=== PATIENT | male | born 1965 | race African-American/Black ===

== ENCOUNTER 2018-10-11 07:45 | Inpatient (IN) ==
--- NOTE | 2018-10-10 23:26 | History & Physical Report ---
Date of Service October 10, 2018 Assessment & Plan (1) PAD (peripheral artery disease): 2. Nonhealing left lower extremity ulceration/gangrene 3. HIV/question HCV 4. Hypertension 5. Dyslipidemia 6. Neuropathy Patient with left lower extremity gangrene involving first second and third digits and extending into the forefoot. Patient previously seen by orthopedics and digit amputation versus TMA versus BKA being discussed. Review of prior vascular imaging suggest multilevel complex peripheral arterial disease. Left ANGÉLICA consistent with severe ischemia inadequate for wound healing. Plan to proceed with bilateral lower extremity angiogram and potential endovascular intervention to left lower extremity PAD. History of Present Illness Primary Care Provider: [facility] Jn Mr. Iqbal is a 53-year-old prisoner at [facility] with a history of HIV, ?HCV, hypertension, dyslipidemia, reported schizoaffective disorder, neuropathy seen initially in the setting of peripheral arterial disease and extensive left lower extremity ulceration/gangrene. Patient is a difficult historian but reports ulceration involving his distal lower extremity for at least the last 2 months. Despite treatment at the present wound he will continue to progress and was seen by the wound care center initially on 09/17/2018. Prior to recent wounds patient states was active, exercising without claudication. Denies any history of prior vascular intervention. No history of diabetes. Prior vascular testing: CTA 07/2018 extensive atherosclerotic plaque without aneurysm or significant stenosis. Left distal common iliac stenosis with greater than 50% stenosis, significant stenosis of proximal left external iliac (max diameter 6 mm, min 4 mm external iliac). Short occlusion of left SFA with reconstitution in the proximal segment and severe diffuse disease involving remainder of SFA. Popliteal irregularities. Bilateral three-vessel runoff. Arterial duplex 09/2018: Right ANGÉLICA/TBI 1.0/0.73, left ANGÉLICA/TBI 0.31/unobtainable Right 50 to 74% stenosis in right common iliac/proximal external iliac. Mid SFA 50 to 74% stenosis. 75 to 99% mid ELPIDIO Left proximal external iliac 75 to 99% stenosis (PSV 508), 75 to 99% proximal left PFA (PSV 738), 75 to 99% proximal to mid SFA (PSV 252), 75 to 99% left mid ELPIDIO Allergies Allergy/AdvReac Type Severity Reaction Status Date / Time ibuprofen [From Motrin] AdvReac Unknown Verified 09/17/18 14:24 Home Medications Home Medications Medication Instructions Recorded Confirmed Type abacavir 600 mg-dolutegravir 50 1 tab PO DAILY 09/17/18 09/17/18 History mg-lamivudine 300 mg tablet amoxicillin 875 mg-potassium 1 tab PO BID 09/17/18 09/17/18 History clavulanate 125 mg tablet aspirin 81 mg tablet,delayed 81 mg PO DAILY 09/17/18 09/17/18 History release atorvastatin 10 mg tablet 10 mg PO DAILY 09/17/18 09/17/18 History celecoxib 100 mg capsule 100 mg PO HS cap 09/17/18 09/17/18 History cholecalciferol (vitamin D3) 5,000 5,000 units PO DAILY 09/17/18 09/17/18 History unit capsule diphenhydramine 25 mg capsule 50 mg PO HS cap 09/17/18 09/17/18 History emollient combination no.92 ea TOP ml 09/17/18 09/17/18 History topical lotion gabapentin 400 mg capsule 400 mg PO BID 09/17/18 09/17/18 History lisinopril 10 mg tablet 10 mg PO DAILY 09/17/18 09/17/18 History Past Med/Surg History Medical History HIV (human immunodeficiency virus infection) (Chronic) HTN (hypertension) (Chronic) Hyperlipidemia (Chronic) PVD (peripheral vascular disease) (Chronic) Schizo-affective schizophrenia, chronic condition (Chronic) Social History Preferred Language: Peruvian Communication Ability: Effective Hearing Ability: Normal Beliefs That Will Affect Care: None Review of Systems All systems reviewed & are unremarkable except as noted in HPI & below Physical Exam Constitutional: WD/WN, vitals as above no acute distress Eyes: + anicteric sclerae Respiratory: normal respiratory effort, lungs clear to auscultation Cardiovascular: Rate/Rhythm: regular rate Nonpalpable DP/PT pulses on the left. Toes dressed. Wound clinic images reviewed. Small superficial ulceration involving left medial leg, large superficial ulceration with gangrene involving left medial foot and gangrene involving first second and third toes Gastrointestinal (Abdomen): Inspection/Auscultation: normal bowel sounds Percussion/Palpation: abdomen soft; abdomen nontender Skin: + lesion, + ulcer and + wound Neurologic: moves all extremities Psychiatric: Orientation: alert and oriented x 3 ASA Classification ASA ASA3
[~2018-10-11 07:45] MED LIST: SODIUM CHLORIDE 0.9% 1000ML 1,000 ML IV SCH
[2018-10-11] MEDS ORDERED: NITROGLYCERIN/D5W 100MCG/ML 20ML SYR ONE (09:39)
--- NOTE | 2018-10-11 10:04 | History & Physical Bridge Note ---
Date of Service October 11, 2018 History & Physical Bridge Note I have examined the patient, reviewed the History & Physical and in the interval since the performance of the History & Physical I have noted the following changes of clinical significance: no changes noted
--- NOTE | 2018-10-11 10:05 | Pre Anesthesia Assessment ---
Date of Service October 11, 2018 Pre Sedation Assessment Vital Signs Temp Pulse Resp BP Pulse Ox 10/11/18 08:13 36.7 C 85 18 151/89 H 100 Cardiovascular RRR, no murmur, no edema Respiratory normal respiratory effort, lungs clear to auscultation Pre-Sedation Airway Assessment Smoking Status: Current some day smoker Hx Sleep Apnea: No Hx Difficult Intubation: No Short, Thick Neck: No Thyromental Distance: > or= 3.5 Finger Breadths Oral Cavity: + WNL Mallampati Class: I ASA: ASA3 NPO Status Date of Last Intake of Fluids: 10/10/18 Time of Last Intake of Fluids: 23:00 Date of Last Intake of Solid Food: 10/10/18 Time of Last Intake of Solid Foods: 23:00 Procedure Planning Contraindications for Sedation: none Current Medications Reviewed: Yes Notes The planned sedation has been discussed with the patient. Informed Consent was obtained. I have identified the patient, determined the appropriateness of sedation and have assessed the patient immediately prior to the procedure. All medicine(s) and interventions are by my order.
[2018-10-11] MEDS ORDERED: HEPARIN SOD (PORCINE) 1000 UNIT/ML 10 ML VIAL ONE (11:18)
[2018-10-11] MEDS ORDERED: fentaNYL citrate 100 MCG/2 ML VIAL ONE ×3 (11:18→12:37)
[2018-10-11] MEDS ORDERED: MIDAZOLAM HCL 1 MG/ML 2ML VIAL ONE ×2 (11:18→12:05)
[2018-10-11] MEDS ORDERED: LIDOCAINE HCL 1% 20 ML VIAL INJ ONE (11:43)
[2018-10-11] MEDS ORDERED: NiCARDipine HCL INJ 2.5 MG/ML 10 ML AMP ONE (11:54)
[2018-10-11] MEDS ORDERED: NITROGLYCERIN 5 MG/ML 10 ML VIAL ONE (11:54)
[2018-10-11] MEDS ORDERED: MIX: VIPERSLIDE 20ML + NITRO 5MG + NSS 1000ML IART ONE (14:56)
--- NOTE | 2018-10-11 14:58 | Post Anesthesia Assessment ---
Date of Service October 11, 2018 Post Sedation Assessment Vital Signs Temp Pulse Pulse Resp BP BP Pulse Ox 10/11/18 14:50 93 H 15 145/90 H 99 10/11/18 14:45 92 H 15 122/86 100 10/11/18 14:40 91 H 15 154/88 H 100 10/11/18 14:35 92 H 15 131/92 100 10/11/18 14:30 99 H 15 137/85 100 10/11/18 14:25 90 17 137/90 100 10/11/18 14:20 87 17 151/89 H 100 10/11/18 14:15 89 15 151/89 H 100 10/11/18 14:10 100 H 13 155/85 H 100 10/11/18 14:05 91 H 13 160/94 H 100 10/11/18 14:00 87 15 154/86 H 100 10/11/18 13:55 86 15 148/86 H 100 10/11/18 13:50 97 H 15 165/89 H 100 10/11/18 13:45 94 H 15 164/87 H 100 10/11/18 13:40 88 15 143/93 H 100 10/11/18 13:35 98 H 15 145/99 H 100 10/11/18 13:30 97 H 15 161/92 H 100 10/11/18 13:25 95 H 15 170/94 H 100 10/11/18 13:20 99 H 15 146/90 H 100 10/11/18 13:15 96 H 14 158/92 H 100 10/11/18 13:10 102 H 15 170/97 H 100 10/11/18 13:05 101 H 14 173/100 H 100 10/11/18 13:00 105 H 16 175/99 H 100 10/11/18 12:55 109 H 15 176/107 H 100 10/11/18 12:50 107 H 14 179/99 H 100 10/11/18 12:45 107 H 17 182/117 H 100 10/11/18 12:40 110 H 17 170/104 H 100 10/11/18 12:35 111 H 14 190/110 H 100 10/11/18 12:30 114 H 16 164/113 H 100 10/11/18 12:25 114 H 16 164/113 H 100 10/11/18 12:20 105 H 21 195/111 H 100 10/11/19 12:16 109 H 22 167/94 H 10/11/18 12:11 97 H 20 188/101 H 10/11/18 12:06 95 H 14 166/90 H 10/11/18 12:01 87 16 180/94 H 10/11/18 11:56 89 13 155/90 H 10/11/18 11:51 93 H 14 155/95 H 10/11/18 11:46 98 H 14 169/105 H 10/11/18 11:41 85 20 154/81 H 10/11/18 11:36 82 20 159/91 H 10/11/18 11:22 87 20 169/88 H 10/11/18 08:13 36.7 C 85 18 151/89 H 100 Recovery Score Activity: Moves 4 extremities Respiration: Deep Breath/Cough Circulation: +/-20% PreAnes Value Consciousness: Fully Awake Oxygen Saturation: O2 needed for >90% Discharge Sedation Level of Care: Fast Track Phase II Post Sedation Plan On clinical assessment, the patient appears to have tolerated the sedation without complications. Patient is recovering as anticipated. Patient will continue to be monitored by nursing and may be discharged when sedation discharge criteria are met per below protocol. Upon Completions of procedure and additional 15 minutes continue every 5 minute vital signs and the P.A.R. score; then discharge to a Phase I or Fast Track to Phase II per the following guidelines: * Discharge Patient to appropriate Phase II area if PAR is 8 or greater or return to pre- procedure baseline. The post - procedure orders will be as directed. * If PAR score is less than 8 or not return to pre-procedure baseline then patient will follow Phase I monitoring till PAR is reached for Phase II. The Phase I may be done in procedure room or may call to secure a Phase I area. * If naloxone or flumazenil are used for reversal, hold in Phase I for continued monitoring from when last reversal dose was given for a minimum of 60 minutes or longer pending the nurse and/or physician discretion of patient condition before discharge to Phase II. Please call the Sedation Physician to re-evaluate and complete post-note for discharge to Phase II area. Do NOT discharge from procedure sedation or Phase 1 until post- sedation evaluation note is complete by procedure /sedation MD Sedation Discharge Instructions to be given to the patient at discharge to home.
[2018-10-11] MEDS ORDERED: ACETAMINOPHEN 325 MG TAB PO PRN (15:05)
[2018-10-11] MEDS ORDERED: ONDANSETRON INJ 2 MG/ML 2 ML VIAL IV PRN (15:05)
[2018-10-11] MEDS ORDERED: CLOPIDOGREL BISULFATE 300 MG TAB PO STA (15:05)
--- NOTE | 2018-10-11 15:05 | Post Operative Brief Note ---
Immediate Post Op Note v1 Date of Surgery October 11, 2018 Pre & Post Diagnosis Operation Date: 10/11/18 08:00 <No data on this case meets the specified criteria> Operation Date: 10/11/18 10:00 Pre-Op Diagnosis: Peripheral Arterial Disease Post-Op Diagnosis: Peripheral Arterial Disease Procedure Operation Date: 10/11/18 08:00 <No data on this case meets the specified criteria> Operation Date: 10/11/18 10:00 Actual Procedures p Bilateral Lower Extremitiy Angiogram, Percutaneous Transluminal Angioplasty and Stenting of Left Superficial Femoral Artery, Moderate Sedation from 1136 - (Bilateral) - Thomas Vázquez MD Surgeon Fortino Vázquez MD Wireless Manager Nisha Estimated Blood Loss 50 Findings Consistent with Post-Op Diagnosis Left lower extremity: Severe distal LAURY/prox external iliac stenosis. Occluded ostial SFA Severe ostial profunda 3 vessel runoff to foot Successful stenting of LAURY/external iliac with single self-expanding stent (7.0 x 60mm) Successful SEROLOGY TECHNICIAN and stenting of proximal to distal SFA (5.0 x 100 protege SES, 5.0 x 80 Tigris). SEROLOGY TECHNICIAN of SFA complicated by compromised flow in profunda -- treated with prolonged balloon dilation of ostium Concern for PROGRAMMING DEVELOPMENT PROJECT MANAGER perforation -- treated with prolonged balloon inflation. Post inflation no significant extravasation and no hematoma visible on ultrasound.
--- NOTE | 2018-10-11 15:31 | Consultation ---
Date of Consultation October 11, 2018 Assessment & Plan (1) PAD (peripheral artery disease): s/p angio and stenting with Dr. Vázquez on 10/11 Question of MINING AND QUARRYING MACHINERY REPAIRER perf, s/p balloon inflation on 10/11 Overnight monitoring Planning for duplex in AM and if WNL, possible d/c Anticoagulation, diet as per Dr. Vázquez (2) Schizo affective schizophrenia: Pt states he is on no psych medications Paperwork with him in room supports this (3) HTN (hypertension): continue home meds (4) Peripheral neuropathy: continue home meds (5) HIV (human immunodeficiency virus infection): continue home meds (6) DVT prophylaxis: As per Dr. Vázquez History of Present Illness Attending Physician: Fortino Vázquez MD History of Present Illness 53 y/o M who was admitted on 10/11 s/p L arterial angio and stenting with Dr. Vázquez. Dr. Vázquez reports that during the procedure there was some concern for possible perfed MINING AND QUARRYING MACHINERY REPAIRER. Balloon inflation was done and per his report, pt is stable now. He does need admitted for overnight monitoring. Dr. Vázquez plans for f/u duplex US in AM. Briefly, pt had a hx of a nonhealing L foot ulcer that became gangrenous. He was seen by both ortho and [facility] and ultimately sent to Dr. Vázquez for angio and stenting. Pt denies fever, SOB, chest pain, abd pain, n/v/c/d, LE swelling. He states he does have pain and itching to the L LE. He notes that he is very hungry. Tolerating water currently. Allergies Allergy/AdvReac Type Severity Reaction Status Date / Time ibuprofen [From Motrin] AdvReac Unknown Verified 10/11/18 08:07 Home Medications Home Medications Medication Instructions Recorded Confirmed Type abacavir 600 mg-dolutegravir 50 1 tab PO DAILY 09/17/18 10/11/18 History mg-lamivudine 300 mg tablet amoxicillin 875 mg-potassium 1 tab PO BID 09/17/18 10/11/18 History clavulanate 125 mg tablet aspirin 81 mg tablet,delayed 81 mg PO DAILY 09/17/18 10/11/18 History release atorvastatin 10 mg tablet 10 mg PO DAILY 09/17/18 10/11/18 History celecoxib 100 mg capsule 100 mg PO HS cap 09/17/18 10/11/18 History cholecalciferol (vitamin D3) 5,000 5,000 units PO DAILY 09/17/18 10/11/18 History unit capsule diphenhydramine 25 mg capsule 50 mg PO HS cap 09/17/18 10/11/18 History emollient combination no.92 ea TOP ml 09/17/18 09/17/18 History topical lotion gabapentin 400 mg capsule 800 mg PO BID 09/17/18 10/11/18 History lisinopril 10 mg tablet 10 mg PO DAILY 09/17/18 10/11/18 History Patient History Medical History HIV (human immunodeficiency virus infection) (Chronic) HTN (hypertension) (Chronic) Hyperlipidemia (Chronic) PVD (peripheral vascular disease) (Chronic) Schizo-affective schizophrenia, chronic condition (Chronic) Social History Preferred Language: Croatian Communication Ability: Effective Hearing Ability: Normal Overhead Cleaner Maintainer Required: No Beliefs That Will Affect Care: None Current Living Situation: Other Current Living Situation Comment: correctional facility Other Information That Helps Us Care for You: No Feels Safe at Home: Yes Safety Concerns: Feels Safe At This Time Smoking Status: Current some day smoker Hx Alcohol Use: No Hx Substance Use: No Review of Systems Review of Systems: Pertinent positives and negatives reviewed in HPI--all others negative Physical Exam Constitutional: WD/WN, vitals as above Eyes: normal visual syed by confrontation and + anicteric sclerae Neck: normal visual inspection and trachea midline Respiratory: normal respiratory effort, lungs clear to auscultation Cardiovascular: Rate/Rhythm: regular rate and regular rhythm Gastrointestinal (Abdomen): Inspection/Auscultation: abdomen not distended Percussion/Palpation: abdomen soft; abdomen nontender Musculoskeletal: Head/Neck/Chest: normocephalic and head atraumatic negative for edema, peripheral pulses intact Skin: L LE with wrapping, clean and dry Neurologic: awake; not confused Speech / Cognition: normal speech Psychiatric: A+Ox3, euthymic affect Results & Data Vital Signs (Past 12 Hours) Vital Signs Temp Pulse Pulse Resp BP BP Pulse Ox 10/11/18 15:05 94 H 15 135/91 98 10/11/18 15:00 92 H 15 147/78 H 98 10/11/18 14:55 103 H 15 159/86 H 99 10/11/18 14:50 93 H 15 145/90 H 99 10/11/18 14:45 92 H 15 122/86 100 10/11/18 14:40 91 H 15 154/88 H 100 10/11/18 14:35 92 H 15 131/92 100 10/11/18 14:30 99 H 15 137/85 100 10/11/18 14:25 90 17 137/90 100 10/11/18 14:20 87 17 151/89 H 100 10/11/18 14:15 89 15 151/89 H 100 10/11/18 14:10 100 H 13 155/85 H 100 10/11/18 14:05 91 H 13 160/94 H 100 10/11/18 14:00 87 15 154/86 H 100 10/11/18 13:55 86 15 148/86 H 100 10/11/18 13:50 97 H 15 165/89 H 100 10/11/18 13:45 94 H 15 164/87 H 100 10/11/18 13:40 88 15 143/93 H 100 10/11/18 13:35 98 H 15 145/99 H 100 10/11/18 13:30 97 H 15 161/92 H 100 10/11/18 13:25 95 H 15 170/94 H 100 10/11/18 13:20 99 H 15 146/90 H 100 10/11/18 13:15 96 H 14 158/92 H 100 10/11/18 13:10 102 H 15 170/97 H 100 10/11/18 13:05 101 H 14 173/100 H 100 10/11/18 13:00 105 H 16 175/99 H 100 10/11/18 12:55 109 H 15 176/107 H 100 10/11/18 12:50 107 H 14 179/99 H 100 10/11/18 12:45 107 H 17 182/117 H 100 10/11/18 12:40 110 H 17 170/104 H 100 10/11/18 12:35 111 H 14 190/110 H 100 10/11/18 12:30 114 H 16 164/113 H 100 10/11/18 12:25 114 H 16 164/113 H 100 10/11/18 12:20 105 H 21 195/111 H 100 10/11/18 12:16 109 H 22 167/94 H 10/11/18 12:11 97 H 20 188/101 H 10/11/18 12:06 95 H 14 166/90 H 10/11/18 12:01 87 16 180/94 H 10/11/18 11:56 89 13 155/90 H 10/11/18 11:51 93 H 14 155/95 H 10/11/18 11:46 98 H 14 169/105 H 10/11/18 11:41 85 20 154/81 H 10/11/18 11:36 82 20 159/91 H 10/11/18 11:22 87 20 169/88 H 10/11/18 08:13 36.7 C 85 18 151/89 H 100
[2018-10-11] MEDS: SODIUM CHLORIDE 0.9% 1000ML 1,000 ML IV SCH (15:33)
--- NOTE | 2018-10-11 16:30 | Operative Report ---
Post Operative Report Pre & Post Diagnosis Operation Date: 10/11/18 08:00 <No data on this case meets the specified criteria> Operation Date: 10/11/18 10:00 Pre-Op Diagnosis: Peripheral Arterial Disease Post-Op Diagnosis: Peripheral Arterial Disease Procedure Operation Date: 10/11/18 08:00 <No data on this case meets the specified criteria> Operation Date: 10/11/18 10:00 Actual Procedures p Bilateral Lower Extremitiy Angiogram, Percutaneous Transluminal Angioplasty and Stenting of Left Superficial Femoral Artery, Moderate Sedation from 1136 - (Bilateral) - Thomas Vázquez MD Surgeon Fortino Vázquez MD Senior Reliability Engineer Nisha Estimated Blood Loss 50 Findings Consistent with Post-Op Diagnosis Left lower extremity findings: 70% distal LAURY/proximal external iliac with more than 30 mmHg pressure gradient Calcified BREAST BUFFER with moderate stenosis Severe ostial profunda stenosis Occluded SFA at ostium. Reconstitutes in mid segment via collaterals from profunda. 40-50% distal SFA/profunda disease. Patent three-vessel runoff to the foot Right lower extremity findings: Mild to moderate external iliac stenosis BREAST BUFFER with minimal disease and suitable for device closure Specimens none Drains none Complications none Disposition Disposition: PCU Description of Procedure Right common femoral access obtained via under ultrasound guidance, short 5Fr sheath place LLE angiogram performed with RIM catheter Up an over with RIM catheter and glide advantage wire 7 Fr 45 cm destination sheath placed to BREAST BUFFER 0.18V 18 wire placed into profunda With aid of a quick cross catheter and glide advantage wire able to cross ostial SFA occlusion. Intraluminal position confirmed with injection through a cross catheter SFA dilated with 4.0 and 5.0 balloons SFA proximal to distal vessel stented with 2 stents (proximal 5.0 x 100 protege self-expanding, mid 5.0 x 80 Tigris) With ballooning of ostial SFA flow compromise in profunda Ostium of profunda dilated with 3.0 balloon After dilation concern for possible BREAST BUFFER perforation treated with multiple prolonged balloon inflations to BREAST BUFFER Ultrasound obtained in OR showed no hematoma and intact flow in BREAST BUFFER, SFA/profunda Destination sheath pullback across external iliac stenosis with more than 30 mmHg gradient 7 x 60 mm self-expanding stent placed from common iliac to external iliac Post procedure good angiographic result, no evidence of residual dissection/perforation and with well-expanded stents and three-vessel distal runoff. Contrast used: 300 Access closure: Starclose Summary: 1. Left lower extremitysevere iliac stenosis, severe ostial profunda disease, occluded ostial to mid SFA. Three-vessel distal runoff 2. Right lower extremitymild to moderate external iliac disease 3. Successful stenting of common iliac/proximal external iliac artery with single self-expanding stent (7.0 x 60 mm). 4. Successful angioplasty, stenting of proximal to distal SFA with 2 overlapping stents (5.0 x 100 protoge stent, 5.0 Tigris). 5. MAILING MACHINE OPERATOR of ostial profunda/BREAST BUFFER in setting of questionable perforation. No extravasation on final images and no hematoma on ultrasound. Recommendations: Continue DAPT with ASA/Clopidogrel for 1 month Repeat arterial duplex tomorrow. Orthopedics consult to further discuss left lower extremity amputation options. Follow-up non-invasive testing in 1 moth. I attest to the content of the Intraoperative Record and any orders documented therein. Any exceptions are noted below.
[2018-10-11] MEDS: CLOPIDOGREL BISULFATE 75 MG TAB PO SCH (16:38)
[2018-10-11] MEDS ORDERED: PNEUMOCOCCAL POLYSACCHARIDES 25 MCG/0.5 ML VIAL/SYR IM ONE (17:00)
[2018-10-11] MEDS ORDERED: PNEUMOCOCCAL ADMINISTRATION CHARGE ONE (17:00)
[2018-10-11] MEDS: AMOXICILLIN/CLAVULANATE 875 MG TAB PO SCH (20:25)
[2018-10-11] MEDS: GABAPENTIN 400 MG CAP PO SCH (20:25)
[2018-10-12] MEDS: SODIUM CHLORIDE 0.9% 1000ML 1,000 ML IV SCH ×2 (00:50→10:38)
[2018-10-12 06:08] LABS: Basophils # (auto) 0.01 K/uL (0-0.2); Basophils % (auto) 0.1 %; Eosinophils # (auto) 0.03 K/uL (0-0.5); Eosinophils % (auto) 0.3 %; Hematocrit (blood only) 32.4 % (42-52); Hemoglobin 10.7 g/dL (14.0-18.0); Immature Granulocytes # (auto) 0.03 K/uL (0.00-0.02); Immature Granulocytes % (auto) 0.3 %; Lymphocytes # (auto) 1.79 K/uL (1.2-3.4); Lymphocytes % (auto) 15.8 %; Mean Corpuscular Volume 84.6 fL (80-100); Mean Platelet Volume 9.1 fL (7.4-10.4); Monocytes # (auto) 1.51 K/uL (0.11-0.59); Monocytes % (auto) 13.3 %; Neutrophils # (auto) 7.97 K/uL (1.4-6.5); Neutrophils % (auto) 70.2 %; Platelet Count 240 K/uL (130-400); RDW Coefficient of Variation 13.9 % (11.5-14.5); RDW Standard Deviation 42.4 fL (36.4-46.3); Red Blood Count 3.83 M/uL (4.7-6.1); White Blood Count 11.34 K/uL (4.8-10.8)
[2018-10-12 06:35] LABS: Creatinine Clr Calc Pharmacy 72.6 ml/min; Est GFR (African American) 93.2; Est GFR (Non-African American) 80.5
[2018-10-12] MEDS: AMOXICILLIN/CLAVULANATE 875 MG TAB PO SCH (08:23)
[2018-10-12] MEDS: GABAPENTIN 400 MG CAP PO SCH ×2 (08:23→20:45)
[2018-10-12] MEDS: LISINOPRIL 10 MG TAB PO SCH (08:23)
[2018-10-12] MEDS: ATORVASTATIN 40 MG TAB PO SCH (08:24)
[2018-10-12] MEDS: CHOLECALCIFEROL 1,000 UNITS TAB PO SCH (08:24)
[2018-10-12] MEDS: ASPIRIN 81 MG ECTAB PO SCH (08:25)
[2018-10-12] MEDS: HYDROCODONE/ACETAMOPHEN 5/325MG TAB PO PRN ×2 (09:05→16:34)
--- NOTE | 2018-10-12 12:35 | Ultrasound Report ---
Study: Arterial Doppler left leg. history: Postoperative claudication FINDINGS: Critical stenosis with velocities exceeding 600 cm/s mid common femoral head the stent is p atent. There also considerable velocity increase is immediately distal to the stent. Posterior tibial ankle brachial index on the left is 0.28. Dorsalis pedis is 0.26. IMPRESSION: 1. Findings consistent with a critical stenosis immediately proximal to the left femoral arterial nitin nt. 2. Moderate stenosis immediately distal to the stent. 3. Stent itself is patent. Electronically signed by: Terry Juan M.D. 10/12/2018 12:34 PM
--- NOTE | 2018-10-12 17:11 | Cardiology Progress Note ---
Date of Service October 12, 2018 Assessment & Plan (1) PAD (peripheral artery disease): 2. Nonhealing left lower extremity ulceration/gangrene 3. HIV/question HCV 4. Hypertension 5. Dyslipidemia 6. Neuropathy Post Iliac and SFA stenting yesterday. Reviewed repeat arterial duplex today -- has residual ostial SFA disease and compromised flow in profunda. ANGÉLICA <0.30. Discussed options with [facility] and [facility] vascular surgery. in the setting of extensive gangrene/?likely need for BKA, utility of open revascularization felt to be limited. Feel reasonable to try and optimize flow with repeat angioplasty to SFA/profunda on Sunday. Ortho consulted. Continue ASA/plavix. Subjective Patient feeling well today. No pain at right WELDER METAL FAB access. No pain in left lower extremity. Review of Systems Review of Systems: All systems reviewed & are unremarkable except as noted in HPI & below Physical Exam Constitutional: WD/WN, vitals as above no acute distress Eyes: + anicteric sclerae ENMT: Mallampati Class: I Respiratory: normal respiratory effort, lungs clear to auscultation Cardiovascular: RRR, no murmur, no edema Rate/Rhythm: regular rate Vessels: no JVD RT WELDER METAL FAB access small residual hematoma. Pulse intact LT WELDER METAL FAB pulse patent, diminished popliteal. faint DP pulses. Extensive, foul smelling LLE gangrene. Lymphadenopathy Gastrointestinal (Abdomen): Inspection/Auscultation: normal bowel sounds Percussion/Palpation: abdomen soft; abdomen nontender Skin: + lesion, + ulcer and + wound Neurologic: moves all extremities Psychiatric: Orientation: alert and oriented x 3 Results & Data Vital Signs (Past 12 Hours) Vital Signs Temp Pulse Pulse Resp BP BP Pulse Ox 10/12/18 15:37 37 C 88 20 126/58 L 100 10/12/18 15:18 88 10/12/18 11:13 36.8 C 83 18 132/72 100 10/12/18 08:00 86 10/12/18 07:04 36.9 C 86 18 156/76 H 92
[2018-10-12] MEDS ORDERED: VANCOMYCIN CONSULT ACTIVE PRN (18:52)
[2018-10-12] MEDS ORDERED: PIPERACILL/TAZOBAC CONSULT ACTIVE PRN (18:52)
--- NOTE | 2018-10-12 18:55 | Hospitalist Progress Note ---
Date of Service October 12, 2018 Assessment & Plan (1) Gangrene of left foot: Secondary to severe PAD This is dry gangrene No evidence of sepsis at this time, afebrile but does have a leukocytosis -DC p.o. Augmentin and switch to IV Zosyn and vancomycin for broad spectrum coverage to prevent spread of infection and sepsis while awaiting further vascular intervention and likely BKA -Follow clinically -Follow CBC in the morning -Continue pain control and Benadryl as needed for itching of the foot-patient requests stronger anti-itch medicine-we will give IV Benadryl at bedtime (2) PAD (peripheral artery disease): Status post angiography with Iliac and SFA stenting on 10/[address] Vázquez Question of INSPECTION MACHINE TENDER perf during the procedure, s/p balloon inflation on 10/11-now stable and no evidence of bleeding Repeat arterial Doppler of the left lower extremity today with residual ostial SFA disease and compromised flow in profunda. ANGÉLICA <0.30. Dr. Vázquez discussed options with [facility] and [facility] vascular surgery. In the setting of extensive gangrene/?likely need for BKA, utility of open revascularization felt to be limited. -Dr. Vázquez plans to try and optimize flow with repeat angioplasty to SFA/profunda on Sunday. Ortho consulted-discussed case with orthopedics and will perform a minimum a Symes amputation and possibly BKA depending on outcome of repeat revascularization attempt on Sunday. Continue ASA/plavix, continue statin (3) Schizo affective schizophrenia: Pt states he is on no psych medications Paperwork with him supports this (4) HTN (hypertension): Controlled -Continue lisinopril 10 mg daily (5) Peripheral neuropathy: Fairly well-controlled -Continue gabapentin, hydrocodone as needed (6) HIV (human immunodeficiency virus infection): -I do not have his most recent CD4 count or laboratory values otherwise pertaining to his HIV It appears he is not on any prophylactic medications as per his home medication list, therefore I would presume he has a good count -His home Triumeq is not available here-I have asked the [facility] guards to obtain it from the [facility] and bring it tomorrow so he can continue on it (7) Itch: Benadryl 50 mg p.o. every 8 hours as needed itch during the day and 25 mg IV nightly scheduled (8) DVT prophylaxis: No chemical prophylaxis at this time due to recent angioplasty with procedure and suspected INSPECTION MACHINE TENDER perforation -Disposition-remain on PCU/telemetry We will accept this patient onto our hospitalist service as the primary attending as discussed with cardiology Continued stay Subjective Patient reports a lot of itching in the left foot. He is upset that he might have to have a BKA. Denies chest pain or shortness of breath. I discussed the case with cardiology and with orthopedic surgery. Telemetry with normal sinus rhythm with rates in the 80s to 90s Review of Systems Review of Systems: All systems reviewed & are unremarkable except as noted in HPI & below Physical Exam Constitutional: + cachectic; no acute distress Eyes: + anicteric sclerae Neck: trachea midline, no thyromegaly Respiratory: normal respiratory effort, lungs clear to auscultation Cardiovascular: RRR, no murmur, no edema Vessels: + dorsalis pedis pulses abnormal (On left) Musculoskeletal: Extremities: + extremities abnormal to inspection (Left great through fourth toes all blackened, history of old, dorsal foot with open wound no exudate) and no cyanosis Neurologic: moves all extremities and awake; no focal motor deficits Psychiatric: A+Ox3, euthymic affect Results & Data Vital Signs (Past 12 Hours) Vital Signs Temp Pulse Pulse Resp BP BP Pulse Ox 10/12/18 15:37 37 C 88 20 126/58 L 100 10/12/18 15:18 88 10/12/18 11:13 36.8 C 83 18 132/72 100 10/12/18 08:00 86 10/12/18 07:04 36.9 C 86 18 156/76 H 92 Laboratory Results 10/12/18 10/12/18 Range/Units 05:34 05:34 WBC 11.34 H (4.8-10.8) K/uL RBC 3.83 L (4.7-6.1) M/uL Hgb 10.7 L (14.0-18.0) g/dL Hct 32.4 L (42-52) % MCV 84.6 (80-100) fL MCH 27.9 (25-34) pg MCHC 33.0 (32-36) g/dL RDW Std Deviation 42.4 (36.4-46.3) fL RDW Coeff of Joanna 13.9 (11.5-14.5) % Plt Count 240 (130-400) K/uL MPV 9.1 (7.4-10.4) fL Immature Gran % (Auto) 0.3 % Neut % (Auto) 70.2 % Lymph % (Auto) 15.8 % [place] % (Auto) 13.3 % Eos % (Auto) 0.3 % Baso % (Auto) 0.1 % Immature Gran # (Auto) 0.03 H (0.00-0.02) K/uL Neut # (Auto) 7.97 H (1.4-6.5) K/uL Lymph # (Auto) 1.79 (1.2-3.4) K/uL [place] # (Auto) 1.51 H (0.11-0.59) K/uL Eos # (Auto) 0.03 (0-0.5) K/uL Baso # (Auto) 0.01 (0-0.2) K/uL Creatinine 1.04 (0.6-1.4) mg/dl Est Cr Clr Drug Dosing 72.6 ml/min Est GFR ( Amer) 93.2 Est GFR (Non-Af Amer) 80.5 Diagnostic Findings Study: Arterial Doppler left leg. history: Postoperative claudication FINDINGS: Critical stenosis with velocities exceeding 600 cm/s mid common femoral head the stent is patent. There also considerable velocity increase is immediately distal to the stent. Posterior tibial ankle brachial index on the left is 0.28. Dorsalis pedis is 0.26. IMPRESSION: 1. Findings consistent with a critical stenosis immediately proximal to the left femoral arterial stent. 2. Moderate stenosis immediately distal to the stent. 3. Stent itself is patent.
[2018-10-12] MEDS ORDERED: VANCOMYCIN HCL 1,000 MG in SODIUM CHLORIDE 0.9% 250 ML IV SCH (19:00)
[2018-10-12] MEDS ORDERED: PIPERACILLIN/TAZOBACTAM 3.375 GM in DEXTROSE 5% 100 ML IV SCH (19:00)
[2018-10-12] MEDS ORDERED: VANCOMYCIN HCL 1,500 MG in SODIUM CHLORIDE 0.9% 500 ML IV ONE (20:00)
[2018-10-12] MEDS ORDERED: PIPERACILLIN/TAZOBACTAM 3.375 GM in DEXTROSE 5% 100 ML IV ONE (20:00)
[2018-10-12] MEDS: DiphenhydrAMINE HCL 50 MG/ML VIAL IV SCH (20:46)
[2018-10-13] MEDS: SODIUM CHLORIDE 0.9% 1000ML 1,000 ML IV SCH ×2 (00:18→07:27)
--- NOTE | 2018-10-13 00:59 | Consultation Report ---
DATE OF CONSULTATION: 10/12/2018 PERTINENT HISTORY: This is a 53-year-old gentleman seen at request of Dr. Thomas Vázquez regarding left foot gangrene. He had been scheduled for intravascular procedure. Dr. Vázquez for vascular insufficiency and had some potential complications. The patient was admitted to the hospital. He is going to repeat procedure and attempt revascularization. The patient has a complicated medical course and severe advanced gangrene with severe ischemia. PAST MEDICAL HISTORY: Hypertension, dyslipidemia, peripheral vascular disease, HIV, question HCV, schizoaffective disorder, neuropathy, extensive left lower extremity ulceration gangrene. PAST SURGICAL HISTORY: Prior percutaneous vascular procedure with stenting. ALLERGIES: IBUPROFEN, UNKNOWN REACTION. MEDICATIONS: Please note the extensive list provided in the medical record. SOCIAL HISTORY: Incarcerated individual, lives in correctional facility. He smokes cigarettes. Denies alcohol or drug use. PHYSICAL EXAM: GENERAL: This is a cachectic appearing 53-year-old gentleman who is present with 2 guards at bedside. He is awake and alert, oriented x3. Speech clear and fluent. Affect is appropriate. EXTREMITIES: Examination of left lower extremity demonstrates a quarter-sized lesion on his mid medial tibia. He has obvious gangrene of the first, second, third and portion of the 4th toes with a black and hardened skin. Limited if any range of motion both active and passive at the forefoot, of the first, second and third and some of the 4th toes. He has a fixed rigid contracture of the right foot, nonpalpable pulses. Foot is somewhat warm. He has ischemic ulceration in the dorsal portion of the foot extending proximally to the mid foot. Zone of demarcation at the watershed region consistent with dorsalis pedis artery dysfunction. LABORATORIES AND IMAGING: Reviewed. IMPRESSION: 1. Left foot gangrene. 2. Gangrene of the 1st, 2nd, 3rd and 4th toes. 3. Severe peripheral vascular disease. 4. Ulceration of the midshaft tibia. 5. Human immunodeficiency virus positive. RECOMMENDATION: At this time, the patient is going to need some level of resection of the left foot or ankle, possibly including a below-knee amputation depending upon findings of Dr. Vázquez as the patient's next planned vascular procedure. At this point, Orthopedics will follow with you, however, when the level of resection is determined with a consultation with the other services then we can get the patient scheduled for surgery as indicated. Thank you for the opportunity to consult and care of this patient.
[2018-10-13] MEDS: PIPERACILLIN/TAZOBACTAM 3.375 GM in DEXTROSE 5% 100 ML IV SCH ×3 (02:03→19:00)
[2018-10-13 05:56] LABS: Basophils # (auto) 0.02 K/uL (0-0.2); Basophils % (auto) 0.2 %; Eosinophils # (auto) 0.09 K/uL (0-0.5); Eosinophils % (auto) 0.9 %; Hematocrit (blood only) 30.1 % (42-52); Hemoglobin 9.9 g/dL (14.0-18.0); Immature Granulocytes # (auto) 0.03 K/uL (0.00-0.02); Immature Granulocytes % (auto) 0.3 %; Lymphocytes # (auto) 1.56 K/uL (1.2-3.4); Lymphocytes % (auto) 15.1 %; Mean Corpuscular Hgb Conc 32.9 g/dL (32-36); Mean Corpuscular Volume 85.8 fL (80-100); Mean Platelet Volume 8.7 fL (7.4-10.4); Monocytes # (auto) 1.37 K/uL (0.11-0.59); Monocytes % (auto) 13.3 %; Neutrophils # (auto) 7.25 K/uL (1.4-6.5); Neutrophils % (auto) 70.2 %; Platelet Count 194 K/uL (130-400); RDW Standard Deviation 43.4 fL (36.4-46.3); Red Blood Count 3.51 M/uL (4.7-6.1); White Blood Count 10.32 K/uL (4.8-10.8)
[2018-10-13 06:34] LABS: BUN Creatinine Ratio 11.9 (10-20); Calcium 8.6 mg/dl (8.5-10.1); Creatinine Clr Calc Pharmacy 87.9 ml/min; Est GFR (African American) 108.1; Est GFR (Non-African American) 93.3; Potassium 4.3 mmol/L (3.5-5.1)
[2018-10-13] MEDS: VANCOMYCIN HCL 1,000 MG in SODIUM CHLORIDE 0.9% 250 ML IV SCH ×2 (07:27→21:04)
[2018-10-13] MEDS: CLOPIDOGREL BISULFATE 75 MG TAB PO SCH (07:28)
[2018-10-13] MEDS: GABAPENTIN 400 MG CAP PO SCH ×2 (07:28→21:05)
[2018-10-13] MEDS: CHOLECALCIFEROL 1,000 UNITS TAB PO SCH (07:28)
[2018-10-13] MEDS: ATORVASTATIN 40 MG TAB PO SCH (07:28)
[2018-10-13] MEDS: LISINOPRIL 10 MG TAB PO SCH (07:28)
[2018-10-13] MEDS: ASPIRIN 81 MG ECTAB PO SCH (07:29)
--- NOTE | 2018-10-13 11:47 | Hospitalist Progress Note ---
Date of Service October 13, 2018 Assessment & Plan (1) Gangrene of left foot: Secondary to severe PAD This is dry gangrene No evidence of sepsis at this time, afebrile but does have a leukocytosis that is decreased now down to 10 after starting IV abx -continue IV Zosyn and vancomycin for broad spectrum coverage to prevent spread of infection and sepsis while awaiting further vascular intervention and likely BKA -Follow clinically -Continue pain control and Benadryl po as needed for itching of the foot- continue IV Benadryl at bedtime (2) PAD (peripheral artery disease): Status post angiography with Iliac and SFA stenting on 10/[address] Vázquez Question of PEST CONTROL CHEMICAL TECHNICIAN perf during the procedure, s/p balloon inflation on 10/11-now stable and no evidence of bleeding Repeat arterial Doppler of the left lower extremity 10/12 with residual ostial SFA disease and compromised flow in profunda. ANGÉLICA <0.30. Dr. Vázquez discussed options with [facility] and [facility] vascular surgery. In the setting of extensive gangrene/?likely need for BKA, utility of open revasc ularization felt to be limited. -Dr. Vázquez plans to try and optimize flow with repeat angioplasty to SFA/profunda on Sunday. Ortho consulted-discussed case with orthopedics and will perform a minimum a Symes amputation and possibly BKA depending on outcome of repeat revascularization attempt on Sunday. Continue ASA/plavix, continue statin (3) Schizo affective schizophrenia: Pt states he is on no psych medications Paperwork with him supports this (4) HTN (hypertension): BPs persistently elevated -Continue lisinopril 10 mg daily -consider increasing dose of lisinopril vs adding on beta tasia if BPs remain elevated (5) Peripheral neuropathy: Fairly well-controlled -Continue gabapentin, hydrocodone as needed (6) HIV (human immunodeficiency virus infection): -I do not have his most recent CD4 count or laboratory values otherwise pertaining to his HIV It appears he is not on any prophylactic medications as per his home medication list, therefore I would presume he has a good count? -His home Triumeq is not available here-I contacted medical dept at [facility] and they will have a transmissions systems operator bring the medication today -will see if has last CD4 count in paperwork from [facility], if not, can obtain one here (7) Itch: Benadryl 50 mg p.o. every 8 hours as needed itch during the day and 50 mg IV nightly scheduled (8) DVT prophylaxis: No chemical prophylaxis at this time due to recent angioplasty with procedure and suspected PEST CONTROL CHEMICAL TECHNICIAN perforation -Disposition-stable to move to medical floor Hospitalist service is now the primary attending as discussed with cardiology Continued stay Subjective Not much pain in the leg or foot. Denies CP or SOB, no abd pain. Is making urine and moving bowels. Itching persists but was improved somewhat with IV benadryl. Tele with [facility] Review of Systems Review of Systems: All systems reviewed & are unremarkable except as noted in HPI & below Physical Exam Constitutional: + cachectic; no acute distress Eyes: PERRL, conjunctivae normal, anicteric sclerae + anicteric sclerae ENMT: external ear and nose normal, oropharynx normal Neck: trachea midline, no thyromegaly Respiratory: normal respiratory effort, lungs clear to auscultation Cardiovascular: RRR, no murmur, no edema Vessels: + dorsalis pedis pulses abnormal (On left) Gastrointestinal (Abdomen): normal bowel sounds, soft, nontender, no hepatosplenomegaly Musculoskeletal: Extremities: + extremities abnormal to inspection (Left great through fourth toes all blackened, history of old, dorsal foot with open wound no exudate) and no cyanosis Skin: no rashes, warm and dry Neurologic: moves all extremities and awake; no focal motor deficits Psychiatric: A+Ox3, euthymic affect Results & Data Vital Signs (Past 12 Hours) Vital Signs Temp Pulse Pulse Resp BP BP Pulse Ox 10/13/18 11:09 36.0 C L 82 24 130/76 100 10/13/18 08:00 70 10/13/18 07:37 70 18 157/79 H 100 10/13/18 04:06 36.7 C 88 22 142/88 H 99 Laboratory Results 10/13/18 Range/Units 05:41 Sodium 137 (136-145) mmol/L Potassium 4.3 (3.5-5.1) mmol/L Chloride 105 (98-107) mmol/L Carbon Dioxide 31 (21-32) mmol/L Anion Gap 1.0 L (3-11) BUN 11 (7-18) mg/dl Creatinine 0.92 (0.6-1.4) mg/dl Est Cr Clr Drug Dosing 87.9 ml/min Est GFR ( Amer) 108.1 Est GFR (Non-Af Amer) 93.3 BUN/Creatinine Ratio 11.9 (10-20) Glucose 99 (70-99) mg/dl Calcium 8.6 (8.5-10.1) mg/dl
--- NOTE | 2018-10-13 12:00 | Orthopedic Progress Note ---
Date of Service October 13, 2018 Assessment & Plan (1) Gangrene of left foot: 1. Left foot gangrene. 2. Gangrene of the 1st, 2nd, 3rd and 4th toes. 3. Severe peripheral vascular disease. 4. Ulceration of the midshaft tibia. 5. Human immunodeficiency virus positive. Will await dr. rea next procedure for further discussion orthopedic surgery. Most likely amputation, BKA. Subjective He notes no complaints today. Resting comfortably in bed Physical Exam Physical Exam: gangrene left foot with mid shaft lesion. limited ROM Results & Data Vital Signs (Past 12 Hours) Vital Signs Temp Pulse Pulse Resp BP BP Pulse Ox 10/13/18 11:09 36.0 C L 82 24 130/76 100 10/13/18 08:00 70 10/13/18 07:37 70 18 157/79 H 100 10/13/18 04:06 36.7 C 88 22 142/88 H 99
--- NOTE | 2018-10-13 13:22 | Pharmacy Report ---
Pharmacy Abx Initial Consult - Date of Service October 13, 2018 - Pharmacy Dosing Scope Date of Consult: 10/12/18 Consultation requested by: Dr. Fischer Pharmacy is consulted to initiate Vancomycin and Zosyn IV dosing therapy, order appropriate labs and adjust drug dose/frequency. - Subjective The patient is a 53 year old M admitted on 10/12/18 20:51. - Objective Height: 6 ft 1 in Weight: 68.5 kg Vital Signs (Past 12hrs): Vital Signs Temp Pulse Pulse Resp BP BP Pulse Ox 10/13/18 13:04 37.1 C 90 16 105/50 L 97 10/13/18 11:09 36.0 C L 82 24 130/76 100 10/13/18 08:00 70 10/13/18 07:37 70 18 157/79 H 100 10/13/18 04:06 36.7 C 88 22 142/88 H 99 Lab Results (24hrs): Laboratory Tests (24 Hours) 10/13/18 10/13/18 05:41 05:41 WBC 10.32 Neut # (Auto) 7.25 H Creatinine 0.92 Est Cr Clr Drug Dosing 87.9 - Risk Factors for Resistance HIV positive Significant PAD - Assessment & Plan Assessment 53 year old M receiving empiric vancomycin and Zosyn for treatment of gangrene of left foot secondary to severe PAD - Awaiting vascular intervention and possible BKA Plan Vancomycin IV * Estimated PK Parameters: Vd 0.7 L/kg, Davis 0.077 hr-1, t1/2 9 hr * Loading dose: 1500 mg (22 mg/kg) * Maintenance dose: 1000 mg IV (16 mg/kg) every 12 hours * Goal trough level for this patient will be 15 to 20 mcg/mL * Trough level ordered for 10/14/18 @0730 Piperacillin/tazobactam * 3.375 g bolus administered over 30 minutes, then 3.375 g IV extended infusion every 8 hours for CrCl greater than 20 mL/min Pharmacy will continue to follow and will adjust dose/frequency as necessary. Thank you.
[2018-10-13] MEDS: HYDROCODONE/ACETAMOPHEN 5/325MG TAB PO PRN (16:41)
[2018-10-13] MEDS: [UNRECOGNIZED DRUG - OTHER] PO SCH (21:22)
[2018-10-13] MEDS: DiphenhydrAMINE HCL 50 MG/ML VIAL IV SCH (22:18)
[2018-10-14] MEDS: PIPERACILLIN/TAZOBACTAM 3.375 GM in DEXTROSE 5% 100 ML IV SCH ×3 (02:20→17:42)
[2018-10-14] MEDS ORDERED: VANCOMYCIN TROUGH ONE (07:30)
[2018-10-14] MEDS: LISINOPRIL 10 MG TAB PO SCH (07:48)
[2018-10-14] MEDS: CHOLECALCIFEROL 1,000 UNITS TAB PO SCH (07:48)
[2018-10-14] MEDS: ASPIRIN 81 MG ECTAB PO SCH (07:48)
[2018-10-14] MEDS: CLOPIDOGREL BISULFATE 75 MG TAB PO SCH (07:48)
[2018-10-14] MEDS: ATORVASTATIN 40 MG TAB PO SCH (07:48)
[2018-10-14] MEDS: GABAPENTIN 400 MG CAP PO SCH ×2 (07:49→20:12)
[2018-10-14 07:56] LABS: Basophils # (auto) 0.01 K/uL (0-0.2); Basophils % (auto) 0.1 %; Eosinophils # (auto) 0.05 K/uL (0-0.5); Eosinophils % (auto) 0.4 %; Hematocrit (blood only) 31.2 % (42-52); Hemoglobin 10.8 g/dL (14.0-18.0); Immature Granulocytes # (auto) 0.05 K/uL (0.00-0.02); Immature Granulocytes % (auto) 0.4 %; Lymphocytes # (auto) 1.41 K/uL (1.2-3.4); Lymphocytes % (auto) 11.4 %; Mean Corpuscular Hgb Conc 34.6 g/dL (32-36); Mean Corpuscular Volume 83.4 fL (80-100); Monocytes # (auto) 1.41 K/uL (0.11-0.59); Monocytes % (auto) 11.4 %; Neutrophils # (auto) 9.48 K/uL (1.4-6.5); Neutrophils % (auto) 76.3 %; Platelet Count 246 K/uL (130-400); RDW Coefficient of Variation 13.9 % (11.5-14.5); RDW Standard Deviation 42.7 fL (36.4-46.3); Red Blood Count 3.74 M/uL (4.7-6.1); White Blood Count 12.41 K/uL (4.8-10.8)
[2018-10-14 08:28] LABS: BUN Creatinine Ratio 11.2 (10-20); Calcium 9.9 mg/dl (8.5-10.1); Creatinine Clr Calc Pharmacy 83.4 ml/min; Est GFR (African American) 101.4; Est GFR (Non-African American) 87.5; Potassium 4.2 mmol/L (3.5-5.1)
--- NOTE | 2018-10-14 08:54 | Pharmacy Report ---
Pharmacy Abx Dose Progress Nt - Date of Service October 14, 2018 - Pharmacy Dosing Scope The patient is currently receiving the following antimicrobial agents per Pharmacy consult: Vancomycin 1000 mg IV every 12 hours Zosyn 3.375 grams IV Q8H extended interval infusion - Objective Vital Signs (Past 12hrs): Vital Signs Temp Pulse Resp BP Pulse Ox 10/14/18 07:44 37.1 C 78 18 153/56 H 100 10/13/18 23:05 37.2 C 88 16 166/77 H 99 Lab Results (24hrs): Laboratory Tests (24 Hours) 10/14/18 10/14/18 10/14/18 07:24 07:24 07:24 WBC 12.41 H Neut # (Auto) 9.48 H Creatinine 0.97 Est Cr Clr Drug Dosing 83.4 Vancomycin Trough 6.9 - Risk Factors for Resistance * Incarcerated * Immunocompromised - HIV * Significant PAD - Assessment & Plan Assessment 53 year old M receiving empiric vancomycin and Zosyn for treatment of gangrene of left foot secondary to severe PAD - Awaiting vascular intervention and possible BKA Day # 3 of antimicrobial therapy Plan Vancomycin IV * Trough level of 6.9 mcg/mL is subtherapeutic * Change to 1250 mg IV every 8 hours - starting with dose NOW * Goal trough level for bone/joint infection : 15- 20 mcg/mL, closer to 20mcg/ml * Trough level ordered for: 10/15/18 Piperacillin/tazobactam * 3.375 g bolus administered over 30 minutes, then 3.375 g IV extended infusion every 8 hours for CrCl greater than 20 mL/min Pharmacy will continue to follow and will adjust dose/frequency as necessary. Thank you.
[2018-10-14] MEDS: VANCOMYCIN HCL 1,250 MG in SODIUM CHLORIDE 0.9% 250 ML IV SCH ×3 (09:09→23:58)
--- NOTE | 2018-10-14 09:38 | Orthopedic Progress Note ---
Date of Service October 14, 2018 Assessment & Plan (1) Gangrene of left foot: 1. Left foot gangrene. 2. Gangrene of the 1st, 2nd, 3rd and 4th toes. 3. Severe peripheral vascular disease. 4. Ulceration of the midshaft tibia. 5. Human immunodeficiency virus positive. Will await dr. rea next procedure for further discussion orthopedic surgery. Most likely amputation, BKA. In good spirits today. . Subjective He notes no complaints today. Resting comfortably in bed. He is aware he will need some type of amputation Physical Exam Physical Exam: gangrene left foot. Midshaft tibial wound. Results & Data Vital Signs (Past 12 Hours) Vital Signs Temp Pulse Resp BP Pulse Ox 10/14/18 07:44 37.1 C 78 18 153/56 H 100 10/13/18 23:05 37.2 C 88 16 166/77 H 99
[2018-10-14] MEDS ORDERED: BISACODYL 5 MG TABEC PO ONE (10:45)
[2018-10-14] MEDS: DOCUSATE SODIUM 100 MG CAP PO SCH ×2 (11:31→20:12)
--- NOTE | 2018-10-14 15:02 | History & Physical Bridge Note ---
Date of Service October 14, 2018 History & Physical Bridge Note I have examined the patient, reviewed the History & Physical and in the interval since the performance of the History & Physical I have noted the following changes of clinical significance: no changes noted
[2018-10-14] MEDS: VANCOMYCIN HCL 1,000 MG in SODIUM CHLORIDE 0.9% 250 ML IV SCH (15:18)
--- NOTE | 2018-10-14 15:43 | Hospitalist Progress Note ---
Date of Service October 14, 2018 Assessment & Plan (1) Gangrene of left foot: - Due to severe PAD; presence of dry gangrene - No evidence of sepsis at this time; afebrile but continues with leukocytosis - Will continue Zosyn and Vancomycin at this time - Benadryl and pain management - mostly just complains of itching of foot - Orthopedics following - anticipating possible BKA depending of additional attempts at revascularization Present on Admission?: Yes (2) PAD (peripheral artery disease): - S/P angiography with iliac and SFA stenting on 10/11 - Question of SOCIAL MEDIA CONTENT SPECIALIST perf during procedure, S/P balloon inflation on 10/11 - now stable and no evidence of bleeding - Repeat arterial doppler of LLE on 10/12 with residual ostial SFA disease and compromised flow in profunda. ANGÉLICA < 0.30 - Dr. Vázquez discussed with [facility] and [facility] vascular surgery - utility of open revascularization felt to be limited - Planning on repeat angioplasty to SFA/profunda to try and optimize flow - ASA 81 mg daily, Plavix 75 mg daily, Atorvastatin 40 mg daily (3) Schizo affective schizophrenia: - Seems rather stable; has some pressured speech that can make understanding him difficult unless he slows his talking down - Not on any behavioral health meds at this time (4) HTN (hypertension): - Somewhat labile but acceptable and will monitor - Lisinopril 10 mg daily; could consider increase ACEI vs addition of BB if necessary Present on Admission?: Yes (5) Peripheral neuropathy: - Fairly well-controlled - Continue Gabapentin 800 mg BID; Hydrocodone PRN (6) HIV (human immunodeficiency virus infection): - No recent CD4 counts/viral load to assess - not currently on prophylactic medications - Continue Triumeq Present on Admission?: Yes (7) DVT prophylaxis: - No chemical prophylaxis at this time due to recent angioplasty with procedure and suspected SOCIAL MEDIA CONTENT SPECIALIST perforation and pending amputation Disposition: Await surgical intervention, anticipating several more days of stay; inmate Subjective Reports feeling well today. Only request is for a shower and something to help his bowels. Continues to have an itching sensation in the foot/toes but no pain. Reports the Benadryl is helping. Is hoping to only have to have his foot amputated; reports no fevers/chills Review of Systems Constitutional: no fever and no chills Ear, Nose, Mouth, Throat: no dry mouth and no sore throat Respiratory: no cough and no dyspnea Cardiovascular: no chest pain, no palpitations and no edema Gastrointestinal: + constipation; no abdominal pain, no nausea, no vomiting and no diarrhea/loose stools Genitourinary: no dysuria Musculoskeletal: no joint pain Integumentary: + non-healing lesions and + pruritus Physical Exam Constitutional: WD/WN, vitals as above ENMT: Ears: no hearing impairment Neck: normal visual inspection and trachea midline Respiratory: normal respiratory effort, lungs clear to auscultation Cardiovascular: Rate/Rhythm: regular rate and regular rhythm Heart Sounds: no murmur Gastrointestinal (Abdomen): Inspection/Auscultation: normal bowel sounds Percussion/Palpation: abdomen soft; abdomen nontender Musculoskeletal: Head/Neck/Chest: normocephalic and head atraumatic Skin: necrosis and atrophy/and L toes with blackening extending along medial aspect of L foot; hardened nodular lesion anterior/medial aspect of jacobs Neurologic: moves all extremities Psychiatric: Orientation: alert and oriented x 3 Speech: + pressured speech Results & Data Vital Signs (Past 12 Hours) Vital Signs Temp Pulse Resp BP Pulse Ox 10/14/18 07:44 37.1 C 78 18 153/56 H 100
[2018-10-14] MEDS: [UNRECOGNIZED DRUG - OTHER] PO SCH (20:12)
[2018-10-14] MEDS: DiphenhydrAMINE HCL 50 MG/ML VIAL IV SCH (20:13)
[2018-10-15] MEDS: HYDROCODONE/ACETAMOPHEN 5/325MG TAB PO PRN ×2 (00:04→21:19)
[2018-10-15] MEDS: PIPERACILLIN/TAZOBACTAM 3.375 GM in DEXTROSE 5% 100 ML IV SCH ×3 (02:05→17:02)
[2018-10-15 06:42] LABS: Creatinine Clr Calc Pharmacy 84.2 ml/min; Est GFR (African American) 102.7; Est GFR (Non-African American) 88.6
[2018-10-15] MEDS: CLOPIDOGREL BISULFATE 75 MG TAB PO SCH (08:06)
[2018-10-15] MEDS: ATORVASTATIN 40 MG TAB PO SCH (08:06)
[2018-10-15] MEDS: CHOLECALCIFEROL 1,000 UNITS TAB PO SCH (08:06)
[2018-10-15] MEDS: GABAPENTIN 400 MG CAP PO SCH ×2 (08:06→21:14)
[2018-10-15] MEDS: LISINOPRIL 10 MG TAB PO SCH (08:07)
[2018-10-15] MEDS: ASPIRIN 81 MG ECTAB PO SCH (08:07)
[2018-10-15] MEDS: DOCUSATE SODIUM 100 MG CAP PO SCH ×2 (08:13→21:13)
[2018-10-15] MEDS ORDERED: VANCOMYCIN TROUGH ONE (08:30)
[2018-10-15] MEDS: VANCOMYCIN HCL 1,250 MG in SODIUM CHLORIDE 0.9% 250 ML IV SCH (09:40)
--- NOTE | 2018-10-15 10:45 | Cardiology Progress Note ---
Date of Service October 15, 2018 Assessment & Plan (1) PAD (peripheral artery disease): 2. Nonhealing left lower extremity ulceration/gangrene 3. HIV/question HCV 4. Hypertension 5. Dyslipidemia 6. Neuropathy Post Iliac and SFA stenting on Wednesday 10/11 Repeat arterial duplex showed ostial SFA disease and compromised flow in profunda. ANGÉLICA <0.30. Plan for repeat left lower extremity angiogram today and attempted intervention to ostial SFA via brachial artery. Subjective Feeling well today. In good spirits. Pain and left lower extremity well controlled. No new complaints. Review of Systems Review of Systems: All systems reviewed & are unremarkable except as noted in HPI & below Physical Exam Physical Exam: General: Comfortable, no acute distress HEENT: Sclerae anicteric, mucous membranes moist Lungs: Clear to auscultation bilaterally, no rhonchi or wheezes Cardiac: Regular rate and rhythm, no murmurs. No JVD. Abdomen: Soft, nontender, nondistended, positive bowel sounds. Skin: No rashes or lesions. Neuro: Nonfocal Psych: Alert orient x3, normal affect and mood Extremities: Dry gangrene extending to forefoot/midfoot DP/PT pulses nonpalpable. Faint palpable popliteal pulse. Brachial pulses patent Results & Data Vital Signs (Past 12 Hours) Vital Signs Temp Pulse Resp BP Pulse Ox 10/15/18 06:46 36.9 C 78 18 137/75 98 10/15/18 02:09 120/71 10/14/18 23:00 37 C 103 H 18 168/88 H 99
[2018-10-15] MEDS ORDERED: NiCARDipine HCL INJ 2.5 MG/ML 10 ML AMP ONE (11:56)
[2018-10-15] MEDS ORDERED: IODIXANOL (VISIPAQUE) 270 MG/ML 150ML ONE (11:59)
[2018-10-15] MEDS ORDERED: NITROGLYCERIN/D5W 100MCG/ML 20ML SYR ONE (12:02)
--- NOTE | 2018-10-15 12:12 | Pre Anesthesia Assessment ---
Date of Service October 15, 2018 Pre Sedation Assessment Vital Signs Temp Pulse Resp BP Pulse Ox 10/15/18 11:23 37.5 C 75 16 137/80 98 10/15/18 06:46 36.9 C 78 18 137/75 98 10/15/18 02:09 120/71 10/14/18 23:00 37 C 103 H 18 168/88 H 99 10/14/18 15:44 37.7 C H 92 H 18 133/75 97 Cardiovascular RRR, no murmur, no edema Respiratory normal respiratory effort, lungs clear to auscultation Pre-Sedation Airway Assessment Smoking Status: Current some day smoker Hx Sleep Apnea: No Hx Difficult Intubation: No Short, Thick Neck: No Thyromental Distance: > or= 3.5 Finger Breadths Oral Cavity: + WNL Mallampati Class: I ASA: ASA3 NPO Status Date of Last Intake of Fluids: 10/09/18 Time of Last Intake of Fluids: 22:00 Date of Last Intake of Solid Food: 10/09/18 Time of Last Intake of Solid Foods: 22:00 Procedure Planning Contraindications for Sedation: none Current Medications Reviewed: Yes Notes The planned sedation has been discussed with the patient. Informed Consent was obtained. I have identified the patient, determined the appropriateness of sedation and have assessed the patient immediately prior to the procedure. All medicine(s) and interventions are by my order.
[2018-10-15] MEDS ORDERED: MIDAZOLAM HCL 1 MG/ML 2ML VIAL ONE ×2 (12:21→13:47)
[2018-10-15] MEDS ORDERED: HEPARIN SOD (PORCINE) 1000 UNIT/ML 10 ML VIAL ONE (12:21)
[2018-10-15] MEDS ORDERED: fentaNYL citrate 100 MCG/2 ML VIAL ONE ×2 (12:21→13:47)
[2018-10-15] MEDS ORDERED: LIDOCAINE HCL 1% 20 ML VIAL INJ ONE (14:03)
[2018-10-15] MEDS ORDERED: NITROGLYCERIN/D5W 100MCG/ML 20ML SYR IART ONE (14:03)
--- NOTE | 2018-10-15 14:16 | Post Anesthesia Assessment ---
Date of Service October 15, 2018 Post Sedation Assessment Vital Signs Temp Pulse Pulse Resp BP Pulse Ox 10/15/18 14:05 91 H 30 H 144/81 H 99 10/15/18 14:00 99 H 16 147/84 H 100 10/15/18 13:55 87 16 152/88 H 96 10/15/18 13:50 87 16 152/88 H 96 10/15/18 13:45 86 17 157/89 H 99 10/15/18 13:40 88 21 148/85 H 100 10/15/18 13:35 83 17 159/95 H 100 10/15/18 13:30 87 17 168/89 H 100 10/15/18 13:25 94 H 20 166/87 H 100 10/15/18 13:20 90 17 140/97 100 10/15/18 13:15 95 H 20 160/93 H 100 10/15/18 13:10 89 18 138/73 100 10/15/18 13:05 95 H 15 137/77 100 10/15/18 13:00 87 18 142/87 H 100 10/15/18 12:55 87 18 144/86 H 100 10/15/18 12:50 77 18 138/81 99 10/15/18 12:45 73 18 141/81 H 100 10/15/18 12:31 83 15 159/84 H 100 10/15/18 11:23 37.5 C 75 16 137/80 98 10/15/18 06:46 36.9 C 78 18 137/75 98 10/15/18 02:09 120/71 10/14/18 23:00 37 C 103 H 18 168/88 H 99 10/14/18 15:44 37.7 C H 92 H 18 133/75 97 Recovery Score Activity: Moves 4 extremities Respiration: Deep Breath/Cough Circulation: +/-20% PreAnes Value Consciousness: Fully Awake Oxygen Saturation: > 92% On Room Air Post Anesthesia Score: 10 Discharge Sedation Level of Care: Fast Track Phase II Post Sedation Plan On clinical assessment, the patient appears to have tolerated the sedation without complications. Patient is recovering as anticipated. Patient will continue to be monitored by nursing and may be discharged when sedation discharge criteria are met per below protocol. Upon Completions of procedure and additional 15 minutes continue every 5 minute vital signs and the P.A.R. score; then discharge to a Phase I or Fast Track to Phase II per the following guidelines: * Discharge Patient to appropriate Phase II area if PAR is 8 or greater or return to pre- procedure baseline. The post - procedure orders will be as directed. * If PAR score is less than 8 or not return to pre-procedure baseline then patient will follow Phase I monitoring till PAR is reached for Phase II. The Phase I may be done in procedure room or may call to secure a Phase I area. * If naloxone or flumazenil are used for reversal, hold in Phase I for continued monitoring from when last reversal dose was given for a minimum of 60 minutes or longer pending the nurse and/or physician discretion of patient condition before discharge to Phase II. Please call the Sedation Physician to re-evaluate and complete post-note for discharge to Phase II area. Do NOT discharge from procedure sedation or Phase 1 until post- sedation evaluation note is complete by procedure /sedation MD Sedation Discharge Instructions to be given to the patient at discharge to home.
--- NOTE | 2018-10-15 14:27 | Operative Report ---
Post Operative Report Pre & Post Diagnosis Operation Date: 10/15/18 12:00 Pre-Op Diagnosis: Peripheral Vascular Disease Post-Op Diagnosis: Peripheral Vascular Disease Procedure Operation Date: 10/15/18 12:00 Actual Procedures p Left Lower Extremity Angiogram, Percutaneous Transluminal Angioplasty left Iliac, Ultrasound Localization of Left Brachial artery, Percutaneous Trans luminal Angioplasty and Stent of Left Superficial Femoral Artery/Common Femoral Artery, Moderate Sedation 1245-(Left) - Thomas Vázquez MD Surgeon Fortino Vázquez MD Drafter Assistant Nisha Estimated Blood Loss 20 Findings Consistent with Post-Op Diagnosis Iliac stent patent, underexpanded Distal CALL CENTER DISPATCHER, ostial SFA hazy, calcified with severe stenosis Profunda occluded ostially. Fills via collaterals from iliacs SFA stents widely patent Distal SFA/popliteal with mild to moderate disease Three-vessel distal runoff to the foot. Specimens None Drains None Complications none Disposition Accompanied Patient To Recovery: No Disposition: PCU Description of Procedure Indication: Patient post left iliac stenting, and stenting with 2 overlapping stents to proximal to mid SFA 4 days ago. Repeat arterial duplex showed high- grade stenosis just proximal to SFA stent and persistently low ANGÉLICA. Procedure: Ultrasound-guided access of left brachial artery with placement of 5 Fr sheath With aid of a MPA catheter, glide advantage wire navigated into the left iliac and down into SFA. Left lower extremity angiography with multipurpose catheter placed into external iliac 90 cm destination sheath placed from brachial artery into left common iliac Left LAURY/EIA stent postdilated with 7.0 balloon Attempt made to wire into occluded profunda with a 0.14 command wire unsuccessful 6.0 x 80 mm Tigris stent placed from distal CALL CENTER DISPATCHER into SFA overlapping with prior stent Stents postdilated with 6.0 balloon Post procedure good angiographic result with widely patent iliac, SFA stents and three-vessel distal runoff. Summary: 1. Successful stenting of distal CALL CENTER DISPATCHER/SFA with 6 x 80 mm Tigris stent 2. Balloon post dilation of prior iliac stent Recommendations: Patient now with brisk in-line flow and three-vessel distal runoff to the ankle. Further amputation for distal gangrene for orthopedics. Continue DAPT with aspirin, clopidogrel I attest to the content of the Intraoperative Record and any orders documented therein. Any exceptions are noted below.
[2018-10-15] MEDS ORDERED: SODIUM CHLORIDE 0.9% 1000ML 1,000 ML IV SCH (14:30)
[2018-10-15] MEDS: DAPTOmycin 400 MG in SYRINGE 0 ML IV SCH (16:56)
--- NOTE | 2018-10-15 18:01 | Hospitalist Progress Note ---
Date of Service October 15, 2018 Assessment & Plan (1) Gangrene of left foot: - Due to severe PAD; presence of dry gangrene - No evidence of sepsis at this time; afebrile - Will continue Zosyn and changed to Daptomycin for further coverage - Benadryl and pain management - mostly just complains of itching of foot - Orthopedics following - anticipating possible BKA depending of additional attempts at revascularization (2) PAD (peripheral artery disease): - S/P angiography with iliac and SFA stenting on 10/11; Now S/P stent to distal BUSINESS OBJECTS ARCHITECT/SFA - Question of BUSINESS OBJECTS ARCHITECT perf during procedure S/P balloon inflation on 10/11 - now stable and no evidence of bleeding - Repeat arterial doppler of LLE on 10/12 with residual ostial SFA disease and compromised flow in profunda. ANGÉLICA < 0.30 - Dr. Vázquez discussed with Robert and [facility] vascular surgery - utility of open revascularization felt to be limited - ASA 81 mg daily, Plavix 75 mg daily, Atorvastatin 40 mg daily (3) Schizo affective schizophrenia: - Seems rather stable; has some pressured speech that can make understanding him difficult unless he slows his talking down - Not on any behavioral health meds at this time (4) HTN (hypertension): - Somewhat labile but acceptable and will monitor - Lisinopril 10 mg daily; could consider increase ACEI vs addition of BB if necessary (5) Peripheral neuropathy: - Fairly well-controlled - Continue Gabapentin 800 mg BID; Hydrocodone PRN (6) HIV (human immunodeficiency virus infection): - No recent CD4 counts/viral load to assess - not currently on prophylactic medications - Continue Triumeq (7) DVT prophylaxis: - No chemical prophylaxis at this time due to recent angioplasty with procedure and suspected BUSINESS OBJECTS ARCHITECT perforation and pending amputation Disposition: Await surgical intervention, anticipating several more days of stay pending amputation; inmate Subjective Reports feeling well today. In good spirits. Awaiting procedure during my visit. Reports moving his bowels yesterday. Currently denying pain other than some IV site discomfort and anticipating new site Review of Systems Constitutional: no fever and no chills Respiratory: no cough and no dyspnea Cardiovascular: no chest pain, no palpitations, no lightheadedness and no edema Gastrointestinal: no abdominal pain, no nausea, no vomiting, no constipation and no diarrhea/loose stools Genitourinary: no dysuria Musculoskeletal: no joint pain and no body aches Integumentary: + non-healing lesions Physical Exam Constitutional: WD/WN, vitals as above Eyes: + anicteric sclerae ENMT: Ears: no hearing impairment Neck: normal visual inspection and trachea midline Respiratory: normal respiratory effort, lungs clear to auscultation Cardiovascular: Rate/Rhythm: regular rate and regular rhythm Heart Sounds: no murmur Gastrointestinal (Abdomen): Inspection/Auscultation: normal bowel sounds Percussion/Palpation: abdomen soft; abdomen nontender Musculoskeletal: Head/Neck/Chest: normocephalic and head atraumatic Skin: blackened/necrotic tissue of the L toes and part of forefoot; cooler to touch and difficulty palpating dorsalis pedis pulse Neurologic: moves all extremities Psychiatric: Orientation: alert and oriented x 3 Speech: + pressured speech Results & Data Vital Signs (Past 12 Hours) Vital Signs Temp Pulse Pulse Resp BP Pulse Ox 10/15/18 16:32 37.0 C 90 18 121/68 100 10/15/18 15:37 18 127/75 99 10/15/18 15:17 36.4 C L 90 18 94/64 L 100 10/15/18 14:40 36.9 C 98 H 16 150/79 H 97 10/15/18 14:25 94 H 16 144/87 H 98 10/15/18 14:20 92 H 15 145/87 H 97 10/15/18 14:15 92 H 15 159/92 H 98 10/15/18 14:10 91 H 24 144/81 H 99 10/15/18 14:05 91 H 30 H 144/81 H 99 10/15/18 14:00 99 H 16 147/84 H 100 10/15/18 13:55 87 16 152/88 H 96 10/15/18 13:50 87 16 152/88 H 96 10/15/18 13:45 86 17 157/89 H 99 10/15/18 13:40 88 21 148/85 H 100 10/15/18 13:35 83 17 159/95 H 100 10/15/18 13:30 87 17 168/89 H 100 10/15/18 13:25 94 H 20 166/87 H 100 10/15/18 13:20 90 17 140/97 100 10/15/18 13:15 95 H 20 160/93 H 10/15/18 13:10 89 18 138/73 10/15/18 13:05 95 H 15 137/77 10/15/18 13:00 87 18 142/87 H 10/15/18 12:55 87 18 144/86 H 10/15/18 12:50 77 18 138/81 99 10/15/18 12:45 73 18 141/81 H 10/15/18 12:31 83 15 159/84 H 10/15/18 11:23 37.5 C 75 16 137/80 98 10/15/18 06:46 36.9 C 78 18 137/75 98
[2018-10-15] MEDS: [UNRECOGNIZED DRUG - OTHER] PO SCH (21:13)
[2018-10-15] MEDS: DiphenhydrAMINE HCL 50 MG/ML VIAL IV SCH ×2 (21:14→21:16)
[2018-10-16] MEDS: PIPERACILLIN/TAZOBACTAM 3.375 GM in DEXTROSE 5% 100 ML IV SCH ×3 (01:35→17:22)
[2018-10-16] MEDS: CLOPIDOGREL BISULFATE 75 MG TAB PO SCH (09:21)
[2018-10-16] MEDS: DOCUSATE SODIUM 100 MG CAP PO SCH ×2 (09:21→21:28)
[2018-10-16] MEDS: ATORVASTATIN 40 MG TAB PO SCH (09:21)
[2018-10-16] MEDS: GABAPENTIN 400 MG CAP PO SCH ×2 (09:21→21:29)
[2018-10-16] MEDS: CHOLECALCIFEROL 1,000 UNITS TAB PO SCH (09:21)
[2018-10-16] MEDS: ASPIRIN 81 MG ECTAB PO SCH (09:21)
[2018-10-16] MEDS: LISINOPRIL 10 MG TAB PO SCH (09:22)
--- NOTE | 2018-10-16 12:31 | Hospitalist Progress Note ---
Date of Service October 16, 2018 Assessment & Plan (1) Gangrene of left foot: - Due to severe PAD; presence of dry gangrene - No evidence of sepsis at this time; afebrile - Will continue Zosyn and Daptomycin for coverage pending surgical intervention - Benadryl (for itching complaints) and pain management - Orthopedics following - anticipating possible BKA but extent of amputation pending evaluations after revascularization (2) PAD (peripheral artery disease): - S/P angiography with iliac and SFA stenting on 10/11 and S/P stent to distal [facility]/SFA on 10/15 - Question of [facility] perf during procedure S/P balloon inflation on 10/11 - now stable and no evidence of bleeding - Repeat arterial doppler of LLE on 10/12 with residual ostial SFA disease and compromised flow in profunda. ANGÉLICA < 0.30 - Dr. Vázquez discussed with Robert and [facility] vascular surgery - utility of open revascularization felt to be limited - ASA 81 mg daily, Plavix 75 mg daily, Atorvastatin 40 mg daily (3) Schizo affective schizophrenia: - STABLE - Not on any behavioral health meds at this time (4) HTN (hypertension): - Somewhat labile but lately more controlled and will monitor - Lisinopril 10 mg daily; could consider increase ACEI vs addition of BB if necessary (5) Peripheral neuropathy: - Fairly well-controlled - Continue Gabapentin 800 mg BID; Hydrocodone PRN (6) HIV (human immunodeficiency virus infection): - No recent CD4 counts/viral load to assess - not currently on prophylactic medications - Continue Triumeq (7) DVT prophylaxis: - No chemical prophylaxis at this time due to recent angioplasty with procedure and suspected [facility] perforation and pending amputation Disposition: Await surgical intervention, anticipating several more days of stay pending amputation; inmate - rehab at D/C depending on penitentiary policy? Subjective Feeling well today. States he feels like his foot is warmer now that he had intervention done. Remains afebrile and without leukocytosis. Tolerating diet without issue. Verbalizes no complaints. Does express concern for how much of his foot he will need to lose and being able to walk afterwards Review of Systems Constitutional: no fever and no chills Respiratory: no cough and no dyspnea Cardiovascular: no chest pain and no palpitations Gastrointestinal: no abdominal pain, no nausea, no vomiting, no constipation and no diarrhea/loose stools Genitourinary: no dysuria Musculoskeletal: no body aches Integumentary: + non-healing lesions Physical Exam Constitutional: well developed, well nourished and + thin Eyes: + anicteric sclerae ENMT: Ears: no hearing impairment Neck: normal visual inspection and trachea midline Respiratory: normal respiratory effort, lungs clear to auscultation Cardiovascular: RRR, no murmur, no edema Gastrointestinal (Abdomen): Inspection/Auscultation: normal bowel sounds Percussion/Palpation: abdomen soft; abdomen nontender Musculoskeletal: Head/Neck/Chest: normocephalic and head atraumatic Skin: necrotic L toes that extends to forefoot on medial side; No erythema or new open lesions; chronic nodular lesion on anterior jacobs without drainage or opened areas Neurologic: moves all extremities Psychiatric: A+Ox3, euthymic affect Results & Data Vital Signs (Past 12 Hours) Vital Signs Temp Pulse Resp BP Pulse Ox 10/16/18 07:27 36.9 C 79 16 130/70 98
[2018-10-16] MEDS: DAPTOmycin 400 MG in SYRINGE 0 ML IV SCH (13:31)
--- NOTE | 2018-10-16 18:53 | Orthopedic Progress Note ---
Date of Service October 16, 2018 Assessment & Plan (1) Gangrene of left foot: 1. Left foot gangrene. 2. Gangrene of the 1st, 2nd, 3rd and 4th toes. 3. Severe peripheral vascular disease. 4. Ulceration of the midshaft tibia. 5. Human immunodeficiency virus positive. Angiography results discussed with Dr Allen. Plan for Left foot TMA this Sunday with Dr Allen. Subjective Pt lying in bed. Awake, alert. No new complaints. Pt asking about plans for his left foot. Discussed that with the improvement Dr Vázquez achieved wth the angioplasty, that BKA likely on hold for now. Planning for TMA instead. Physical Exam Physical Exam: Consistent with gangrene of the 1st through 4 toes. No foul odor at this time. No overt drainage noted. Results & Data Vital Signs (Past 12 Hours) Vital Signs Temp Pulse Resp BP Pulse Ox 10/16/18 15:32 37.1 C 92 H 16 127/73 97 10/16/18 07:27 36.9 C 79 16 130/70 98
[2018-10-16] MEDS: DiphenhydrAMINE HCL 50 MG/ML VIAL IV SCH (21:35)
[2018-10-16] MEDS: [UNRECOGNIZED DRUG - OTHER] PO SCH (21:52)
[2018-10-16] MEDS: POLYETHYLENE (MIRALAX) 17 GM PACK PO PRN (21:55)
--- NOTE | 2018-10-16 23:29 | Cardiology Progress Note ---
Date of Service October 16, 2018 Assessment & Plan (1) PAD (peripheral artery disease): 2. Nonhealing left lower extremity ulceration/gangrene 3. HIV/question HCV 4. Hypertension 5. Dyslipidemia 6. Neuropathy Patient post repeat endovascular intervention yesterday with stenting of distal BALING MACHINE TENDER/ostial SFA. Good angiographic result with in-line flow to tibials. Palpable DP pulse today. No apparent brachial artery access site complications. OK to proceed with planned amputation per orthopedics. From a vascular standpoint continue ASA/clopidogrel/statin and ROSELYN. Outpatient follow-up non-invasive vascular testing in 1 month. Subjective Feeling well today. No new complaints. LT brachial artery access site with mild tenderness/swelling. No distal numbness. Review of Systems Review of Systems: All systems reviewed & are unremarkable except as noted in HPI & below Physical Exam Constitutional: WD/WN, vitals as above no acute distress Eyes: + anicteric sclerae ENMT: Mallampati Class: I Respiratory: normal respiratory effort, lungs clear to auscultation Cardiovascular: RRR, no murmur, no edema Rate/Rhythm: regular rate Vessels: no JVD Gastrointestinal (Abdomen): Inspection/Auscultation: normal bowel sounds Percussion/Palpation: abdomen soft; abdomen nontender Skin: + lesion, + ulcer and + wound Neurologic: moves all extremities Psychiatric: Orientation: alert and oriented x 3 Results & Data Vital Signs (Past 12 Hours) Vital Signs Temp Pulse Resp BP Pulse Ox 10/16/18 15:32 37.1 C 92 H 16 127/73 97
[2018-10-17] MEDS: PIPERACILLIN/TAZOBACTAM 3.375 GM in DEXTROSE 5% 100 ML IV SCH ×3 (01:59→18:54)
[2018-10-17 08:15] LABS: Hematocrit (blood only) 30.8 % (42-52); Hemoglobin 10.2 g/dL (14.0-18.0); Mean Corpuscular Hgb Conc 33.1 g/dL (32-36); Mean Corpuscular Volume 83.9 fL (80-100); Mean Platelet Volume 8.9 fL (7.4-10.4); Platelet Count 287 K/uL (130-400); RDW Coefficient of Variation 13.9 % (11.5-14.5); RDW Standard Deviation 42.9 fL (36.4-46.3); Red Blood Count 3.67 M/uL (4.7-6.1); White Blood Count 11.44 K/uL (4.8-10.8)
[2018-10-17 08:46] LABS: BUN Creatinine Ratio 15.2 (10-20); Calcium 9.7 mg/dl (8.5-10.1); Creatinine Clr Calc Pharmacy 74.2 ml/min; Est GFR (African American) 88.1; Potassium 4.4 mmol/L (3.5-5.1)
[2018-10-17] MEDS: GABAPENTIN 400 MG CAP PO SCH ×2 (10:30→21:22)
[2018-10-17] MEDS: DOCUSATE SODIUM 100 MG CAP PO SCH ×2 (10:30→21:22)
[2018-10-17] MEDS: ATORVASTATIN 40 MG TAB PO SCH (10:30)
[2018-10-17] MEDS: ASPIRIN 81 MG ECTAB PO SCH (10:31)
[2018-10-17] MEDS: LISINOPRIL 10 MG TAB PO SCH (10:31)
[2018-10-17] MEDS: CLOPIDOGREL BISULFATE 75 MG TAB PO SCH (10:31)
[2018-10-17] MEDS: CHOLECALCIFEROL 1,000 UNITS TAB PO SCH (10:31)
[2018-10-17] MEDS: POLYETHYLENE (MIRALAX) 17 GM PACK PO PRN (10:37)
[2018-10-17] MEDS ORDERED: BISACODYL 10 MG SUPP PR STA (13:06)
[2018-10-17] MEDS: DAPTOmycin 400 MG in SYRINGE 0 ML IV SCH (13:30)
--- NOTE | 2018-10-17 17:59 | Hospitalist Progress Note ---
Date of Service October 17, 2018 Assessment & Plan (1) Gangrene of left foot: - Due to severe PAD; presence of dry gangrene - No evidence of sepsis at this time; afebrile - Will continue Zosyn and Daptomycin for coverage pending surgical intervention - Benadryl (for itching complaints) and pain management - Orthopedics following - anticipating TMA tomorrow (2) PAD (peripheral artery disease): - S/P angiography with iliac and SFA stenting on 10/11 and S/P stent to distal SITE CONTROLLER/SFA on 10/15 - Question of SITE CONTROLLER perf during procedure S/P balloon inflation on 10/11 - now stable and no evidence of bleeding - Repeat arterial doppler of LLE on 10/12 with residual ostial SFA disease and compromised flow in profunda. ANGÉLICA < 0.30 - Dr. Vázquez discussed with Robert and [facility] vascular surgery - utility of open revascularization felt to be limited - ASA 81 mg daily, Plavix 75 mg daily, Atorvastatin 40 mg daily (3) Schizo affective schizophrenia: - STABLE - Not on any behavioral health meds at this time (4) HTN (hypertension): - Somewhat labile but lately more controlled and will monitor - Lisinopril 10 mg daily; could consider increase ACEI vs addition of BB if necessary (5) Peripheral neuropathy: - Fairly well-controlled - Continue Gabapentin 800 mg BID; Hydrocodone PRN (6) HIV (human immunodeficiency virus infection): - No recent CD4 counts/viral load to assess - not currently on prophylactic medications - Continue Triumeq (7) DVT prophylaxis: - No chemical prophylaxis at this time due to recent angioplasty with procedure and suspected SITE CONTROLLER perforation and pending amputation Disposition: Await surgical intervention, anticipating several more days of stay pending amputation; inmate - rehab at D/C depending on longterm policy? Subjective Reports feeling well. Concerned about moving his bowels and states he has to strain commonly which results in some BRBPR. Tolerating diet without issue. Due for amputation tomorrow Review of Systems Constitutional: no fever and no chills Respiratory: no cough and no dyspnea Cardiovascular: no chest pain and no edema Gastrointestinal: + constipation; no abdominal pain, no nausea, no vomiting and no diarrhea/loose stools Genitourinary: no dysuria Integumentary: + non-healing lesions Physical Exam Constitutional: well developed, well nourished and + thin Eyes: + anicteric sclerae ENMT: Ears: no hearing impairment Neck: normal visual inspection and trachea midline Respiratory: normal respiratory effort, lungs clear to auscultation Cardiovascular: RRR, no murmur, no edema Gastrointestinal (Abdomen): Inspection/Auscultation: normal bowel sounds Percussion/Palpation: abdomen soft; abdomen nontender Musculoskeletal: Head/Neck/Chest: normocephalic and head atraumatic Skin: necrotic atrophied toes of the L foot. Necrosis extends into forefoot but unchanged from admission Neurologic: moves all extremities Psychiatric: A+Ox3, euthymic affect Speech: + pressured speech Results & Data Vital Signs (Past 12 Hours) Vital Signs Temp Pulse Resp BP Pulse Ox 10/17/18 15:20 37.2 C 86 16 143/70 H 98 10/17/18 08:12 36.8 C 73 16 136/72 98
[2018-10-17] MEDS: [UNRECOGNIZED DRUG - OTHER] PO SCH (21:22)
[2018-10-18] MEDS: PIPERACILLIN/TAZOBACTAM 3.375 GM in DEXTROSE 5% 100 ML IV SCH ×3 (02:33→20:39)
[2018-10-18] MEDS: DOCUSATE SODIUM 100 MG CAP PO SCH ×2 (08:59→20:56)
[2018-10-18] MEDS: GABAPENTIN 400 MG CAP PO SCH ×2 (08:59→20:55)
[2018-10-18] MEDS: ASPIRIN 81 MG ECTAB PO SCH (09:00)
[2018-10-18] MEDS: ATORVASTATIN 40 MG TAB PO SCH (09:00)
[2018-10-18] MEDS: LISINOPRIL 10 MG TAB PO SCH (09:00)
--- NOTE | 2018-10-18 10:07 | Anesthesiology Consultation ---
Date of Service October 18, 2018 Assessment & Plan (1) Encounter for pre-operative examination: Chart Review Chart Review: Acceptable Risk for Surgery and Patient NOT seen in Pre Admission Testing Consults Requested none medicine and cardiology are following the patient History Surgery Operation Date: 10/11/18 08:00 Proposed Procedures p Bilateral Lower Extremities Angiogram with Intervention - Thomas Vázquez MD Operation Date: 10/11/18 10:00 Proposed Procedures p Bilateral Lower Extremities Angiogram with Intervention - Thomas Vázquez MD Operation Date: 10/15/18 12:00 Proposed Procedures p Bilateral Lower Extremity Angiogram - Thomas Vázquez MD Operation Date: 10/18/18 13:10 Proposed Procedures p Left Transmetatarsal Amputation - Matt Allen DO Height/Weight Height: 6 ft 1 in Weight: 68.5 kg Allergies Allergy/AdvReac Type Severity Reaction Status Date / Time ibuprofen [From Motrin] AdvReac Unknown Verified 10/11/18 08:07 Medications Home Medications Medication Instructions Recorded Confirmed Last Taken abacavir 600 mg-dolutegravir 50 1 tab PO DAILY 09/17/18 10/11/18 10/10/18 20:45 mg-lamivudine 300 mg tablet amoxicillin 875 mg-potassium 1 tab PO BID 09/17/18 10/11/18 10/10/18 20:45 clavulanate 125 mg tablet aspirin 81 mg tablet,delayed 81 mg PO DAILY 09/17/18 10/11/18 10/10/18 08:30 release atorvastatin 10 mg tablet 10 mg PO DAILY 09/17/18 10/11/18 10/10/18 08:30 celecoxib 100 mg capsule 100 mg PO HS cap 09/17/18 10/11/18 10/10/18 20:45 cholecalciferol (vitamin D3) 5,000 5,000 units PO DAILY 09/17/18 10/11/18 10/10/18 20:45 unit capsule diphenhydramine 25 mg capsule 50 mg PO HS cap 09/17/18 10/11/18 10/09/18 21:00 emollient combination no.92 ea TOP ml 09/17/18 09/17/18 Unknown topical lotion gabapentin 400 mg capsule 800 mg PO BID 09/17/18 10/11/18 10/10/18 19:00 lisinopril 10 mg tablet 10 mg PO DAILY 09/17/18 10/11/18 10/10/18 20:00 Active Medications Generic Name Dose Route Start Last Admin Trade Name Freq PRN Reason Stop Dose Admin Acetaminophen 650 mg 10/11/18 15:05 10/13/18 03:19 Tylenol PO 11/10/18 15:04 650 mg Q4H PRN Administration Mild Pain, Temp>101, headache Hydrocodone Bitart/Acetaminophen 1 - 2 tab 10/11/18 15:05 10/15/18 21:19 [place] 5/325 PO 10/25/18 15:04 2 tab Q6H PRN Administration Moderate Pain Aspirin 81 mg 10/12/18 09:00 10/18/18 09:00 Ecotrin Ectab PO 11/11/18 08:59 81 mg QAM CAMERON Administration Atorvastatin Calcium 40 mg 10/12/18 09:00 10/18/18 09:00 Lipitor PO 11/11/18 08:59 40 mg DAILY CAMERON Administration Clopidogrel Bisulfate 75 mg 10/12/18 09:00 10/17/18 10:31 Plavix PO 11/11/18 08:59 75 mg QAM CAMERON Administration Docusate Sodium 100 mg 10/14/18 11:00 10/18/18 08:59 Colace PO 11/13/18 10:59 Not Given BID CAMERON Gabapentin 800 mg 10/11/18 21:00 10/18/18 08:59 Neurontin PO 11/10/18 20:59 800 mg BID CAMERON Administration Piperacillin Sod/Tazobactam 115 mls @ 28.75 mls/hr 10/13/18 02:00 10/18/18 06:33 Sod 3.375 gm/ Dextrose IV 11/24/18 01:59 Infused Q8H CAMERON Infusion Protocol Daptomycin 400 mg/ Syringe 8 mls @ 4 mls/min 10/15/18 14:00 10/17/18 13:30 IV 11/26/18 13:59 4 mls/min Q24H CAMERON Administration Protocol Lisinopril 10 mg 10/12/18 09:00 10/18/18 09:00 Zestril PO 11/11/18 08:59 10 mg DAILY CAMERON Administration Abacavir- 1 ea 10/13/18 21:00 10/17/18 21:22 Dolutegravir- PO 11/12/18 20:59 1 ea Lamivudine [Triumeq] HS CAMERON Administration : Non-Formulary Patient's Own Med Protocol Polyethylene Glycol 17 gm 10/14/18 10:25 10/17/18 10:37 Miralax Powder Packet PO 11/13/18 10:24 17 gm DAILY PRN Administration Constipation Vitamin D 5,000 units 10/12/18 09:00 10/17/18 10:31 Vitamin D3 PO 11/11/18 08:59 5,000 units DAILY CAMERON Administration NPO Date Last Intake of Fluids: 10/17/18 Time Last Intake of Fluids: 23:59 Last Intake of Fluids Comment: sips with medications Date Last Intake of Solids: 10/17/18 Time Last Intake of Solids: 23:59 Past Medical History Medical History Anemia HIV (human immunodeficiency virus infection) (Chronic) HTN (hypertension) (Chronic) Hyperlipidemia (Chronic) PVD (peripheral vascular disease) (Chronic) Schizo-affective schizophrenia, chronic condition (Chronic) Social History Smoking Status: Current some day smoker Hx Alcohol Use: No Hx Substance Use: No substance use type: does not use Physical Exam Vital Signs Last Vital Signs Temp 36.8 C 10/18/18 07:29 Pulse 77 10/18/18 07:29 Resp 18 10/18/18 07:29 BP 122/67 10/18/18 07:29 Pulse Ox 97 10/18/18 07:29 Testing Electrocardiogram Date: 10/18/18 Findings: + NSR @ (73) Other Testing Laboratory Tests 10/10/18 10/17/18 10/17/18 10:00 07:58 07:58 WBC 11.44 H Hgb 10.2 L Hct 30.8 L Plt Count 287 PT 12.6 H INR 1.2 H APTT 30.5 Sodium 135 L Potassium 4.4 Chloride 101 Carbon Dioxide 28 BUN 17 Creatinine 1.09 Glucose 101 H
[2018-10-18] MEDS: CLOPIDOGREL BISULFATE 75 MG TAB PO SCH (12:52)
[2018-10-18] MEDS: DAPTOmycin 400 MG in SYRINGE 0 ML IV SCH (13:31)
--- NOTE | 2018-10-18 14:13 | Hospitalist Progress Note ---
Date of Service October 18, 2018 Assessment & Plan (1) Gangrene of left foot: - Due to severe PAD; presence of dry gangrene - No evidence of sepsis at this time; remains afebrile - Will continue Zosyn and Daptomycin for coverage pending surgical intervention - Benadryl (for itching complaints) and pain management - Could consider ID consultation to discuss duration of antibiotic therapy - Orthopedics following - anticipating TMA today (2) PAD (peripheral artery disease): - S/P angiography with iliac and SFA stenting on 10/11 and S/P stent to distal PILOT FUEL ENGINEER/SFA on 10/15 - Question of PILOT FUEL ENGINEER perf during procedure S/P balloon inflation on 10/11 - now stable and no evidence of bleeding - Repeat arterial doppler of LLE on 10/12 with residual ostial SFA disease and compromised flow in profunda. ANGÉLICA < 0.30 - Dr. Vázquez discussed with Robert and [facility] vascular surgery - utility of open revascularization felt to be limited - ASA 81 mg daily, Plavix 75 mg daily, Atorvastatin 40 mg daily (3) Schizo affective schizophrenia: - STABLE - Not on any behavioral health meds at this time (4) HTN (hypertension): - Somewhat labile but lately more controlled and will monitor - Lisinopril 10 mg daily; could consider increase ACEI vs addition of BB if necessary (5) Peripheral neuropathy: - Fairly well-controlled - Continue Gabapentin 800 mg BID; Hydrocodone PRN (6) HIV (human immunodeficiency virus infection): - No recent CD4 counts/viral load to assess - not currently on prophylac tic medications - Continue Triumeq (7) DVT prophylaxis: - No chemical prophylaxis at this time due to recent angioplasty with procedure and suspected PILOT FUEL ENGINEER perforation and pending amputation Disposition: Await surgical intervention, anticipating several more days of stay pending amputation; inmate - rehab at D/C depending on skilled nursing policy? -- PT/OT pending surgery -- [facility] [employer] asks to be contacted to discuss discharges and to make sure they are accepted back to the facility - [phone] and ask for medical department Subjective Reports feeling well today. Awaiting surgical procedure. Tolerating diet. Moving his bowels. No issues with urination. Continues to remain afebrile. Review of Systems Constitutional: no fever and no chills Respiratory: no cough and no dyspnea Cardiovascular: no chest pain and no edema Gastrointestinal: no abdominal pain, no nausea, no vomiting, no constipation and no diarrhea/loose stools Genitourinary: no dysuria Integumentary: + non-healing lesions Physical Exam Constitutional: well developed, well nourished and + thin Eyes: + anicteric sclerae ENMT: Ears: no hearing impairment Neck: normal visual inspection and trachea midline Respiratory: normal respiratory effort, lungs clear to auscultation Cardiovascular: RRR, no murmur, no edema Gastrointestinal (Abdomen): Inspection/Auscultation: normal bowel sounds Percussion/Palpation: abdomen soft; abdomen nontender Musculoskeletal: Head/Neck/Chest: normocephalic and head atraumatic Skin: stable necrosis of the toes of the L foot that extends to the forefoot; viable tissue warm and weaker but present dorsalis pedis pulse Neurologic: moves all extremities Psychiatric: A+Ox3, euthymic affect Speech: + pressured speech Results & Data Vital Signs (Past 12 Hours) Vital Signs Temp Pulse Resp BP Pulse Ox 10/18/18 13:50 36.7 C 74 18 118/60 100 10/18/18 07:29 36.8 C 77 18 122/67 97
[2018-10-18] MEDS ORDERED: ROPIVACAINE 0.5% 5 MG/ML 30 ML VIAL ONE (14:36)
[2018-10-18] MEDS ORDERED: ePHEDrine sulfate 50 MG/ML AMP IV PRN (14:50)
[2018-10-18] MEDS ORDERED: ATROPINE SULFATE 0.1 MG/ML 10ML SYR IV PRN (14:50)
[2018-10-18] MEDS ORDERED: HYDROmorphone INJ 1 MG/ML SYRINGE IV PRN (14:50)
[2018-10-18] MEDS ORDERED: BUPIVACAINE 0.5 % 5 MG/1 ML MPF 30ML VIAL ONE (15:11)
[2018-10-18] MEDS ORDERED: BACITRACIN INJ 50,000 UNIT VIAL ONE (15:11)
[2018-10-18] MEDS ORDERED: LIDOCAINE HCL 2% 2 ML VIAL/AMP(20MG/ML) INFIL ONE (15:26)
[2018-10-18] MEDS ORDERED: PROPOFOL IV EMULSION 10 MG/ML 20 ML VIAL IV ONE (15:26)
[2018-10-18] MEDS ORDERED: MIDAZOLAM HCL 1 MG/ML 2ML VIAL ONE (15:26)
[2018-10-18] MEDS ORDERED: fentaNYL citrate 100 MCG/2 ML VIAL ONE ×3 (15:26→16:55)
--- NOTE | 2018-10-18 16:05 | History & Physical Bridge Note ---
Date of Service October 18, 2018 History & Physical Bridge Note I have examined the patient, reviewed the History & Physical and in the interval since the performance of the History & Physical I have noted the following changes of clinical significance: After revascularization procedure by Dr. Vázquez and after lengthy discussion with the patient, we will attempt a Chopart amputation as opposed to a more proximal, BKA amputation due to improved flow past the trifurcation. Transmetatarsal amputation is not an option due to the extensive soft tissue loss over the dorsal medial foot.
[2018-10-18] MEDS ORDERED: PHENYLEPHRINE HCL 10 MG/ML VIAL ONE (16:35)
[2018-10-18] MEDS ORDERED: HYDROmorphone INJ 2 MG/ML SYR/VIAL ONE (17:06)
--- NOTE | 2018-10-18 17:59 | Post Operative Brief Note ---
Immediate Post Op Note v1 Date of Surgery October 18, 2018 Pre & Post Diagnosis Operation Date: 10/11/18 08:00 <No data on this case meets the specified criteria> Operation Date: 10/11/18 10:00 Pre-Op Diagnosis: Gangrene left foot, necrosis first second and third toes, severe peripheral artery disease Post-Op Diagnosis: Gangrene left foot, necrosis first second and third toes, severe peripheral artery disease Operation Date: 10/15/18 12:00 Pre-Op Diagnosis: Peripheral Vascular Disease Post-Op Diagnosis: Peripheral Vascular Disease Operation Date: 10/18/18 13:10 Pre-Op Diagnosis: Gangrene left foot, necrosis first second and third toes, severe peripheral artery disease Post-Op Diagnosis: Gangrene left foot, necrosis first second and third toes, severe peripheral artery disease Procedure Operation Date: 10/11/18 08:00 <No data on this case meets the specified criteria> Operation Date: 10/11/18 10:00 Actual Procedures p Bilateral Lower Extremitiy Angiogram, Percutaneous Transluminal Angioplasty and Stenting of Left Superficial Femoral Artery, Moderate Sedation from 1136 - 1505.(Bilateral) - Thomas Vázquez MD Operation Date: 10/15/18 12:00 Actual Procedures p Left Lower Extremity Angiogram, Percutaneous Transluminal Angioplasty left Iliac, Ultrasound Localization of Left Brachial artery, Percutaneous Transluminal Angioplasty and Stent of Left Superficial Femoral Artery/Common Femoral Artery, Moderate Sedation [id number](Left) - Thomas Vázquez MD Operation Date: 10/18/18 13:10 Actual Procedures p Left foot Chopart Amputation(Left) - Matt Allen DO Surgeon Matt Allen DO Rail Operations Controller Javon Naranjo PA-C Estimated Blood Loss 20 Findings Consistent with Post-Op Diagnosis Specimens Left foot specimen Drains Hemovac Drain Anesthesia Type General Regional Complications none Disposition Accompanied Patient To Recovery: No Disposition: Recovery Room Overlapping Procedure I was present for: the critical portions of procedure. I was immediately available: during the entire case.
--- NOTE | 2018-10-18 18:55 | Anesthesiology Progress Note ---
Date of Service October 18, 2018 Anesthesia Post Procedure Vital Signs Vital Signs: Temp Pulse Pulse Resp BP BP Pulse Ox 10/18/18 18:40 36.4 C L 73 16 155/71 H 100 10/18/18 18:30 73 16 149/75 H 100 10/18/18 18:20 69 16 140/68 100 10/18/18 18:10 73 16 118/67 100 10/18/18 18:03 36.0 C L 83 16 143/73 H 100 10/18/18 13:50 36.7 C 74 18 118/60 100 10/18/18 07:29 36.8 C 77 18 122/67 97 10/17/18 23:22 37.1 C 87 16 131/69 98 Pain Intensity Left Foot: Pain Intensity: 10 Transfer of Care Handoff Completed per policy Notes Mental Status: alert / awake / arousable and participated in evaluation Patient Amnestic to Procedure: Yes Nausea / Vomiting: adequately controlled Pain: adequately controlled Airway Patency, RR, SpO2: stable & adequate BP & HR: stable & adequate Hydration State: stable & adequate Anesthetic Complications: no major complications apparent
[2018-10-18] MEDS ORDERED: MAGNESIUM HYDROXIDE SUSP 30 ML UDC PO PRN (19:02)
[2018-10-18] MEDS ORDERED: NALOXONE HCL 0.4 MG/1 ML VIAL/CARP IV PRN (19:02)
[2018-10-18] MEDS: CHOLECALCIFEROL 1,000 UNITS TAB PO SCH (19:23)
[2018-10-18] MEDS: SODIUM CHLORIDE 0.9% 1000ML 1,000 ML IV SCH (20:31)
[2018-10-18] MEDS: [UNRECOGNIZED DRUG - OTHER] PO SCH (20:54)
[2018-10-18] MEDS: HYDROCODONE/ACETAMOPHEN 5/325MG TAB PO PRN (22:45)
--- NOTE | 2018-10-18 23:39 | Operative Report ---
DATE OF OPERATION: 10/18/2018 PREOPERATIVE DIAGNOSES: 1. Left foot gangrene of the first, second and third toes. 2. Severe peripheral vascular disease, left lower extremity. SURGEON: Matt Allen DO CLINICAL SERVICES PROFESSIONAL: Javon Naranjo PA-C, who was present for patient positioning, sterile prep and drape, management of retractors and instruments. He was present through the critical portions of the case including wound closure, application of sterile dressing and transport of the patient to recovery. ANESTHESIA: General with ankle block. SPECIMENS: Left foot and toes. DRAINS: Hemovac x1. COMPLICATIONS: None. BLOOD LOSS: 10 mL. PERTINENT HISTORY: This is a 53-year-old gentleman who has a complicated medical history including HIV positive and peripheral artery disease. He developed some skin ulceration and wound necrosis over the last year and he is an incarcerated individual. He was then sent to clinic for evaluation. He was being staged for amputation of his first, second and third toes; however, he was then referred for vascular treatment to optimize his condition. Dr. Vázquez then performed a revascularization procedure for him noting the patient was still high risk for loss of lower limbs. The patient decided to proceed with Chopart amputation as indicated due to poor vascularity, severe peripheral vascular disease and advanced gangrene of the first, second and third toes extending to the first, second and third proximal ray. All potential risks, benefits, complications, alternatives, rehab, potential for incomplete relief of symptoms, need for further surgery, deep venous thrombosis, pulmonary embolism, , persistent pain, swelling, scarring, weakness, neurovascular injury, wound complications and need for further amputation were discussed with the patient. The patient decided to proceed with the procedure as indicated. PROCEDURE: The patient was taken to operative suite and placed supine on the operating room table. After reviewing consent and identification of proper operative site, the patient was anesthetized. Next, tourniquet could not be used on the left lower extremity due to recent revascularization procedure. Therefore, left lower extremity was then sterilely prepped and draped in usual fashion, elevated and partially exsanguinated with Esmarch bandage and Esmarch tourniquet was applied over sterile surgical towel at the level of the ankle. The pneumatic tourniquet was not used during the case. Next, the level of resection and zone of demarcation of tissue necrosis was noted along the midfoot extending plantar and dorsal to the level of the tarsometatarsal joints. Extensive necrosis and gangrene of the tissues was noted. The fixed necrotic deformities of the first, second and third toes appreciated. Next, a 15 blade scalpel was used to outline the zone of demarcation with an incision dorsally to the level of approximately the naviculocuneiform joints and extending distally between the fourth and third rays and then plantarward under the pad of the third toe and then extending more proximally through the mid foot to the zone of demarcation and tissue necrosis already noted. Next, the dorsal flap was then completed with incision deep to the skin, extensor and then down to the level of bone at the naviculocuneiform joints. At this point, this incision was then carried through the joint capsules of the first, second and third naviculocuneiform joints and extending to the calcaneocuboid joint through Chopart joint. Next, the soft tissue was then maintained in the plantar aspect of the flap where the bony components of the foot were then resected and then the amputation was completed and the amputation was completed through Chopart joint. This was passed off as specimen and then the flap was then revised and contoured with a 15 blade scalpel to the most optimal viable tissue present. Next, a decision was made to resect the portion of the talar head with a sagittal saw. Next, a rongeur was then used to smooth and contour the remainder of the talus. This was to provide a more balanced amputation for ambulation and for flap coverage. Hemostat was then used to place some of the flexors residually on stretch and then these were transected and allowed to retract within the foot to avoid the avascular structures being in the flap. Next, the wound was copiously irrigated with sterile normal saline with a pulsatile lavage and bacitracin. Next, the flap was then folded over the Chopart joint and then closed over a 10-German single lumen Hemovac drain with interrupted 3-0 nylon sutures and a combination of horizontal mattress, vertical mattress and simple sutures. Next, the foot and hindfoot was then injected with 0.5% Marcaine plain for postoperative pain control and then a sterile compressive bulky Elie Vázquez dressing was applied overwrapped with Gilles wrap with the foot held in neutral dorsiflexion. The tourniquet was released, the patient was awakened and taken to recovery in a stable condition. I attest to the content of the Intraoperative Record and any orders documented therein. Any exception s are noted below.
[2018-10-19] MEDS ORDERED: HYDROmorphone INJ 1 MG/ML SYRINGE IV STA (01:02)
[2018-10-19] MEDS: HYDROCODONE/ACETAMOPHEN 5/325MG TAB PO PRN ×2 (05:50→12:34)
[2018-10-19] MEDS: SODIUM CHLORIDE 0.9% 1000ML 1,000 ML IV SCH (06:25)
[2018-10-19 07:46] LABS: Hematocrit (blood only) 29.5 % (42-52); Hemoglobin 9.7 g/dL (14.0-18.0); Mean Corpuscular Hgb Conc 32.9 g/dL (32-36); Mean Corpuscular Volume 85.3 fL (80-100); Mean Platelet Volume 8.8 fL (7.4-10.4); Platelet Count 296 K/uL (130-400); RDW Coefficient of Variation 14.5 % (11.5-14.5); RDW Standard Deviation 44.6 fL (36.4-46.3); Red Blood Count 3.46 M/uL (4.7-6.1)
[2018-10-19 08:14] LABS: BUN Creatinine Ratio 16.2 (10-20); Calcium 9.3 mg/dl (8.5-10.1); Creatinine Clr Calc Pharmacy 90.9 ml/min; Est GFR (African American) 111.6; Est GFR (Non-African American) 96.3; Potassium 3.9 mmol/L (3.5-5.1)
--- NOTE | 2018-10-19 09:15 | Orthopedic Progress Note ---
Date of Service October 19, 2018 Assessment & Plan (1) Gangrene of left foot: POD#1 Left Chopart Amputation -Pain management -Antibiotics per medicine -DVT prophylaxis -PT/OT-NWB left LE Subjective POD#1 left foot amputation. Pain controlled currently, c/o feeling cold. No other complaints. Denies chest pain, sob, dizziness. Review of Systems Review of Systems: All systems reviewed & are unremarkable except as noted in HPI & below Physical Exam Physical Exam: Dressing c/d/i, no calf tenderness. Hemovac in place. Results & Data Vital Signs (Past 12 Hours) Vital Signs Temp Pulse Resp BP BP Pulse Ox 10/19/18 07:57 36.4 C L 83 19 126/70 98 10/19/18 06:29 96 10/19/18 03:32 36.5 C 81 16 120/65 99 10/18/18 22:32 36.4 C L 81 18 151/74 H 100
[2018-10-19] MEDS: DOCUSATE SODIUM 100 MG CAP PO SCH ×2 (09:17→21:27)
[2018-10-19] MEDS: LISINOPRIL 10 MG TAB PO SCH (09:17)
[2018-10-19] MEDS: GABAPENTIN 400 MG CAP PO SCH ×3 (09:18→21:27)
[2018-10-19] MEDS: CHOLECALCIFEROL 1,000 UNITS TAB PO SCH (09:18)
[2018-10-19] MEDS: ATORVASTATIN 40 MG TAB PO SCH (09:18)
[2018-10-19] MEDS: MULTIVITAMIN TAB PO SCH (09:18)
[2018-10-19] MEDS: ASPIRIN 81 MG ECTAB PO SCH (09:18)
[2018-10-19] MEDS: CLOPIDOGREL BISULFATE 75 MG TAB PO SCH (09:20)
--- NOTE | 2018-10-19 11:11 | Anesthesiology Progress Note ---
Date of Service October 19, 2018 Anesthesia Post Procedure Vital Signs Vital Signs: Temp Pulse Pulse Resp BP BP Pulse Ox 10/19/18 07:57 36.4 C L 83 19 126/70 98 10/19/18 06:29 96 10/19/18 03:32 36.5 C 81 16 120/65 99 10/18/18 22:32 36.4 C L 81 18 151/74 H 100 10/18/18 20:55 36.5 C 83 18 155/87 H 100 10/18/18 19:51 36.5 C 82 16 136/81 100 10/18/18 19:28 36.3 C L 83 18 129/77 100 10/18/18 18:55 36.2 C L 92 H 16 146/86 H 100 10/18/18 18:40 36.4 C L 73 16 155/71 H 100 10/18/18 18:30 73 16 149/75 H 100 10/18/18 18:20 69 16 140/68 100 10/18/18 18:10 73 16 118/67 100 10/18/18 18:03 36.0 C L 83 16 143/73 H 100 10/18/18 13:50 36.7 C 74 18 118/60 100 Pain Intensity Left Foot: Pain Intensity: 10 Transfer of Care Handoff Completed per policy Notes Mental Status: alert / awake / arousable Patient Amnestic to Procedure: Yes Nausea / Vomiting: adequately controlled Pain: adequately controlled Airway Patency, RR, SpO2: stable & adequate BP & HR: stable & adequate Hydration State: stable & adequate Anesthetic Complications: no major complications apparent Notes: POD #1. Doing well. VSS
--- NOTE | 2018-10-19 12:10 | Hospitalist Progress Note ---
Date of Service October 19, 2018 Assessment & Plan (1) Gangrene of left foot: - Due to severe PAD; presence of dry gangrene - No evidence of sepsis at this time; remains afebrile - Will continue Zosyn and Daptomycin for coverage pending surgical intervention - Benadryl (for itching complaints) and pain management - Could consider ID consultation to discuss duration of antibiotic therapy - Orthopedics following - anticipating TMA today (2) PAD (peripheral artery disease): - S/P angiography with iliac and SFA stenting on 10/11 and S/P stent to distal ROUTE INSPECTOR/SFA on 10/15 - Question of ROUTE INSPECTOR perf during procedure S/P balloon inflation on 10/11 - now stable and no evidence of bleeding - Repeat arterial doppler of LLE on 10/12 with residual ostial SFA disease and compromised flow in profunda. ANGÉLICA < 0.30 - Dr. Vázquez discussed with Robert and [facility] vascular surgery - utility of open revascularization felt to be limited - ASA 81 mg daily, Plavix 75 mg daily, Atorvastatin 40 mg daily (3) Schizo affective schizophrenia: - STABLE - Not on any behavioral health meds at this time (4) HTN (hypertension): - Somewhat labile but lately more controlled and will monitor - Lisinopril 10 mg daily; could consider increase ACEI vs addition of BB if necessary (5) Peripheral neuropathy: - Fairly well-controlled - Continue Gabapentin 800 mg BID; Hydrocodone PRN (6) HIV (human immunodeficiency virus infection): - No recent CD4 counts/viral load to assess - not currently on prophylac tic medications - Continue Triumeq (7) DVT prophylaxis: - No chemical prophylaxis at this time due to recent angioplasty with procedure and suspected ROUTE INSPECTOR perforation and pending amputation Disposition: Await surgical intervention, anticipating several more days of stay pending amputation; inmate - rehab at D/C depending on residential policy? -- PT/OT pending surgery -- [facility] [employer] asks to be contacted to discuss discharges and to make sure they are accepted back to the facility - [phone] and ask for medical department Results & Data Vital Signs (Past 12 Hours) Vital Signs Temp Pulse Resp BP Pulse Ox 10/19/18 07:57 36.4 C L 83 19 126/70 98 10/19/18 06:29 96 10/19/18 03:32 36.5 C 81 16 120/65 99
[2018-10-19] MEDS: DAPTOmycin 400 MG in SYRINGE 0 ML IV SCH (14:08)
[2018-10-19] MEDS ORDERED: MoRPHine SULFATE 4 MG/ML 1 ML CARP\\VIAL IV ONE (17:53)
--- NOTE | 2018-10-19 19:55 | Hospitalist Progress Note ---
Date of Service October 19, 2018 Assessment & Plan (1) Gangrene of left foot: Due to severe PAD. s/p TMA left foot - POD #1. Defer management to ortho. NWB to left leg. PT, OT evals. Pain control. Appreciate ortho and vascular/cardiology assistance. With respect to IV abx - only remains on IV daptomycin. IV zosyn has timed out after 1 week of Rx. Spoke with Dr Jewell who will consult tomorrow to assist with abx management. Present on Admission?: Yes (2) PAD (peripheral artery disease): S/P angiography with iliac and SFA stenting on 10/11. S/P stent to distal MANAGER DENTAL/SFA on 10/15. Both procedures by Dr Vázquez. Concern for MANAGER DENTAL perforation during procedure S/P balloon inflation on 10/11. No concern or issues since. Repeat arterial doppler of LLE on 10/12 with residual ostial SFA disease and compromised flow in profunda. ANGÉLICA < 0.30. Dr. Vázquez discussed with chelaer and [facility] vascular surgery - utility of open revascularization felt to be limited. Continue asa,plavix,statin. He will not have access to tobacco as of November 18 (smoking will be banned at all state prisons). Present on Admission?: Yes (3) Schizo affective schizophrenia: STABLE no psychotic symptoms at this time and appears to have insight into illness Present on Admission?: No (4) HTN (hypertension): Cont current meds (5) Peripheral neuropathy: Continue Gabapentin 800 mg BID. Having more pain in LLE -- add 400mg dose of gabapentin every afternoon. (6) HIV (human immunodeficiency virus infection): No recent CD4 counts. States he is followed by ID through [facility] via telemedicine at alf. States most recent viral load was undetectable. Continue Triumeq. Weight loss concerning for opportunistic infection (MAC, etc) but no obvious AIDS-defining infection on examination. This will need to be followed carefully. CBC w/o signs of lymphoma. (7) Severe protein-calorie malnutrition: add boost MVI (8) DVT prophylaxis: if stable through tomorrow then would add chemical means since he is limited in mobility. [facility] [employer] asks to be contacted to discuss discharges and to make sure they are accepted back to the facility - [phone] and ask for medical department Subjective patient with mild left foot pain only. reports weight loss of 30+ pounds in the last 6 months at the alf - he states because he "stopped eating fried food." denies chronic fevers/chills. denies dyspnea. Review of Systems Constitutional: no fever, no chills, no fatigue and no anorexia Respiratory: no cough and no dyspnea Cardiovascular: no chest pain Gastrointestinal: no abdominal pain, no nausea, no vomiting and no diarrhea/loose stools Physical Exam Constitutional: + thin and + cachectic; no acute distress ENMT: external ear and nose normal, oropharynx normal (no thrush) Respiratory: normal respiratory effort, lungs clear to auscultation Cardiovascular: RRR, no murmur, no edema Heart Sounds: normal S1 and normal S2 Vessels: no JVD Extremities: no edema right foot pulses 2+ Gastrointestinal (Abdomen): normal bowel sounds, soft, nontender, no hepatosplenomegaly Musculoskeletal: left leg in large dressings extending from just below left knee to the foot; drain in place Lymphatic: no cervical lymphadenopathy Results & Data Vital Signs (Past 12 Hours) Vital Signs Temp Pulse Resp BP BP Pulse Ox 10/19/18 15:01 36.9 C 82 16 128/74 98 10/19/18 07:57 36.4 C L 83 19 126/70 98 Laboratory Results BMP wnl except Na 134 (1) HTN (hypertension) Hypertension type: essential hypertension Qualified Code(s): I10 - Essential (primary) hypertension (2) Peripheral neuropathy Peripheral neuropathy type: polyneuropathy, unspecified Qualified Code(s): G62.9 - Polyneuropathy, unspecified (3) HIV (human immunodeficiency virus infection) HIV symptom status: asymptomatic Qualified Code(s): Z21 - Asymptomatic human immunodeficiency virus [HIV] infection status
[2018-10-19] MEDS: [UNRECOGNIZED DRUG - OTHER] PO SCH (21:26)
[2018-10-19] MEDS: OXYCODONE/ACETAMINOPHEN 5mg/325mg TAB PO PRN (22:43)
[2018-10-20 06:34] LABS: BUN Creatinine Ratio 12.6 (10-20); Calcium 9.4 mg/dl (8.5-10.1); Creatinine Clr Calc Pharmacy 90.9 ml/min; Est GFR (African American) 111.6; Est GFR (Non-African American) 96.3; Potassium 3.8 mmol/L (3.5-5.1)
[2018-10-20 06:39] LABS: Ferritin 674.5 ng/ml (8-388)
--- NOTE | 2018-10-20 07:14 | Infectious Disease Consult ---
Date of Consultation October 20, 2018 Assessment & Plan (1) Gangrene of left foot: would continue IV abx for now. If pt is to have bka, surgery would be curative and no additional abx suggested. If pt is to have additional debridement would suggest Augmentin 875mg po bid x 14 days post op. continue HAART, follow with HIV provider at [facility] as scheduled upon d/c from hospital. (2) HIV (human immunodeficiency virus infection): History of Present Illness Attending Physician: Chandra Gamboa DO pt admitted on 10/10 for gangrene left foot. underwent tma, had angiogram on 10/15. likely bka per ortho. afebrile since admission. on zosyn and dapto emperically, no micro to review. wbc initially 13, now 8. tolerating abx well. denies f/c. states some throbbing in foot, but pain well controlled, eating well. denies cp, sob, cough, no n/v/d abd pain. surgical dressing intact. ID consulted for abx management. Pt has h/o HIV on HAART at [facility], states tolerating meds well. Allergies Allergy/AdvReac Type Severity Reaction Status Date / Time ibuprofen [From Motrin] AdvReac Unknown Verified 10/11/18 08:07 Home Medications Home Medications Medication Instructions Recorded Confirmed Type abacavir 600 mg-dolutegravir 50 1 tab PO DAILY 09/17/18 10/11/18 History mg-lamivudine 300 mg tablet amoxicillin 875 mg-potassium 1 tab PO BID 09/17/18 10/11/18 History clavulanate 125 mg tablet aspirin 81 mg tablet,delayed 81 mg PO DAILY 09/17/18 10/11/18 History release atorvastatin 10 mg tablet 10 mg PO DAILY 09/17/18 10/11/18 History celecoxib 100 mg capsule 100 mg PO HS cap 09/17/18 10/11/18 History cholecalciferol (vitamin D3) 5,000 5,000 units PO DAILY 09/17/18 10/11/18 History unit capsule diphenhydramine 25 mg capsule 50 mg PO HS cap 09/17/18 10/11/18 History emollient combination no.92 ea TOP ml 09/17/18 09/17/18 History topical lotion gabapentin 400 mg capsule 800 mg PO BID 09/17/18 10/11/18 History lisinopril 10 mg tablet 10 mg PO DAILY 09/17/18 10/11/18 History Patient History Medical History Anemia HIV (human immunodeficiency virus infection) (Chronic) HTN (hypertension) (Chronic) Hyperlipidemia (Chronic) PVD (peripheral vascular disease) (Chronic) Schizo-affective schizophrenia, chronic condition (Chronic) Social History Preferred Language: Frisian Communication Ability: Effective Hearing Ability: Normal Car Washer Required: No Beliefs That Will Affect Care: None marital status: Current Living Situation: Other Current Living Situation Comment: correctional facility Other Information That Helps Us Care for You: No Feels Safe at Home: Yes Safety Concerns: Feels Safe At This Time Smoking Status: Current some day smoker Hx Alcohol Use: No Hx Substance Use: No Review of Systems Review of Systems: All systems reviewed & are unremarkable except as noted in HPI & below Physical Exam 2 Constitutional: WD/WN, vitals as above Eyes: PERRL, conjunctivae normal, anicteric sclerae ENMT: external ear and nose normal, oropharynx normal Neck: normal visual inspection Respiratory: normal respiratory effort, lungs clear to auscultation Cardiovascular: RRR, no murmur, no edema Gastrointestinal (Abdomen): normal bowel sounds, soft, nontender, no hepatosplenomegaly Musculoskeletal: no cyanosis or clubbing, extremities motor strength 5/5 Skin: no rashes, warm and dry Psychiatric: A+Ox3, euthymic affect Results & Data Vital Signs (Past 12 Hours) Vital Signs Temp Pulse Resp BP Pulse Ox 10/20/18 06:46 37.1 C 84 18 151/65 H 98 10/20/18 00:03 37 C 99 H 20 127/63 98
[2018-10-20 08:43] LABS: Folate (Folic Acid) 11.98 ng/ml (>5.38)
[2018-10-20] MEDS: OXYCODONE/ACETAMINOPHEN 5mg/325mg TAB PO PRN ×2 (08:50→16:39)
[2018-10-20] MEDS: DOCUSATE SODIUM 100 MG CAP PO SCH (08:50)
[2018-10-20] MEDS: ASPIRIN 81 MG ECTAB PO SCH (08:51)
[2018-10-20] MEDS: CHOLECALCIFEROL 1,000 UNITS TAB PO SCH (08:51)
[2018-10-20] MEDS: CLOPIDOGREL BISULFATE 75 MG TAB PO SCH (08:51)
[2018-10-20] MEDS: MULTIVITAMIN TAB PO SCH (08:51)
[2018-10-20] MEDS: ATORVASTATIN 40 MG TAB PO SCH (08:51)
[2018-10-20] MEDS: GABAPENTIN 400 MG CAP PO SCH ×3 (08:51→21:15)
[2018-10-20] MEDS: LISINOPRIL 10 MG TAB PO SCH (08:52)
--- NOTE | 2018-10-20 10:26 | Orthopedic Progress Note ---
Date of Service October 20, 2018 Assessment & Plan (1) Gangrene of left foot: POD#2 Left Chopart Amputation -Pain management -Antibiotics per medicine -DVT prophylaxis -PT/OT-NWB left LE -Dressing changed today, hemovac removed Subjective POD#2. Doing well overall, pain level improving. No other complaints. Dressing changed today. Physical Exam Physical Exam: Dressing removed. Incision c/d/i, Hemovac site intact drain removed with minimal drainage. Ulceration present mid shaft tibia region. Granulation tissue no overt drainage. Results & Data Vital Signs (Past 12 Hours) Vital Signs Temp Pulse Resp BP Pulse Ox 10/20/18 06:46 37.1 C 84 18 151/65 H 98 10/20/18 00:03 37 C 99 H 20 127/63 98
[2018-10-20] MEDS: DAPTOmycin 400 MG in SYRINGE 0 ML IV SCH (14:16)
[2018-10-20] MEDS ORDERED: HYDROmorphone INJ 1 MG/ML SYRINGE IV PRN (19:44)
[2018-10-20] MEDS ORDERED: SOD PHOSPHATE/SOD BIPHOSPHATE ENEMA 132 ML BTL PR PRN (19:44)
[2018-10-20] MEDS ORDERED: MAGNESIUM CITRATE 296 ML/BTL PO STA (19:44)
[2018-10-20] MEDS ORDERED: BISACODYL 10 MG SUPP PR PRN (19:44)
--- NOTE | 2018-10-20 19:49 | Hospitalist Progress Note ---
Date of Service October 20, 2018 Assessment & Plan (1) Gangrene of left foot: Due to severe PAD. s/p TMA left foot - POD #2 Defer management to ortho. NWB to left leg. PT, OT evals. Pain control not adequate--> add on IV dilaudid 1mg q4h prn severe pain, continue percocet prn. Appreciate ortho and vascular/cardiology assistance. With respect to IV abx - continues on IV daptomycin. Was on IV zosyn x 1 week which is now stopped ID Dr Jewell consulted and recommends continuing on IV Dapto while here and then convert to Augmentin 875mg po bid x 14 days from post-op period, but if ends up having BKA, would be curative and would not need any further abx. -follow CBC-leukocytosis now resolved (2) PAD (peripheral artery disease): S/P angiography with iliac and SFA stenting on 10/11. S/P stent to distal ELASTIC ATTACHER COVERSTITCH/SFA on 10/15. Both procedures by Dr Vázquez. Concern for ELASTIC ATTACHER COVERSTITCH perforation during procedure S/P balloon inflation on 10/11. No concern or issues since. Repeat arterial doppler of LLE on 10/12 with residual ostial SFA disease and compromised flow in profunda. ANGÉLICA < 0.30. Dr. Vázquez discussed with [facility] and [facility] vascular surgery - utility of open revascularization felt to be limited. Continue asa,plavix,statin. He will not have access to tobacco as of November 18 (smoking will be banned at all state prisons). (3) Schizo affective schizophrenia: no psychotic symptoms at this time and appears to have insight into illness-he is requesting a Psychiatry consult today due to worsening feelings of anxiety and depression given his current situation -Psych consult placed-appreciate any recommendations--> of note, he says he does not believe in taking medication for his mood, but is interested in getting better sleep--> says he has a chronic history of insomnia (4) HTN (hypertension): Controlled -Cont lisinopril 10mg daily (5) Peripheral neuropathy: Continue Gabapentin 800 mg BID and added 400mg dose of gabapentin every afternoon. (6) HIV (human immunodeficiency virus infection): No recent CD4 counts. States he is followed by ID through [facility] via telemedicine at [facility]. States most recent viral load was undetectable. Continue Triumeq. Weight loss concerning for opportunistic infection (MAC, etc) but no obvious AIDS-defining infection on examination. This will need to be followed carefully. CBC w/o signs of lymphoma. ID saw here and recommends f/u with previous ID doctor after discharge (7) Severe protein-calorie malnutrition: -continue added boost MVI (8) Constipation: Only one documented BM inover a week -add Magnesium citrate bottle x 1 now -add Bisacodul ME prn and Fleets enema prn if no result with Mag Citrate -add on senna to his docusate (9) DVT prophylaxis: Added Lovenox SQ today as is POD#2 from foot surgery and immobile [employer] asks to be contacted to discuss discharges and to make sure they are accepted back to the facility - [phone] and ask for medical department In d/w Ortho, will continue stay here until insured foot is healing well as there is concern with proper healing in the [facility] setting Subjective Pt reports having severe pain in the left foot. He received a one time dose of IV dilaudid yesterday AM but otehrwise is taking po percocet with minimal relief. Also c/o severe constipation and is requesting an enema. Denies CP or SOB. No abd pain. I discussed his case with Ortho today Review of Systems Review of Systems: All systems reviewed & are unremarkable except as noted in HPI & below Physical Exam Constitutional: + cachectic; no acute distress Eyes: PERRL, conjunctivae normal, anicteric sclerae + anicteric sclerae ENMT: external ear and nose normal, oropharynx normal Neck: trachea midline, no thyromegaly Respiratory: normal respiratory effort, lungs clear to auscultation Cardiovascular: RRR, no murmur, no edema Vessels: + dorsalis pedis pulses abnormal (On left) Gastrointestinal (Abdomen): normal bowel sounds, soft, nontender, no hepatosplenomegaly Musculoskeletal: Extremities: + extremities abnormal to inspection (left lower ext in dressing not removed) and no cyanosis Skin: no rashes, warm and dry Neurologic: moves all extremities and awake; no focal motor deficits Psychiatric: A+Ox3, euthymic affect Results & Data Vital Signs (Past 12 Hours) Vital Signs Temp Pulse Resp BP Pulse Ox 10/20/18 14:57 37 C 78 16 120/47 L 99 Laboratory Results 10/20/18 10/20/18 Range/Units 05:57 05:57 Sodium 136 (136-145) mmol/L Potassium 3.8 (3.5-5.1) mmol/L Chloride 103 (98-107) mmol/L Carbon Dioxide 29 (21-32) mmol/L Anion Gap 5.0 (3-11) BUN 11 (7-18) mg/dl Creatinine 0.89 (0.6-1.4) mg/dl Est Cr Clr Drug Dosing 90.9 ml/min Est GFR ( Amer) 111.6 Est GFR (Non-Af Amer) 96.3 BUN/Creatinine Ratio 12.6 (10-20) Glucose 93 (70-99) mg/dl Calcium 9.4 (8.5-10.1) mg/dl Iron 22 L (35-175) mcg/dl Transferrin 99 L (200-360) mg/dl Transferrin % Sat 15 L (20-50) % Ferritin 674.5 H (8-388) ng/ml Vitamin B12 565 (211-911) pg/ml Folate 11.98 (>5.38) ng/ml (1) HTN (hypertension) Hypertension type: essential hypertension Qualified Code(s): I10 - Essential (primary) hypertension (2) Peripheral neuropathy Peripheral neuropathy type: polyneuropathy, unspecified Qualified Code(s): G62.9 - Polyneuropathy, unspecified (3) HIV (human immunodeficiency virus infection) HIV symptom status: asymptomatic Qualified Code(s): Z21 - Asymptomatic human immunodeficiency virus [HIV] infection status
[2018-10-20] MEDS: ENOXAPARIN INJ 40 MG/0.4 ML SYR SQ SCH (21:13)
[2018-10-20] MEDS: [UNRECOGNIZED DRUG - OTHER] PO SCH (21:15)
[2018-10-20] MEDS: DOCUSATE SODIUM/SENNA 50/8.6MG TAB PO SCH (21:16)
[2018-10-21 06:24] LABS: Basophils # (auto) 0.03 K/uL (0-0.2); Basophils % (auto) 0.2 %; Eosinophils % (auto) 0.8 %; Hematocrit (blood only) 31.3 % (42-52); Hemoglobin 10.4 g/dL (14.0-18.0); Immature Granulocytes # (auto) 0.05 K/uL (0.00-0.02); Immature Granulocytes % (auto) 0.4 %; Lymphocytes # (auto) 2.21 K/uL (1.2-3.4); Lymphocytes % (auto) 16.8 %; Mean Corpuscular Hgb Conc 33.2 g/dL (32-36); Mean Corpuscular Volume 85.8 fL (80-100); Mean Platelet Volume 8.5 fL (7.4-10.4); Monocytes # (auto) 1.72 K/uL (0.11-0.59); Monocytes % (auto) 13.1 %; Neutrophils # (auto) 9.06 K/uL (1.4-6.5); Neutrophils % (auto) 68.7 %; Platelet Count 373 K/uL (130-400); RDW Coefficient of Variation 14.3 % (11.5-14.5); RDW Standard Deviation 44.9 fL (36.4-46.3); Red Blood Count 3.65 M/uL (4.7-6.1); White Blood Count 13.17 K/uL (4.8-10.8)
[2018-10-21 06:53] LABS: Calcium 9.5 mg/dl (8.5-10.1); Creatinine Clr Calc Pharmacy 82.5 ml/min; Est GFR (African American) 100.2; Est GFR (Non-African American) 86.4; Potassium 4.3 mmol/L (3.5-5.1)
--- NOTE | 2018-10-21 08:27 | Orthopedic Progress Note ---
Date of Service October 21, 2018 Assessment & Plan (1) Gangrene of left foot: POD#3 Left Chopart Amputation -Pain management -Antibiotics per medicine -DVT prophylaxis -PT/OT-NWB left LE -Dressing changed today -Recommend daily dressing changes. Adaptic cut to the size of the incision and gauze dressing. -Ortho to sign off. Follow up in Dr. Allen's clinic in 1 week from discharge for wound check. Discussed sutures being in place for ~5-6 weeks. Subjective POD#3. Doing well overall, pain level improving. No other complaints. Physical Exam Constitutional: WD/WN, vitals as above Musculoskeletal: Left foot: Well approximated Choparts amp flap. No erythema. Area is soft. Tender around the flap. Sutures intact. Stable anterior lower leg ulceration. No erythema or drainage. Psychiatric: A+Ox3, euthymic affect Results & Data Vital Signs (Past 12 Hours) Vital Signs Temp Pulse Resp BP Pulse Ox 10/21/18 07:07 36.9 C 88 16 152/79 H 98 10/20/18 23:45 36.9 C 84 19 152/75 H 99
[2018-10-21] MEDS: OXYCODONE/ACETAMINOPHEN 5mg/325mg TAB PO PRN ×3 (08:37→21:13)
[2018-10-21] MEDS: CLOPIDOGREL BISULFATE 75 MG TAB PO SCH (08:38)
[2018-10-21] MEDS: CHOLECALCIFEROL 1,000 UNITS TAB PO SCH (08:38)
[2018-10-21] MEDS: ATORVASTATIN 40 MG TAB PO SCH (08:38)
[2018-10-21] MEDS: ASPIRIN 81 MG ECTAB PO SCH (08:39)
[2018-10-21] MEDS: LISINOPRIL 10 MG TAB PO SCH (08:39)
[2018-10-21] MEDS: GABAPENTIN 400 MG CAP PO SCH ×3 (08:39→21:07)
[2018-10-21] MEDS: MULTIVITAMIN TAB PO SCH (08:40)
--- NOTE | 2018-10-21 12:04 | Psychiatric Consultation ---
Date of Consultation October 21, 2018 Impression / Recommendations (1) Irritable: Patient is a 53 year old male with a complex past medical history. According to records it shows that he has a history of schizoaffective disorder. He notes he has been on 4 or 5 different medicines while being imprisoned but has not taken medication for 6-12 months. He notes his mood and symptoms have been good without medication. Over the past days while in the hospital he has been mistreated by the environmental protection officer which has caused him to be anxious and have some difficulty falling asleep. The patient notes these symptoms have been improving since their are now different correction officers in his room. He likely does not need to be started on any psychiatric medications at this time. I have spoke to the corrections officers who have told me that the other environmental protection officer will not be coming back to look after the patient. Below are our following recommendations. 1) Can use 50mg of hydroxyzine prn for insomnia 2) Ensure previous environmental protection officer does not return to patients care 3) Monitor patient for worsening symptoms of anxiety, depression or psychotic symptoms Don't hesitate to contact the psychiatric team for further recommendations or questions Psych History Chief Complaint "I was feeling anxious because of the CO (environmental protection officer)". History of Present Illness Mr. Iqbal is a 53 year old prisoner at [facility] with a PMH of HIV, HTN, HLD, peripheral neuropathy, PAD and left lower extremity ulceration that we were asked to see due to difficulty with sleeping and anxiety. When speaking to the patient at the bedside this morning he notes that since being admitted to the hospital he was feeling very anxious and restless due to the fact that a corrections office kept calling him a "nigger" and the environmental protection officer would not un-cuff him to use the toilet. This environmental protection officer was in the patients room on October 15, and October 17. Since then the patient has started feeling less anxious and but he is nervous that the environmental protection officer will come back and disrespect him again. The patient also notes that sometimes he has trouble falling asleep but has been able to once tired. He says prior to the officer disrespecting him he was a "peaceful" man. He denies any decreased mood, worsening anxiety, difficulty concentrating, racing thoughts, grandiose ideas, pressured speech, hopelessness, or panic symptoms. He notes he has been in custodial for 11 years. He has been on 4-5 different medications throughout his time at custodial for schziaffective disorder. He has been on risperidal, seroquel, zyprexa, but he can't remember the other ones. He notes he stopped he stopped his medication last year as he had been having side effects with the main one feeling that the room was spinning. Since then he notes his mental health has been good and he has not needed any further medications. With regards to his past psychiatric history he notes that prior to being imprisoned he would take xanax occasionally but had never been on any other medication. Prior to custodial he saw a therapist in [place] at a mental health centre. He notes he did try hanging himself in 1983 after his mother and was found but his son who saved him but he never went to a facility or hospital at the time. He does have a history of weapon use according to online criminal charges. He has over 20 criminal charges according to online records. He notes he has a family history of psychosis in his sister but denies any family hx of suicide attempts. He currently does smoke cigarrettes but not everyday. He has a history of drug abuse before custodial. He notes he used to smoke marijuana, snort cocaine, take mushrooms, take different stimulant pills but denies any meth or heroine use. He notes he grew up in [place] and moved to [place] when he was younger. He has 24 siblings and 14 children of his own. He has never been cayla ied. He does have HIV and sees a doctor in [place] via telemedicine. 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 Allergies Allergy/AdvReac Type Severity Reaction Status Date / Time ibuprofen [From Motrin] AdvReac Unknown Verified 10/11/18 08:07 Home Medications Home Medications Medication Instructions Recorded Confirmed Type abacavir 600 mg-dolutegravir 50 1 tab PO DAILY 09/17/18 10/11/18 History mg-lamivudine 300 mg tablet amoxicillin 875 mg-potassium 1 tab PO BID 09/17/18 10/11/18 History clavulanate 125 mg tablet aspirin 81 mg tablet,delayed 81 mg PO DAILY 09/17/18 10/11/18 History release atorvastatin 10 mg tablet 10 mg PO DAILY 09/17/18 10/11/18 History celecoxib 100 mg capsule 100 mg PO HS cap 09/17/18 10/11/18 History cholecalciferol (vitamin D3) 5,000 5,000 units PO DAILY 09/17/18 10/11/18 History unit capsule diphenhydramine 25 mg capsule 50 mg PO HS cap 09/17/18 10/11/18 History emollient combination no.92 ea TOP ml 09/17/18 09/17/18 History topical lotion gabapentin 400 mg capsule 800 mg PO BID 09/17/18 10/11/18 History lisinopril 10 mg tablet 10 mg PO DAILY 09/17/18 10/11/18 History Personal History Beliefs That Will Affect Care: None Patient History Medical History Anemia HIV (human immunodeficiency virus infection) (Chronic) HTN (hypertension) (Chronic) Hyperlipidemia (Chronic) PVD (peripheral vascular disease) (Chronic) Schizo-affective schizophrenia, chronic condition (Chronic) Social History Preferred Language: Yakut Communication Ability: Effective Hearing Ability: Normal Technician Automatic Required: No Beliefs That Will Affect Care: None marital status: Current Living Situation: Other Current Living Situation Comment: correctional facility Other Information That Helps Us Care for You: No Feels Safe at Home: Yes Safety Concerns: Feels Safe At This Time Smoking Status: Current some day smoker Hx Alcohol Use: No Hx Substance Use: No Physical Exam Mental Examination: Appearance: Disheveled Eye Contact: Direct Eye Contact Motor Behavior: Unremarkable Speech: Normal Mood: Euthymic and Sad Affect: Appropriate Thought Process: Intact Thought Content: Intact Hallucinations: None Insight: Good Judgement: Good Vital Signs (Past 24 Hours): Last Vital Signs Temp 36.9 C 10/21/18 07:07 Pulse 88 10/21/18 07:07 Resp 16 10/21/18 07:07 BP 152/79 H 10/21/18 07:07 Pulse Ox 98 10/21/18 07:07 Review of Systems All systems reviewed & are unremarkable except as noted in HPI & below Results & Data Medications Administered Acetaminophen (Tylenol) 650 mg PO Q4H PRN PRN Reason: Mild Pain, Temp>101, headache Stop: 11/10/18 15:04 Last Admin: 10/13/18 03:19 Dose: 650 mg Documented by: [id number] Aspirin (Ecotrin Ectab) 81 mg PO QAM [facility] Stop: 11/11/18 08:59 Last Admin: 10/21/18 08:39 Dose: 81 mg Documented by: [id number] Admin: 10/20/18 08:51 Dose: 81 mg Documented by: [id number] Admin: 10/19/18 09:18 Dose: 81 mg Documented by: [id number] Admin: 10/18/18 09:00 Dose: 81 mg Documented by: [id number] Admin: 10/17/18 10:31 Dose: 81 mg Documented by: [id number] Admin: 10/16/18 09:21 Dose: 81 mg Documented by: [id number] Admin: 10/15/18 08:07 Dose: 81 mg Documented by: [id number] Admin: 10/14/18 07:48 Dose: 81 mg Documented by: [id number] Admin: 10/13/18 07:29 Dose: 81 mg Documented by: [id number] Admin: 10/12/18 08:25 Dose: 81 mg Documented by: [id number] Atorvastatin Calcium (Lipitor) 40 mg PO DAILY [facility] Stop: 11/11/18 08:59 Last Admin: 10/21/18 08:38 Dose: 40 mg Documented by: [id number] Admin: 10/20/18 08:51 Dose: 40 mg Documented by: [id number] Admin: 10/19/18 09:18 Dose: 40 mg Documented by: [id number] Admin: 10/18/18 09:00 Dose: 40 mg Documented by: [id number] Admin: 10/17/18 10:30 Dose: 40 mg Documented by: [id number] Admin: 10/16/18 09:21 Dose: 40 mg Documented by: [id number] Admin: 10/15/18 08:06 Dose: 40 mg Documented by: [id number] Admin: 10/14/18 07:48 Dose: 40 mg Documented by: [id number] Admin: 10/13/18 07:28 Dose: 40 mg Documented by: [id number] Admin: 10/12/18 08:24 Dose: 40 mg Documented by: [id number] Clopidogrel Bisulfate (Plavix) 75 mg PO QAM [facility] Stop: 11/11/18 08:59 Last Admin: 10/21/18 08:38 Dose: 75 mg Documented by: [id number] Admin: 10/20/18 08:51 Dose: 75 mg Documented by: [id number] Admin: 10/19/18 09:20 Dose: 75 mg Documented by: [id number] Admin: 10/18/18 12:52 Dose: 75 mg Documented by: [id number] Admin: 10/17/18 10:31 Dose: 75 mg Documented by: [id number] Admin: 10/16/18 09:21 Dose: 75 mg Documented by: [id number] Admin: 10/15/18 08:06 Dose: 75 mg Documented by: [id number] Admin: 10/14/18 07:48 Dose: 75 mg Documented by: [id number] Admin: 10/13/18 07:28 Dose: 75 mg Documented by: [id number] Admin: 10/11/18 16:38 Dose: 75 mg Documented by: [id number] Diphenhydramine HCl (Benadryl Capsule) 50 mg PO Q8 PRN PRN Reason: itch Stop: 11/11/18 21:59 Last Admin: 10/20/18 00:27 Dose: 50 mg Documented by: [id number] Enoxaparin Sodium (Lovenox) 40 mg SQ Q24H [facility] Stop: 11/19/18 19:59 Last Admin: 10/20/18 21:13 Dose: 40 mg Documented by: [id number] Gabapentin (Neurontin) 800 mg PO BID [facility] Stop: 11/10/18 20:59 Last Admin: 10/21/18 08:39 Dose: 800 mg Documented by: [id number] Admin: 10/20/18 21:15 Dose: 800 mg Documented by: [id number] Admin: 10/20/18 08:51 Dose: 800 mg Documented by: [id number] Admin: 10/19/18 21:27 Dose: 800 mg Documented by: [id number] Admin: 10/19/18 09:18 Dose: 800 mg Documented by: [id number] Admin: 10/18/18 20:55 Dose: 800 mg Documented by: [id number] Admin: 10/18/18 08:59 Dose: 800 mg Documented by: [id number] Admin: 10/17/18 21:22 Dose: 800 mg Documented by: [id number] Admin: 10/17/18 10:30 Dose: 800 mg Documented by: [id number] Admin: 10/16/18 21:29 Dose: 800 mg Documented by: [id number] Admin: 10/16/18 09:21 Dose: 800 mg Documented by: [id number] Admin: 10/15/18 21:14 Dose: 800 mg Documented by: [id number] Admin: 10/15/18 08:06 Dose: 800 mg Documented by: [id number] Admin: 10/14/18 20:12 Dose: 800 mg Documented by: [id number] Admin: 10/14/18 07:49 Dose: 800 mg Documented by: [id number] Admin: 10/13/18 21:05 Dose: 800 mg Documented by: [id number] Admin: 10/13/18 07:28 Dose: 800 mg Documented by: [id number] Admin: 10/12/18 20:45 Dose: 800 mg Documented by: [id number] Admin: 10/12/18 08:23 Dose: 800 mg Documented by: [id number] Admin: 10/11/18 20:25 Dose: 800 mg Documented by: [id number] Gabapentin (Neurontin) 400 mg PO DAILY@1600 [facility] Stop: 11/18/18 15:59 Last Admin: 10/20/18 16:39 Dose: 400 mg Documented by: [id number] Admin: 10/19/18 15:37 Dose: 400 mg Documented by: [id number] Daptomycin 400 mg/ Syringe 8 mls @ 4 mls/min IV Q24H [facility]; Protocol Stop: 11/26/18 13:59 Last Admin: 10/20/18 14:16 Dose: 4 mls/min Documented by: [id number] Admin: 10/19/18 14:08 Dose: 4 mls/min Documented by: [id number] Admin: 10/18/18 13:31 Dose: 4 mls/min Documented by: [id number] Admin: 10/17/18 13:30 Dose: 4 mls/min Documented by: [id number] Admin: 10/16/18 13:31 Dose: 4 mls/min Documented by: [id number] Admin: 10/15/18 16:56 Dose: 4 mls/min Documented by: [id number] Lisinopril (Zestril) 10 mg PO DAILY [facility] Stop: 11/11/18 08:59 Last Admin: 10/21/18 08:39 Dose: 10 mg Documented by: [id number] Admin: 10/20/18 08:52 Dose: 10 mg Documented by: [id number] Admin: 10/19/18 09:17 Dose: 10 mg Documented by: [id number] Admin: 10/18/18 09:00 Dose: 10 mg Documented by: [id number] Admin: 10/17/18 10:31 Dose: 10 mg Documented by: [id number] Admin: 10/16/18 09:22 Dose: 10 mg Documented by: [id number] Admin: 10/15/18 08:07 Dose: 10 mg Documented by: [id number] Admin: 10/14/18 07:48 Dose: 10 mg Documented by: [id number] Admin: 10/13/18 07:28 Dose: 10 mg Documented by: [id number] Admin: 10/12/18 08:23 Dose: 10 mg Documented by: [id number] Multivitamins (Multivitamin Tab) 1 tab PO QAM [facility] Stop: 11/18/18 08:59 Last Admin: 10/21/18 08:40 Dose: 1 tab Documented by: [id number] Admin: 10/20/18 08:51 Dose: 1 tab Documented by: [id number] Admin: 10/19/18 09:18 Dose: 1 tab Documented by: [id number] Abacavir- Dolutegravir- Lamivudine [Triumeq] : Non-Formulary Patient's Own Med 1 ea PO [facility]; Protocol Stop: 11/12/18 20:59 Last Admin: 10/20/18 21:15 Dose: 1 ea Documented by: [id number] Admin: 10/19/18 21:26 Dose: 1 ea Documented by: [id number] Admin: 10/18/18 20:54 Dose: 1 ea Documented by: [id number] Admin: 10/17/18 21:22 Dose: 1 ea Documented by: [id number] Admin: 10/16/18 21:52 Dose: 1 tab Documented by: [id number] Admin: 10/15/18 21:13 Dose: 1 tab Documented by: [id number] Admin: 10/14/18 20:12 Dose: 1 tab Documented by: [id number] Admin: 10/13/18 21:22 Dose: 1 tab Documented by: [id number] Oxycodone/Acetaminophen (Percocet 5mg/325mg) 1 - 2 tab PO Q4H PRN PRN Reason: Pain Stop: 11/02/18 17:49 Last Admin: 10/21/18 08:37 Dose: 2 tab Documented by: [id number] Admin: 10/20/18 16:39 Dose: 2 tab Documented by: [id number] Admin: 10/20/18 08:50 Dose: 2 tab Documented by: [id number] Admin: 10/19/18 22:43 Dose: 2 tab Documented by: [id number] Polyethylene Glycol (Miralax Powder Packet) 17 gm PO DAILY PRN PRN Reason: Constipation Stop: 11/13/18 10:24 Last Admin: 10/17/18 10:37 Dose: 17 gm Documented by: [id number] Admin: 10/16/18 21:55 Dose: 17 gm Documented by: [id number] Senna/Docusate Sodium (Senokot S) 2 tab PO HS [facility] Stop: 11/19/18 20:59 Last Admin: 10/20/18 21:16 Dose: 2 tab Documented by: [id number] Vitamin D (Vitamin D3) 5,000 units PO DAILY [facility] Stop: 11/11/18 08:59 Last Admin: 10/21/18 08:38 Dose: 5,000 units Documented by: [id number] Admin: 10/20/18 08:51 Dose: 5,000 units Documented by: [id number] Admin: 10/19/18 09:18 Dose: 5,000 units Documented by: [id number] Admin: 10/18/18 19:23 Dose: Not Given Documented by: [id number] Admin: 10/17/18 10:31 Dose: 5,000 units Documented by: [id number] Admin: 10/16/18 09:21 Dose: 5,000 units Documented by: [id number] Admin: 10/15/18 08:06 Dose: 5,000 units Documented by: [id number] Admin: 10/14/18 07:48 Dose: 5,000 units Documented by: [id number] Admin: 10/13/18 07:28 Dose: 5,000 units Documented by: [id number] Admin: 10/12/18 08:24 Dose: 5,000 units Documented by: [id number]
[2018-10-21] MEDS: DAPTOmycin 400 MG in SYRINGE 0 ML IV SCH (13:53)
[2018-10-21] MEDS: ENOXAPARIN INJ 40 MG/0.4 ML SYR SQ SCH (17:13)
[2018-10-21] MEDS: DOCUSATE SODIUM/SENNA 50/8.6MG TAB PO SCH (21:08)
--- NOTE | 2018-10-21 21:22 | Hospitalist Progress Note ---
Date of Service October 21, 2018 Assessment & Plan (1) Gangrene of left foot: Due to severe PAD. s/p TMA left foot - POD #3 Defer management to ortho. They recommend daily dressing changes using Adaptic, ABD pad, gauze, and Gilles wrap-orthopedics has signed off at this point and says he is stable for discharge back to skilled nursing NWB to left leg. PT, OT evals. Pain control improved-he will not be able to take opioids at the present-we will rely on Tylenol at that point Appreciate ortho and vascular/cardiology assistance. -Needs follow-up with orthopedic surgery 1 week after discharge for a wound check He will have sutures that will remain in place for 5 to 6 weeks With respect to IV abx - continues on IV daptomycin. Was on IV zosyn x 1 week which is now stopped ID Dr Jewell consulted and recommends continuing on IV Dapto while here and then convert to Augmentin 875mg po bid x 14 days from post-op period, but if ends up having BKA, would be curative and would not need any further abx. -follow CBC-leukocytosis previously resolved and returned again today for unclear reason. He is afebrile and orthopedics reports that the wound looks good -We will follow CBC in the morning (2) PAD (peripheral artery disease): S/P angiography with iliac and SFA stenting on 10/11. S/P stent to distal [employer]/SFA on 10/15. Both procedures by Dr Vázquez. Concern for [employer] perforation during procedure S/P balloon inflation on 10/11. No concern or issues since. Repeat arterial doppler of LLE on 10/12 with residual ostial SFA disease and compromised flow in profunda. ANGÉLICA < 0.30. Dr. Vázquez discussed with Robert and [facility] vascular surgery - utility of open revascularization felt to be limited. Continue asa,plavix,statin. He will not have access to tobacco as of November 18 (smoking will be banned at all state prisons). (3) Schizo affective schizophrenia: no psychotic symptoms at this time and appears to have insight into illness- appreciate psychiatry consult today due to worsening feelings of anxiety and depression given his current situation -Plan for hydroxyzine 50 mill grams p.o. nightly to be added on for insomnia (4) HTN (hypertension): Controlled -Cont lisinopril 10mg daily (5) Peripheral neuropathy: Continue Gabapentin 800 mg BID and added 400mg dose of gabapentin every afternoon. (6) HIV (human immunodeficiency virus infection): No recent CD4 counts. States he is followed by ID through [facility] via telemedicine at skilled nursing. States most recent viral load was undetectable. Continue Triumeq. Weight loss concerning for opportunistic infection (MAC, etc) but no obvious AIDS-defining infection on examination. This will need to be followed carefully. CBC w/o signs of lymphoma. ID saw here and recommends f/u with previous ID doctor after discharge (7) Severe protein-calorie malnutrition: -continue added boost MVI (8) Constipation: Now resolved and having liquid bowel movements today after receiving magnesium citrate -Continue on senna/docusate (9) DVT prophylaxis: Continue Lovenox SQ daily [facility] Public Information Director asks to be contacted to discuss discharges and to make sure they are accepted back to the facility - [phone] and ask for medical department Plan for discharge to skilled nursing tomorrow Subjective Complains of having to rely a medication to help him poop at this point. He is moving his bowels and had incontinence to liquid stool this morning and had another bowel movement this evening. Has some pain in the leg but is not wanting to take pain medication. He is agreeable to taking hydroxyzine at bedtime as suggested by psychiatry Review of Systems Review of Systems: All systems reviewed & are unremarkable except as noted in HPI & below Physical Exam Constitutional: + cachectic; no acute distress Eyes: + anicteric sclerae Neck: trachea midline, no thyromegaly Musculoskeletal: Extremities: + extremities abnormal to inspection (left lower ext in dressing not removed) and no cyanosis Skin: no rashes, warm and dry Neurologic: moves all extremities and awake; no focal motor deficits Results & Data Vital Signs (Past 12 Hours) Vital Signs Temp Pulse Resp BP Pulse Ox 10/21/18 15:14 36.8 C 80 17 107/61 98 Laboratory Results 10/21/18 10/21/18 Range/Units 05:58 05:58 WBC 13.17 H (4.8-10.8) K/uL RBC 3.65 L (4.7-6.1) M/uL Hgb 10.4 L (14.0-18.0) g/dL Hct 31.3 L (42-52) % MCV 85.8 (80-100) fL MCH 28.5 (25-34) pg MCHC 33.2 (32-36) g/dL RDW Std Deviation 44.9 (36.4-46.3) fL RDW Coeff of Joanna 14.3 (11.5-14.5) % Plt Count 373 (130-400) K/uL MPV 8.5 (7.4-10.4) fL Immature Gran % (Auto) 0.4 % Neut % (Auto) 68.7 % Lymph % (Auto) 16.8 % Mcminn % (Auto) 13.1 % Eos % (Auto) 0.8 % Baso % (Auto) 0.2 % Immature Gran # (Auto) 0.05 H (0.00-0.02) K/uL Neut # (Auto) 9.06 H (1.4-6.5) K/uL Lymph # (Auto) 2.21 (1.2-3.4) K/uL Mcminn # (Auto) 1.72 H (0.11-0.59) K/uL Eos # (Auto) 0.10 (0-0.5) K/uL Baso # (Auto) 0.03 (0-0.2) K/uL Sodium 135 L (136-145) mmol/L Potassium 4.3 (3.5-5.1) mmol/L Chloride 100 (98-107) mmol/L Carbon Dioxide 31 (21-32) mmol/L Anion Gap 4.0 (3-11) BUN 19 H D (7-18) mg/dl Creatinine 0.98 (0.6-1.4) mg/dl Est Cr Clr Drug Dosing 82.5 ml/min Est GFR ( Amer) 100.2 Est GFR (Non-Af Amer) 86.4 BUN/Creatinine Ratio 19.0 (10-20) Glucose 96 (70-99) mg/dl Calcium 9.5 (8.5-10.1) mg/dl (1) HTN (hypertension) Hypertension type: essential hypertension Qualified Code(s): I10 - Essential (primary) hypertension (2) Peripheral neuropathy Peripheral neuropathy type: polyneuropathy, unspecified Qualified Code(s): G62.9 - Polyneuropathy, unspecified (3) HIV (human immunodeficiency virus infection) HIV symptom status: asymptomatic Qualified Code(s): Z21 - Asymptomatic human immunodeficiency virus [HIV] infection status
[2018-10-21] MEDS: [UNRECOGNIZED DRUG - OTHER] PO SCH (21:55)
[2018-10-22 08:01] LABS: Basophils # (auto) 0.02 K/uL (0-0.2); Basophils % (auto) 0.2 %; Hematocrit (blood only) 30.4 % (42-52); Hemoglobin 9.7 g/dL (14.0-18.0); Immature Granulocytes # (auto) 0.03 K/uL (0.00-0.02); Immature Granulocytes % (auto) 0.3 %; Lymphocytes # (auto) 1.82 K/uL (1.2-3.4); Lymphocytes % (auto) 18.3 %; Mean Corpuscular Hgb Conc 31.9 g/dL (32-36); Mean Corpuscular Volume 86.6 fL (80-100); Mean Platelet Volume 8.6 fL (7.4-10.4); Monocytes # (auto) 1.36 K/uL (0.11-0.59); Monocytes % (auto) 13.7 %; Neutrophils # (auto) 6.61 K/uL (1.4-6.5); Neutrophils % (auto) 66.5 %; Platelet Count 362 K/uL (130-400); RDW Coefficient of Variation 14.7 % (11.5-14.5); Red Blood Count 3.51 M/uL (4.7-6.1); White Blood Count 9.94 K/uL (4.8-10.8)
[2018-10-22] MEDS: CLOPIDOGREL BISULFATE 75 MG TAB PO SCH (09:39)
[2018-10-22] MEDS: ASPIRIN 81 MG ECTAB PO SCH (09:39)
[2018-10-22] MEDS: CHOLECALCIFEROL 1,000 UNITS TAB PO SCH (09:39)
[2018-10-22] MEDS: ATORVASTATIN 40 MG TAB PO SCH (09:39)
[2018-10-22] MEDS: MULTIVITAMIN TAB PO SCH (09:40)
[2018-10-22] MEDS: LISINOPRIL 10 MG TAB PO SCH (09:40)
[2018-10-22] MEDS: GABAPENTIN 400 MG CAP PO SCH (09:40)
--- NOTE | 2018-10-22 10:57 | Discharge Summary ---
Date of Service October 22, 2018 Admission HPI Per Admitting Provider Mr. Iqbal is a 53-year-old prisoner at [facility] with a history of HIV, ?HCV, hypertension, dyslipidemia, reported schizoaffective disorder, neuropathy seen initially in the setting of peripheral arterial disease and extensive left lower extremity ulceration/gangrene. Patient is a difficult historian but reports ulceration involving his distal lower extremity for at least the last 2 months. Despite treatment at the present wound he will continue to progress and was seen by the wound care center initially on 09/17/2018. Prior to recent wounds patient states was active, exercising without claudication. Denies any history of prior vascular intervention. No history of diabetes. Prior vascular testing: CTA 07/2018 extensive atherosclerotic plaque without aneurysm or significant stenosis. Left distal common iliac stenosis with greater than 50% stenosis, significant stenosis of proximal left external iliac (max diameter 6 mm, min 4 mm external iliac). Short occlusion of left SFA with reconstitution in the proximal segment and severe diffuse disease involving remainder of SFA. Popliteal irregularities. Bilateral three-vessel runoff. Arterial duplex 09/2018: Right ANGÉLICA/TBI 1.0/0.73, left ANGÉLICA/TBI 0.31/unobtainable Right 50 to 74% stenosis in right common iliac/proximal external iliac. Mid SFA 50 to 74% stenosis. 75 to 99% mid ELPIDIO Left proximal external iliac 75 to 99% stenosis (PSV 508), 75 to 99% proximal left PFA (PSV 738), 75 to 99% proximal to mid SFA (PSV 252), 75 to 99% left mid ELPIDIO Principal Diagnosis Severe PAD, left foot osteomyelitis, status post transmetatarsal amputation left foot Discharge Exam Constitutional + cachectic; no acute distress Eyes + anicteric sclerae Neck trachea midline, no thyromegaly Respiratory normal respiratory effort, lungs clear to auscultation Cardiovascular RRR, no murmur, no edema Musculoskeletal Extremities: + extremities abnormal to inspection (left lower ext in dressing not removed) and no cyanosis Skin no rashes, warm and dry Neurologic moves all extremities and awake; no focal motor deficits Psychiatric A+Ox3, euthymic affect Discharge Data Allergies Allergy/AdvReac Type Severity Reaction Status Date / Time ibuprofen [From Motrin] AdvReac Unknown Verified 10/11/18 08:07 Consultations 10/11/18 15:05 Consult Hospitalist Routine 10/11/18 16:24 Consult Orthopedic Surgery Routine 10/19/18 12:35 Consult Infectious Diseases Routine 10/20/18 19:50 Consult Psychiatry Routine Procedures Performed Operation Date: 10/11/18 08:00 <No data on this case meets the specified criteria> Operation Date: 10/11/18 10:00 Actual Procedures p Bilateral Lower Extremitiy Angiogram, Percutaneous Transluminal Angioplasty and Stenting of Left Superficial Femoral Artery, Moderate Sedation from 1136 - 1505.(Bilateral) - Thomas Vázquez MD Operation Date: 10/15/18 12:00 Actual Procedures p Left Lower Extremity Angiogram, Percutaneous Transluminal Angioplasty left Iliac, Ultrasound Localization of Left Brachial artery, Percutaneous Transluminal Angioplasty and Stent of Left Superficial Femoral Artery/Common Femoral Artery, Moderate Sedation [id number](Left) - Thomas Vázquez MD Operation Date: 10/18/18 13:10 Actual Procedures p Left Chopart Amputation(Left) - Matt Allen, Ordered Studies 10/11/18 10:11 EV angio LE LT Routine 10/11/18 10:12 US guide vascular access Routine 10/11/18 14:27 US guide intraoperative Routine 10/12/18 06:05 US arterial duplex LE LT Routine 10/15/18 11:47 EV angio LE LT Routine 10/15/18 11:48 US guide vascular access Routine Hospital Course (1) Gangrene of left foot: Due to severe PAD. s/p TMA left foot - POD #4 Orthopedics recommends daily dressing changes using Adaptic, ABD pad, gauze, and Gilles wrap-orthopedics has signed off at this point and says he is stable for discharge back to alf NWB to left leg until after seen by orthopedic surgery. Pain control improved-continue Tylenol as needed or Tylenol with codeine at the reason as per alf doctor's discretion Appreciate ortho and vascular/cardiology assistance. -Needs follow-up with orthopedic surgery 1 week after discharge for a wound check He will have sutures that will remain in place for 5 to 6 weeks Was treated with IV daptomycin and Zosyn Infectious disease recommends completing 10 more days of Augmentin 875 mg p.o. twice daily after discharge. Leukocytosis resolved, has been afebrile the entire time. (2) PAD (peripheral artery disease): S/P angiography with iliac and SFA stenting on 10/11. Concern for PHOTOGRAPHER'S ASSISTANT perforation during procedure S/P balloon inflation on 10/11. No concern or issues since. Repeat arterial doppler of LLE on 10/12 with residual ostial SFA disease and compromised flow in profunda. ANGÉLICA < 0.30. Dr. Vázquez discussed with [facility] and [facility] vascular surgery about the possibility of transfer to tertiary care facility for vascular surgery intervention- utility of open revascularization felt to be limited. S/P stent to distal PHOTOGRAPHER'S ASSISTANT/SFA on 10/15. Both procedures by Dr Vázquez. Continue asa,plavix,statin. He will not have access to tobacco as of November 18 (smoking will be banned at all state prisons). (3) Schizo affective schizophrenia: no psychotic symptoms at this time and appears to have insight into illness- appreciate psychiatry consult today due to worsening feelings of anxiety and depression given his current situation -Plan for hydroxyzine 50 mill grams p.o. nightly to be added on for insomnia (4) HTN (hypertension): Controlled -Cont lisinopril 10mg daily (5) Peripheral neuropathy: Continue Gabapentin 800 mg BID and added 400mg dose of gabapentin every afternoon. (6) HIV (human immunodeficiency virus infection): States he is followed by ID through [facility] via telemedicine at [facility]. States most recent viral load was undetectable. Continue Triumeq. Weight loss concerning for opportunistic infection (MAC, etc) but no obvious AIDS-defining infection on examination. This will need to be followed carefully. CBC w/o signs of lymphoma. ID saw here and recommends f/u with previous ID doctor after discharge (7) Severe protein-calorie malnutrition: -continue added boost MVI (8) Constipation: Now resolved and having liquid bowel movements today after receiving magnesium citrate Bowel regimen as needed after discharge (9) DVT prophylaxis: Received Lovenox SQ daily when safe to do so from a vascular and orthopedic standpoint I discussed the case with the [facility] Jn's claim review medical director on the day of discharge and he is accepting the patient back to alf -Stable for discharge Total Time Total Time Spent Total Time Spent (In Minutes): Greater than 30 minutes Total Time Includes: Examination of the Patient, Discharge Planning and Medication Reconciliation Discharge Plan Discharge Items Patient Disposition: [facility] Reason For Visit: Peripheral Vascular Disease Discharge Diagnosis: Severe PAD, left foot osteomyelitis, status post transmetatarsal amputation Condition: Good Discharge Goals: Decrease discomfort, Diagnostic testing, Improve disease control, Learn about illness and Therapeutic intervention Activity: As commented below Bathing: Keep incision dry Weightbearing: Left non-weightbearing Non-emergency contact: Primary Care Provider and Surgeon Call non-emergency contact if: you have any medication questions, your symptoms worsen, your pain is not controlled, your pain is worsening, your temperature is above 101, your wound has increased redness, your wound has increased drainage and your wound pain has increased Follow-up/Referrals: Matt Allen DO [Surgeon] - (Follow up 1 week after discharge for wound check. Sutures will remain in place for at least 5-6 weeks. ) Jn RIOS [Primary Care Provider] - Diet: Heart Healthy Addtl Provider Instructions: Daily dressing changes. Maintain non weightbearing status on the left lower extremity. Keep foot elevated when at rest. Call the office if you have increased pain, swelling, redness, drainage, or temp [address] or greater. Follow up with Dr Allen in 1 week. Call for an appointment. [phone] Prescriptions: New multivitamin [Daily-Niki] Tablet 1 tab PO QAM Qty: 30 RF: 0 atorvastatin 40 mg Tablet 40 mg PO DAILY Qty: 30 RF: 0 acetaminophen [Mapap (acetaminophen)] 325 mg Tablet 650 mg PO Q4H PRN (Reason: pain) Qty: 30 RF: 0 gabapentin 400 mg Capsule 400 mg PO DAILY@1600 Qty: 30 RF: 0 clopidogrel 75 mg Tablet 75 mg PO QAM Qty: 30 RF: 0 hydroxyzine HCl 25 mg Tablet 50 mg PO HS Qty: 60 RF: 0 Continued gabapentin 400 mg capsule 800 mg PO BID RF: 0 aspirin [Adult Aspirin Regimen] 81 mg tablet,delayed release (DR/EC) 81 mg PO DAILY RF: 0 cholecalciferol (vitamin D3) 5,000 unit capsule 5,000 units PO DAILY RF: 0 lisinopril 10 mg tablet 10 mg PO DAILY RF: 0 Lubriderm Daily Moisture lotion TOP RF: 0 Triumeq 600-50-300 mg tablet 1 tab PO DAILY RF: 0 amoxicillin-pot clavulanate [Augmentin] 875-125 mg tablet 1 tab PO BID 10 Days Qty: 20 RF: 0 Discontinued celecoxib 100 mg capsule 100 mg PO HS RF: 0 atorvastatin 10 mg tablet 10 mg PO DAILY RF: 0 diphenhydramine HCl [Benadryl] 25 mg capsule 50 mg PO HS RF: 0 Stand-Alone Forms: [facility] Discharge Orders: Discharge Order (Routine); Ordered 10/22/18 Ordered By: Jovita Fischer Admission Data Admit Date/Time: 10/12/18 20:51 Attending Provider: Jovita Fischer Admit Provider: Jovita Fischer Primary Care Provider: Jn RIOS Other Providers: Diane Jewell ; Paramjit Lozoya ; Matt Allen ; Javon Naranjo ; Sandie Robb ; Cooper Stone ; Luana Dumont ; Edwin Howard ; Terry Wood ; Thomas Mckee ; Terry Concepcion Andrew J. ; Thomas Walton ; Avi Isbell ; Clayton Cobos ; Raymundo Galan ; Stefano Thorpe ; Ron Ramos ; Ramon Negron ; Matt Adamson ; Luana Sewell ; Jesse Gleason ; Walt Smalls ; Russ Bahena ; Pablito Mark ; Heather Monteiro. ; Rc Weinberg ; Elie Rueda ; Maty Leal ; Cooper Ramirez. ; Louis Kirby ; Chandra Gamboa ; Martin Nolan ; Jovita Fischer ; Abbi Ramesh ; Isabela Brown ; Greg Jurado ; Ginna Price ; Arcadio Gomes ; Anthony Lao ; Bryon Orellana ; Hannah De Jesus ; Obdulia Treviño ; [place] ; Thomas Becker ; Nikki Jernigan ; Britni Ramos ; Demetrio Felder ; Marnie Gallegos Service: Surgical Services Other Pending Studies at Discharge: No
[2018-10-22] MEDS: OXYCODONE/ACETAMINOPHEN 5mg/325mg TAB PO PRN (14:42)
[2018-10-22] MEDS: DAPTOmycin 400 MG in SYRINGE 0 ML IV SCH (14:42)
== END 2018-10-22 16:04 | DRG 239 ==
LOC: 2S 07:45 → ASU 07:45 → SUATTDRO 10-12 20:51 → 3N 10-13 12:46

== ENCOUNTER 2018-11-15 10:20 | Inpatient (IN) ==
[2018-11-15] MEDS ORDERED: LORazepam 0.5 MG/1 ML VIAL IV PRN (11:34)
[2018-11-15] MEDS ORDERED: ONDANSETRON INJ 2 MG/ML 2 ML VIAL IV PRN (11:34)
[2018-11-15] MEDS ORDERED: ACETAMINOPHEN 325 MG TAB PO PRN (11:34)
[2018-11-15] MEDS ORDERED: PIPERACILL/TAZOBAC CONSULT ACTIVE PRN (11:37)
[2018-11-15] MEDS ORDERED: VANCOMYCIN CONSULT ACTIVE PRN (11:42)
[2018-11-15] MEDS ORDERED: PATIENT'S HEIGHT AND/OR WEIGHT NEEDED SCH (12:00)
[2018-11-15] MEDS ORDERED: VANCOMYCIN HCL 1,750 MG in SODIUM CHLORIDE 0.9% 500 ML IV ONE (12:00)
[2018-11-15] MEDS ORDERED: PIPERACILLIN/TAZOBACTAM 3.375 GM in DEXTROSE 5% 100 ML IV ONE (12:00)
[2018-11-15 12:15] LABS: Basophils # (auto) 0.03 K/uL (0-0.2); Basophils % (auto) 0.3 %; Eosinophils # (auto) 0.39 K/uL (0-0.5); Eosinophils % (auto) 3.7 %; Hematocrit (blood only) 35.4 % (42-52); Hemoglobin 11.4 g/dL (14.0-18.0); Immature Granulocytes # (auto) 0.02 K/uL (0.00-0.02); Immature Granulocytes % (auto) 0.2 %; Lymphocytes # (auto) 3.05 K/uL (1.2-3.4); Lymphocytes % (auto) 29.2 %; Mean Corpuscular Hgb Conc 32.2 g/dL (32-36); Mean Corpuscular Volume 88.1 fL (80-100); Mean Platelet Volume 9.4 fL (7.4-10.4); Monocytes % (auto) 11.5 %; Neutrophils # (auto) 5.76 K/uL (1.4-6.5); Neutrophils % (auto) 55.1 %; Platelet Count 200 K/uL (130-400); RDW Standard Deviation 55.3 fL (36.4-46.3); Red Blood Count 4.02 M/uL (4.7-6.1); White Blood Count 10.45 K/uL (4.8-10.8)
[2018-11-15 12:31] LABS: Creatinine Clr Calc Pharmacy 88.6 ml/min; Est GFR (African American) 112.6; Est GFR (Non-African American) 97.2
--- NOTE | 2018-11-15 12:43 | History & Physical Report ---
Date of Service November 15, 2018 Assessment & Plan (1) Cellulitis: concern from wound care center that wound has progressed, will have evaluated by surgery, ID and revert to vancomycin and Zosyn. will have blood culture and wound culture of ajcobs wound (2) HIV (human immunodeficiency virus infection): will continue Triumeq, last reported viral load was zero (3) HTN (hypertension): Pt is maintined on lisinopril (4) PVD (peripheral vascular disease): As per HPI did have intervention last stay however even after intervention ANGÉLICA was low on the left, continue dual antiplatlet therapy (5) DVT prophylaxis: lovenox for dvt prevention History of Present Illness Primary Care Provider: BLANCA Jn 53-year-old male who is incarcerated who was discharged from our facility earlier in October after undergoing a transmetatarsal amputation of his left foot and to interventional vascular procedures on the circulation of his left leg these include an iliac and SFA stent on October 11 and a INSURANCE SALES AGENT/SFA stent on October 15. Patient at that time was discharged on aspirin Plavix and Augmentin as he had a concomitant infection return to the care home with wound care follow-up. I was called by Dr. Graham today from wound care who feels his wounds are progressively worsening and recommended direct admission for reevaluation for surgical debridement The patient himself does not feel there is significantly worsening he claims have sensation to his transmetatarsal flap he is a chronic ulcer on his left mid jacobs which he said looks no different to him than in the past. Dr. Graham felt this left mid jacobs ulcer was significantly changing recommended evaluation. Allergies Allergy/AdvReac Type Severity Reaction Status Date / Time ibuprofen [From Motrin] AdvReac Unknown Verified 11/15/18 09:26 Home Medications Home Medications Medication Instructions Recorded Confirmed Type abacavir 600 mg-dolutegravir 50 1 tab PO DAILY 09/17/18 11/15/18 History mg-lamivudine 300 mg tablet aspirin 81 mg tablet,delayed 81 mg PO DAILY 09/17/18 11/15/18 History release cholecalciferol (vitamin D3) 5,000 5,000 units PO DAILY 09/17/18 11/15/18 History unit capsule emollient combination no.92 ea TOP ml 09/17/18 11/15/18 History topical lotion gabapentin 400 mg capsule 800 mg PO BID 09/17/18 11/15/18 History lisinopril 10 mg tablet 10 mg PO DAILY 09/17/18 11/15/18 History acetaminophen [Mapap 650 mg PO Q4H PRN #30 tab 10/22/18 11/15/18 Rx (acetaminophen)] atorvastatin 40 mg PO DAILY #30 tab 10/22/18 11/15/18 Rx clopidogrel 75 mg PO QAM #30 tab 10/22/18 11/15/18 Rx gabapentin 400 mg PO DAILY@1600 #30 cap 10/22/18 11/15/18 Rx hydroxyzine HCl 50 mg PO HS #60 tab 10/22/18 11/15/18 Rx multivitamin [Daily-Niki] 1 tab PO QAM #30 tab 10/22/18 11/15/18 Rx Past Med/Surg History Medical History HIV (human immunodeficiency virus infection) (Chronic) HTN (hypertension) (Chronic) Hyperlipidemia (Chronic) PVD (peripheral vascular disease) (Chronic) Schizo-affective schizophrenia, chronic condition (Chronic) Anemia Family History Unknown Hypertension Social History Preferred Language: Lebanese Communication Ability: Effective Hearing Ability: Normal Welfare Officer Required: No Beliefs That Will Affect Care: None marital status: Current Living Situation: Other Current Living Situation Comment: Inmate Other Information That Helps Us Care for You: No Feels Safe at Home: Yes Safety Concerns: Feels Safe At This Time Smoking Status: Current some day smoker Tobacco Type: cigarettes Cigarettes Per Day: 3 or 4 Do You Dip or Chew Tobacco: No Second Hand Exposure: Yes Tobacco Cessation Education Requested by Patient: No Hx Alcohol Use: Yes Alcohol type: hard liquor Hx Substance Use: Yes substance use type: does not use, former substance user and marijuana Review of Systems Review of Systems: ROS: well nourished well developed. No double vision blurry vision No problems with speech or swallowing No palpitations, chest pain or pressure No Wheezing or breathing issues No abdominal pain nausea vomiting diarrhea changes in appetite or weight No burning urine urine frequency or changes in color Patient denies pain to the transmetatarsal amputation site or the midshin open a juan No unusual bruising or bleeding the MedTrans or tarsal flap has change in color No focused back pain or numbness or loss of strength No changes in memory or confusion Physical Exam Physical Exam: The patient appeared well nourished and normally developed. Vital signs as documented. Head exam is unremarkable. normocephalic, atraumatic Neck is without jugular venous distension, thyromegaly, or lymphademopathy Lungs are clear to auscultation and percussion. Cardiac exam reveals Rhythm is regular. First and second heart sounds normal. Abdominal exam reveals normal bowel sounds, no masses, no organomegaly Extremity on the left has a transfet flap, the suture line has hard darkly colored skin, there is no fluctuance or purulence, there is a dime sized open area to the mid jacobs, without local erythema or discharge Neurologic exam is A&Ox3, no focal deficits, pt claims to have gross sensation t o his amputated foot Psychologically seems neither anxious or depressed Skin is warm Dry with changes as described Results & Data Vital Signs (Past 12 Hours) Vital Signs Temp Pulse Resp BP Pulse Ox 11/15/18 11:00 36.6 C 58 L 14 137/78 100 PG Care Time/CCT Total # of Minutes Spent Total Time Spent with Patient: Total time spent is greater than 50% in coordination of care (as documented) at patient's floor/unit and/or counseling patient:
[2018-11-15 12:49] LABS: BUN Creatinine Ratio 11.6 (10-20); Creatinine Clr Calc Pharmacy 86.6 ml/min; Est GFR (African American) 111.6; Est GFR (Non-African American) 96.3
[2018-11-15] MEDS: MoRPHine SULFATE 2 MG/ML CARP IV PRN ×3 (13:25→23:51)
--- NOTE | 2018-11-15 13:35 | Pharmacy Report ---
Pharmacy Abx Initial Consult - Date of Service November 15, 2018 - Pharmacy Dosing Scope Date of Consult: 11/15/18 Consultation requested by: Dr. Ramirez Pharmacy is consulted to initiate Vancomycin and Zosyn IV dosing therapy, order appropriate labs and adjust drug dose/frequency. - Subjective The patient is a 53 year old M admitted on 11/15/18 10:43 from wound clinic for cellulitis of necrotic wound at amputation site that has progressed. - Objective Height: 6 ft Weight: 65.3 kg Vital Signs (Past 12hrs): Vital Signs Temp Pulse Resp BP Pulse Ox 11/15/18 11:00 36.6 C 58 L 14 137/78 100 Lab Results (24hrs): Laboratory Tests (24 Hours) 11/15/18 11/15/18 11/15/18 11:54 11:54 11:54 WBC 10.45 Neut # (Auto) 5.76 Creatinine 0.87 0.89 Est Cr Clr Drug Dosing 88.6 86.6 Micro Results: 11/15/18 12:28 Aerobic Blood Culture - Pending Blood Anaerobic Blood Culture - Pending 11/15/18 12:15 Gram Stain - Pending Leg Wound Culture - Pending 11/15/18 11:54 Aerobic Blood Culture - Pending Blood Anaerobic Blood Culture - Pending - Risk Factors for Resistance * Incarcerated * Hospitalization for 48 hours or more within the past 90 days * Immunocompromised (HIV) * Antimicrobial use within the last 90 days - IV Vancomycin & zosyn as inpatient; Discharged on Augmentin in early October - Assessment & Plan Assessment 53 year old M who is incarcerated, admitted from wound care clinic for progressing necrotic wound at amputation site. Recent admission in September/October of this year for transmetatarsal amputation of his left foot and to interventional vascular procedures on the circulation of his left leg these include an iliac and SFA stent on October 11 and a MEDICAL SCHEDULER/SFA stent on October 15. Pt discharged on Augmentin in early October. Pt admitted for IV antibiotics and possible surgical debridement. Patient was on IV Vancomycin last admission, will use similar dosing to reach therapeutic levels RASHEED. Plan IV Vancomycin and Zosyn for treatment of Cellulitis Vancomycin IV * Estimated PK Parameters: Vd 0.7 L/kg, Davis 0.078hr-1, t1/2 8.9hr * Loading dose: 1750 mg (26.7 mg/kg) x 1 at 1248 * Maintenance dose: 1250 mg IV (19 mg/kg) every 8 hours * Goal trough level for necrotic cellulitis : 15 to 20 mcg/mL * Trough level ordered for 11/16/18 Piperacillin/tazobactam * 3.375 g bolus administered over 30 minutes, then 3.375 g IV extended infusion every 8 hours for CrCl greater than 20 mL/min Pharmacy will continue to follow and will adjust dose/frequency as necessary. Thank you.
[2018-11-15] MEDS: GABAPENTIN 400 MG CAP PO SCH (15:52)
[2018-11-15] MEDS: PIPERACILLIN/TAZOBACTAM 3.375 GM in DEXTROSE 5% 100 ML IV SCH (18:49)
[2018-11-15] MEDS: VANCOMYCIN HCL 1,250 MG in SODIUM CHLORIDE 0.9% 250 ML IV SCH (20:18)
[2018-11-15] MEDS: ENOXAPARIN INJ 40 MG/0.4 ML SYR SQ SCH (20:19)
[2018-11-15] MEDS: GABAPENTIN 800 MG TAB PO SCH (20:19)
[2018-11-15] MEDS ORDERED: VANCOMYCIN HCL 1,000 MG in SODIUM CHLORIDE 0.9% 250 ML IV SCH (22:00)
[2018-11-16] MEDS: PIPERACILLIN/TAZOBACTAM 3.375 GM in DEXTROSE 5% 100 ML IV SCH ×3 (02:43→18:55)
[2018-11-16] MEDS: VANCOMYCIN HCL 1,250 MG in SODIUM CHLORIDE 0.9% 250 ML IV SCH ×3 (04:48→20:34)
[2018-11-16] MEDS: MoRPHine SULFATE 2 MG/ML CARP IV PRN ×3 (07:28→18:55)
[2018-11-16] MEDS: MULTIVITAMIN TAB PO SCH (07:32)
[2018-11-16] MEDS: CLOPIDOGREL BISULFATE 75 MG TAB PO SCH (07:32)
[2018-11-16] MEDS: GABAPENTIN 800 MG TAB PO SCH ×2 (07:32→20:34)
[2018-11-16] MEDS: LISINOPRIL 10 MG TAB PO SCH (07:33)
[2018-11-16] MEDS: ASPIRIN 81 MG ECTAB PO SCH (07:33)
[2018-11-16] MEDS: POLYETHYLENE (MIRALAX) 17 GM PACK PO SCH (07:34)
[2018-11-16 08:11] LABS: Hematocrit (blood only) 35.3 % (42-52); Hemoglobin 11.2 g/dL (14.0-18.0); Mean Corpuscular Hgb Conc 31.7 g/dL (32-36); Mean Corpuscular Volume 89.6 fL (80-100); Mean Platelet Volume 9.5 fL (7.4-10.4); Platelet Count 178 K/uL (130-400); RDW Coefficient of Variation 16.7 % (11.5-14.5); RDW Standard Deviation 55.5 fL (36.4-46.3); Red Blood Count 3.94 M/uL (4.7-6.1); White Blood Count 8.28 K/uL (4.8-10.8)
[2018-11-16 08:37] LABS: BUN Creatinine Ratio 15.4 (10-20); Calcium 9.5 mg/dl (8.5-10.1); Creatinine Clr Calc Pharmacy 74.1 ml/min; Est GFR (African American) 93.2; Est GFR (Non-African American) 80.5; Potassium 4.3 mmol/L (3.5-5.1)
--- NOTE | 2018-11-16 09:25 | Orthopedic Progress Note ---
Date of Service November 16, 2018 Assessment & Plan (1) PAD (peripheral artery disease): (2) Status post chopart's amputation of left foot: 4 wks s/p left Chopart's amputation Continue IV Zosyn and Vanco per medicine. Discussed tx options with patient which remain unchanged from 2 days ago. He doesn't want to have a BKA but that possibly is his best option for healing. We may continue to watch the wound but the tissue may not heal beneath the eschar. If the area is debrided and a wound vac is applied, the wound may not have the blood flow to heal. Will discuss the patient with Dr. Allen and he will see the patient later today. NWB LLE. Subjective Patient states he was admitted here after seeing wound clinic. They were concerned with the wound so they wanted him evaluated. No change in symptoms from previous visit with us 2 days ago. States there is some warmth to the foot but denies fevers or chills. Has been NWB LLE. Physical Exam Constitutional: WD/WN, vitals as above Musculoskeletal: Left foot: Stable Chopart's amputation. The flap is unchanged from office visit 2 days ago with eschar at the amputation flap. No sloughing. No erythema. No drainage from the incision. Psychiatric: A+Ox3, euthymic affect Results & Data Vital Signs (Past 12 Hours) Vital Signs Temp Pulse Resp BP Pulse Ox 11/16/18 07:18 36.9 C 92 H 18 145/75 H 93 11/15/18 23:32 37.3 C 81 14 134/70 100
[2018-11-16] MEDS ORDERED: VANCOMYCIN TROUGH ONE ×2 (11:30→17:30)
--- NOTE | 2018-11-16 13:30 | Pharmacy Report ---
Pharmacy Abx Dose Short Note - Date of Service November 16, 2018 - Assessment & Plan Assessment 53 year old M receiving IV Vancomycin and Zosyn for treatment of necrotic cellulitis Day # 2 of antimicrobial therapy. Plan Vancomycin * Trough level of 18.9 mcg/mL (appropriately drawn) is therapeutic; of note, this was drawn prior to 3rd dose and therefore not reflective of Vancomycin at steady state. The true trough at Css may be slightly higher. * Continue dose of 1250 mg IV every 8 hours * Goal trough level for necrotic cellulitis : 15 to 20 mcg/mL * Trough or random level ordered for: 11/17/18 @ 1130, which will be reflective of current regimen at steady state to determine if changes to dosing regimen needed Pharmacy will continue to follow and will adjust dose/frequency as necessary. Thank you.
--- NOTE | 2018-11-16 15:40 | Hospitalist Progress Note ---
Date of Service November 16, 2018 Assessment & Plan (1) Cellulitis: concern from wound care center that wound has progressed, surgery is following for viability of the transmetatarsal flap, patient has been changed to vancomycin and Zosyn. From his oral antibiotics, pending blood culture and wound culture of jacobs wound (2) HIV (human immunodeficiency virus infection): will continue Triumeq, last reported viral load was zero (3) HTN (hypertension): Controlled on lisinopril (4) PVD (peripheral vascular disease): As per HPI did have intervention last stay however even after intervention ANGÉLICA was low on the left, continue dual antiplatlet therapy (5) DVT prophylaxis: lovenox for dvt prevention Subjective Patient has no new complaints or problems there seem to be some demarcation of the skin on his a transmetatarsal flap which looks like the skin may not be viable this is being followed by orthopedics at this time he has good pain control was requesting ice to help his foot swelling however I feel that may compromise his already tenuous circulation they are causing vasoconstriction Review of Systems Review of Systems: ROS: well nourished well developed. No double vision blurry vision No problems with speech or swallowing No palpitations, chest pain or pressure No Wheezing or breathing issues No abdominal pain nausea vomiting diarrhea changes in appetite or weight No burning urine urine frequency or changes in color No focal joint pain or muscle pain Skin on his metatarsal flap is dark and hard and without sensation according to the patient No unusual bruising or bleeding No focused back pain or numbness or loss of strength No changes in memory or confusion Physical Exam Physical Exam: The patient appeared thin but well nourished and normally developed. Vital signs as documented. Head exam is unremarkable. normocephalic, atraumatic Neck is without jugular venous distension, thyromegaly, or lymphademopathy Lungs are clear to auscultation and percussion. Cardiac exam reveals Rhythm is regular. First and second heart sounds normal. Abdominal exam reveals normal bowel sounds, no masses, no organomegaly Extremities he is a transmetatarsal amputation of his left foot the flap is darkened and hardened concern for skin viability is been taken there is also a dime sized open areas mid jacobs with a granulomatous base Neurologic exam is A&Ox3, no focal deficits, Psychologically seems neither anxious or depressed Skin is warm Dry except as noted above Results & Data Vital Signs (Past 12 Hours) Vital Signs Temp Pulse Resp BP Pulse Ox 11/16/18 15:35 37.2 C 64 16 138/74 100 11/16/18 07:18 36.9 C 92 H 18 145/75 H 93 PG Care Time/CCT Total # of Minutes Spent Total Time Spent with Patient: Total time spent is greater than 50% in coordination of care (as documented) at patient's floor/unit and/or counseling patient:
[2018-11-16] MEDS: GABAPENTIN 400 MG CAP PO SCH (16:35)
[2018-11-16] MEDS: ENOXAPARIN INJ 40 MG/0.4 ML SYR SQ SCH (20:34)
[2018-11-17] MEDS: MoRPHine SULFATE 2 MG/ML CARP IV PRN ×3 (00:42→23:11)
[2018-11-17] MEDS: VANCOMYCIN HCL 1,250 MG in SODIUM CHLORIDE 0.9% 250 ML IV SCH ×3 (03:12→20:29)
[2018-11-17] MEDS: PIPERACILLIN/TAZOBACTAM 3.375 GM in DEXTROSE 5% 100 ML IV SCH ×3 (03:12→18:57)
[2018-11-17 06:53] LABS: Hematocrit (blood only) 33.8 % (42-52); Hemoglobin 10.8 g/dL (14.0-18.0); Mean Corpuscular Volume 87.6 fL (80-100); Mean Platelet Volume 10.1 fL (7.4-10.4); Platelet Count 169 K/uL (130-400); RDW Coefficient of Variation 16.8 % (11.5-14.5); RDW Standard Deviation 54.1 fL (36.4-46.3); Red Blood Count 3.86 M/uL (4.7-6.1)
[2018-11-17 07:32] LABS: BUN Creatinine Ratio 13.4 (10-20); Calcium 8.9 mg/dl (8.5-10.1); Est GFR (African American) 90.1; Est GFR (Non-African American) 77.7; Potassium 4.1 mmol/L (3.5-5.1)
[2018-11-17] MEDS: ASPIRIN 81 MG ECTAB PO SCH (09:30)
[2018-11-17] MEDS: GABAPENTIN 800 MG TAB PO SCH ×2 (09:30→20:32)
[2018-11-17] MEDS: LISINOPRIL 10 MG TAB PO SCH (09:30)
[2018-11-17] MEDS: CLOPIDOGREL BISULFATE 75 MG TAB PO SCH (09:30)
[2018-11-17] MEDS: POLYETHYLENE (MIRALAX) 17 GM PACK PO SCH (09:30)
[2018-11-17] MEDS: MULTIVITAMIN TAB PO SCH (09:30)
--- NOTE | 2018-11-17 11:22 | Orthopedic Progress Note ---
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 Will continue conservative management at this time. The patient understands the treatment options at this time. Will keep the patient's follow up with Dr. Allen's clinic in ~2 weeks for re-evaluation of the wound. NWB LLE. Subjective Feeling a little better today. No complaints with the left foot today. Physical Exam Constitutional: WD/WN, vitals as above Musculoskeletal: Left foot: stable appearance of Chopart's amputation. Eschar at the flap remains unchanged. Mild drainage from the dorsum of the foot. Some tenderness at the dorsal foot just distal to the ankle. No erythema. Stable ulceration at the anterior midshaft tibia. Psychiatric: A+Ox3, euthymic affect Results & Data Vital Signs (Past 12 Hours) Vital Signs Temp Pulse Resp BP Pulse Ox 11/17/18 07:44 36.5 C 61 16 151/71 H 100
[2018-11-17] MEDS ORDERED: VANCOMYCIN TROUGH ONE (11:30)
--- NOTE | 2018-11-17 12:13 | Hospitalist Progress Note ---
Date of Service November 17, 2018 Assessment & Plan (1) Cellulitis: concern from wound care center that wound has progressed, surgery is following for viability of the transmetatarsal flap, patient remains on vancomycin and Zosyn. blood culture negative to date, and pending wound culture of jacobs wound I personally discussed with Dr Allen, may need to have wound declair itself and eval what is under eschar to see if wound vac may help and have heal by secondary intent. (2) HIV (human immunodeficiency virus infection): remains on Triumeq, last reported viral load was zero (3) HTN (hypertension): remains on lisinopril (4) PVD (peripheral vascular disease): As per HPI did have intervention last stay however even after intervention ANGÉLICA was low on the left, continue dual antiplatlet therapy, no complaints of claudication (5) DVT prophylaxis: lovenox for dvt prevention Subjective pt offers no new complaints, he still is concerned about a BKA which he does not want. Review of Systems Review of Systems: ROS: well nourished well developed. No double vision blurry vision No problems with speech or swallowing No palpitations, chest pain or pressure No Wheezing or breathing issues No abdominal pain nausea vomiting diarrhea changes in appetite or weight No burning urine urine frequency or changes in color No focal joint pain or muscle pain is aware of hardened skin to ambutation site No unusual bruising or bleeding No focused back pain or numbness or loss of strength No changes in memory or confusion Physical Exam Physical Exam: The patient appeared well nourished and normally developed. Vital signs as documented. Head exam is unremarkable. normocephalic, atraumatic Neck is without jugular venous distension, thyromegaly, or lymphademopathy Lungs are clear to auscultation and percussion. Cardiac exam reveals Rhythm is regular. First and second heart sounds normal. Abdominal exam reveals normal bowel sounds, no masses, no organomegaly Extremities show hardened skin or eschar to transmet flap Neurologic exam is A&Ox3, pt claims to have sensation to transmet area excpet for eschar Psychologically seems neither anxious or depressed Results & Data Vital Signs (Past 12 Hours) Vital Signs Temp Pulse Resp BP Pulse Ox 11/17/18 07:44 36.5 C 61 16 151/71 H 100 PG Care Time/CCT Total # of Minutes Spent Total Time Spent with Patient: Total time spent is greater than 50% in coordination of care (as documented) at patient's floor/unit and/or counseling patient:
--- NOTE | 2018-11-17 13:33 | Pharmacy Report ---
Pharmacy Abx Dose Short Note - Date of Service November 17, 2018 - Assessment & Plan Assessment 53 year old M receiving IV Vancomycin and Zosyn for treatment of necrotic cellulitis Day # 3 of antimicrobial therapy. Plan Vancomycin * Trough level of 17.9 mcg/mL (appropriately drawn) is therapeutic; this level represents Vancomycin at steady state concentrations. Do not anticipate that level will fluctuate much as long as renal function remains stable. * Continue dose of 1250 mg IV every 8 hours * Goal trough level for necrotic cellulitis : 15 to 20 mcg/mL * Trough level ordered for: 11/19/18 @ 1130 to ensure Vancomycin remains therapeutic Pharmacy will continue to follow and will adjust dose/frequency as necessary. Thank you.
[2018-11-17] MEDS: GABAPENTIN 400 MG CAP PO SCH (16:12)
[2018-11-17] MEDS: ENOXAPARIN INJ 40 MG/0.4 ML SYR SQ SCH (20:31)
[2018-11-18] MEDS: PIPERACILLIN/TAZOBACTAM 3.375 GM in DEXTROSE 5% 100 ML IV SCH ×3 (00:49→17:55)
[2018-11-18] MEDS: VANCOMYCIN HCL 1,250 MG in SODIUM CHLORIDE 0.9% 250 ML IV SCH ×3 (05:00→21:09)
[2018-11-18 06:27] LABS: Hematocrit (blood only) 35.1 % (42-52); Hemoglobin 11.2 g/dL (14.0-18.0); Mean Corpuscular Hgb Conc 31.9 g/dL (32-36); Mean Corpuscular Volume 87.8 fL (80-100); Mean Platelet Volume 9.8 fL (7.4-10.4); Platelet Count 172 K/uL (130-400); RDW Coefficient of Variation 16.8 % (11.5-14.5); RDW Standard Deviation 54.1 fL (36.4-46.3); White Blood Count 8.17 K/uL (4.8-10.8)
[2018-11-18 06:56] LABS: BUN Creatinine Ratio 13.1 (10-20); Creatinine Clr Calc Pharmacy 62.2 ml/min; Est GFR (African American) 75.4
[2018-11-18] MEDS: POLYETHYLENE (MIRALAX) 17 GM PACK PO SCH (08:02)
[2018-11-18] MEDS: MoRPHine SULFATE 2 MG/ML CARP IV PRN ×3 (08:06→18:44)
[2018-11-18] MEDS: ASPIRIN 81 MG ECTAB PO SCH (08:06)
[2018-11-18] MEDS: MULTIVITAMIN TAB PO SCH (08:06)
[2018-11-18] MEDS: GABAPENTIN 800 MG TAB PO SCH ×2 (08:06→21:10)
[2018-11-18] MEDS: CLOPIDOGREL BISULFATE 75 MG TAB PO SCH (08:07)
[2018-11-18] MEDS: LISINOPRIL 10 MG TAB PO SCH (08:07)
--- NOTE | 2018-11-18 11:39 | Hospitalist Progress Note ---
Date of Service November 18, 2018 Assessment & Plan (1) Cellulitis: Of left foot transmetatarsal flap (patient underwent s/p TMA of left foot on 10/18/[address] Allen). Day #4 of vancomycin and Zosyn. Blood culture negative to date. Wound culture was taken from a medial jacobs ulceration on left leg - grew coag negative staph. Vanc will suffice for that, and the ulcer is clean today. At this time there is no immediate plans for repeat surgery of left foot. Duration of IV antibiotics? Could we switch to orals? Consider ID consultation. He has associated lymph nodes in the left groin region - these are reactive to the left foot - reassurance given. Present on Admission?: Yes (2) HIV (human immunodeficiency virus infection): Continue Triumeq Last reported viral load was zero. Managed by telemedicine at the care home with a provider in [facility]. Present on Admission?: Yes (3) HTN (hypertension): Controlled. Continue lisinopril. Present on Admission?: Yes (4) PVD (peripheral vascular disease): See Dr Vázquez operative note from September 2018 for interventions done on left leg. On exam today his left popliteal pulse and left pos tib pulses are adequate. Continue dual antiplatelet therapy. (5) Pleuritic chest pain: Although he is on lovenox for DVT proph here he has been bed-bound or wheelchair-dependent otherwise at the care home over the last month. Will check for right-sided PEs with CTA chest. Also check EKG - last EKG was late May showing ST segment elevation in numerous leads possibly due to early repolarization. If no PE could consider pericarditis. Present on Admission?: Yes (6) Schizo affective schizophrenia: No psychotic symptoms at this time. I assume the gabapentin is for neuropathy but this potentially could provide some mood stabilization. Present on Admission?: Yes (7) DVT prophylaxis: lovenox 40mg daily Subjective patient w/ 2 complaints - 1. "lump" in left groin; not painful; just noted it this AM. 2. for 3+ weeks he has noted mild right lower chest pleuritic pain. He cannot reproduce it with pushing on the chest. He has been bed-bound or wheelchair-bound since undergoing left foot TMA. Denies cough or dyspnea. Denies substernal chest pain. Denies left sided chest pain. Denies injury. Review of Systems Constitutional: no fever and no chills Respiratory: no cough and no dyspnea Cardiovascular: as per Subjective / HPI and + chest pain; no orthopnea, no paroxysmal nocturnal dyspnea and no edema Gastrointestinal: no abdominal pain, no nausea, no vomiting, no constipation and no diarrhea/loose stools Physical Exam Constitutional: + thin; no acute distress and no altered mental status ENMT: external ear and nose normal, oropharynx normal (no thrush) Respiratory: normal respiratory effort, lungs clear to auscultation Cardiovascular: Rate/Rhythm: regular rate and regular rhythm Heart Sounds: normal S1 and normal S2; no murmur Vessels: posterior tibial pulses present and popliteal pulses present; no JVD Extremities: no edema Chest (Breasts): Additional Comments: no reproducible chest wall tenderness to palpation Gastrointestinal (Abdomen): normal bowel sounds, soft, nontender, no hepatosplenomegaly Musculoskeletal: left foot TMA; fish-mouthed incision/wound clean, no active drainage during my visit; mild dark eschar surrounding the incision/flap; sutures in place Skin: no active cellulitis of left foot or active purulent drainage; scant swelling of left foot on dorsum Psychiatric: A+Ox3, euthymic affect Lymphatic: + inguinal lymphadenopathy (left - multiple nodes; all are mobile. 1 node is <1cm, 2nd node is 1.5cm.) Results & Data Vital Signs (Past 12 Hours) Vital Signs Temp Pulse Resp BP Pulse Ox 11/18/18 07:38 36.8 C 65 18 141/74 H 100 Laboratory Results Laboratory Results - last 24 hr 11/17/18 11/18/18 11/18/18 11:31 06:03 06:03 WBC 8.17 RBC 4.00 L Hgb 11.2 L Hct 35.1 L MCV 87.8 MCH 28.0 MCHC 31.9 L RDW Std Deviation 54.1 H RDW Coeff of Joanna 16.8 H Plt Count 172 MPV 9.8 Sodium 140 Potassium 4.0 Chloride 104 Carbon Dioxide 32 Anion Gap 4.0 BUN 16 Creatinine 1.24 Est Cr Clr Drug Dosing 62.2 Est GFR ( Amer) 75.4 Est GFR (Non-Af Amer) 65.0 BUN/Creatinine Ratio 13.1 Glucose 91 Calcium 9.0 Vancomycin Trough 17.9 PG Care Time/CCT Total # of Minutes Spent Total Time Spent with Patient: Total time spent is greater than 50% in coordination of care (as documented) at patient's floor/unit and/or counseling patient: (1) Cellulitis Site of cellulitis: extremity Site of cellulitis of extremity: lower extremity Laterality: left Qualified Code(s): L03.116 - Cellulitis of left lower limb (2) HIV (human immunodeficiency virus infection) HIV symptom status: asymptomatic Qualified Code(s): Z21 - Asymptomatic human immunodeficiency virus [HIV] infection status (3) HTN (hypertension) Hypertension type: essential hypertension Qualified Code(s): I10 - Essential (primary) hypertension
[2018-11-18] MEDS ORDERED: OPTIRAY 320 125ml IV PRN (12:08)
--- NOTE | 2018-11-18 12:29 | CT Scan Report ---
CT angio chest PE protocol CT DOSE: 276.44 mGy.cm HISTORY: 53 years-old Male with right chest pleuritic pain; bedbound; eval PE. Acute right-sided pl euritic chest pain TECHNIQUE: Multiple CTA images of the chest were obtained after the intravenous administration of 119 ml Optiray 320. Coronal and sagittal MIPS were obtained from the axial data set and were submitted for review. All measurements were obtained according to NASCET criteria. A dose lowering technique w as utilized adhering to the principles of ALARA. COMPARISON: CTA 07/24/2018. FINDINGS: CTA: Heart is normal in size without pericardial effusion. Coronary arterial calcifications are noted. Tho racic aorta is normal in both course and caliber without aneurysm or dissection identified. Mixed efraín que formation of the thoracic aorta and proximal great vessels which appear to be patent. The pulmona ry arterial tree is opacified to the level of the segmental branches and demonstrates no focal fillin g defects to suggest pulmonary thromboembolic disease. CT CHEST: No focal thyroid nodule or adenopathy by CT size criteria. No pneumothorax or pleural effusion. Minim al dependent subsegmental bibasilar atelectasis. Emphysema with bleb and bulla formation noted about the right lung apex. There are no suspicious pulmonary nodules or masses identified. No focal airspac e consolidation to suggest pneumonia. No overt pulmonary edema. Central airways appear to be patent. No acute process of the imaged upper abdomen. Soft tissues are within normal limits. Bones appear int act. IMPRESSION: 1. No acute aortic pathology or evidence of pulmonary thromboembolic disease. 2. Emphysema. 3. No focal airspace consolidation typical for pneumonia. 4. No pleural effusion or adenopathy. The above report was generated using voice recognition software. It may contain grammatical, syntax o r spelling errors. Electronically signed by: Ugo Burris M.D. 11/18/2018 12:28 PM
--- NOTE | 2018-11-18 14:58 | Infectious Disease Consult ---
Date of Consultation November 18, 2018 Assessment & Plan (1) Postoperative wound infection: Patient with infected left foot wound in the setting of severe peripheral arterial disease status post vascular intervention, as well as HIV infection which appears to be well-controlled. Likely will require further surgical intervention, and suspect will need BKA, but for now vancomycin and Zosyn appropriate given likelihood of polymicrobial infection. Will follow. (2) HIV (human immunodeficiency virus infection): (3) PAD (peripheral artery disease): History of Present Illness Reason for Consultation: Recent left TMA, wound infection/cellulitis Attending Physician: Rc Weinberg History of Present Illness 53-year-old male with long-standing HIV disease, peripheral arterial disease, status post recent left transmetatarsal amputation and vascular intervention for ischemia. Was discharged on Augmentin for wound infection. Was seen at the wound care center and found to have necrotic left foot wound and was admitted to the hospital for further management. He has been started on IV vancomycin and Zosyn. Continues to have drainage, some increased warmth and swelling. Blood cultures have been no growth today, wound culture only growing coagulase- negative staph. Allergies Allergy/AdvReac Type Severity Reaction Status Date / Time ibuprofen [From Motrin] AdvReac Unknown Verified 11/15/18 09:26 Home Medications Home Medications Medication Instructions Recorded Confirmed Type abacavir 600 mg-dolutegravir 50 1 tab PO DAILY 09/17/18 11/15/18 History mg-lamivudine 300 mg tablet aspirin 81 mg tablet,delayed 81 mg PO DAILY 09/17/18 11/15/18 History release cholecalciferol (vitamin D3) 5,000 5,000 units PO DAILY 09/17/18 11/15/18 History unit capsule emollient combination no.92 ea TOP ml 09/17/18 11/15/18 History topical lotion gabapentin 400 mg capsule 800 mg PO BID 09/17/18 11/15/18 History lisinopril 10 mg tablet 10 mg PO DAILY 09/17/18 11/15/18 History acetaminophen [Mapap 650 mg PO Q4H PRN #30 tab 10/22/18 11/15/18 Rx (acetaminophen)] atorvastatin 40 mg PO DAILY #30 tab 10/22/18 11/15/18 Rx clopidogrel 75 mg PO QAM #30 tab 10/22/18 11/15/18 Rx gabapentin 400 mg PO DAILY@1600 #30 cap 10/22/18 11/15/18 Rx hydroxyzine HCl 50 mg PO HS #60 tab 10/22/18 11/15/18 Rx multivitamin [Daily-Niki] 1 tab PO QAM #30 tab 10/22/18 11/15/18 Rx Patient History Medical History HIV (human immunodeficiency virus infection) (Chronic) HTN (hypertension) (Chronic) PVD (peripheral vascular disease) (Chronic) Hyperlipidemia (Chronic) Schizo-affective schizophrenia, chronic condition (Chronic) Anemia Family History Unknown Hypertension Social History Preferred Language: Polish Communication Ability: Effective Hearing Ability: Normal [employer] Required: No Beliefs That Will Affect Care: None marital status: Current Living Situation: Other Current Living Situation Comment: Inmate Other Information That Helps Us Care for You: No Feels Safe at Home: Yes Safety Concerns: Feels Safe At This Time Smoking Status: Current some day smoker Tobacco Type: cigarettes Cigarettes Per Day: 3 or 4 Do You Dip or Chew Tobacco: No Second Hand Exposure: Yes Tobacco Cessation Education Requested by Patient: No Hx Alcohol Use: Yes Alcohol type: hard liquor Hx Substance Use: Yes substance use type: does not use, former substance user and marijuana Review of Systems Review of Systems: All systems reviewed & are unremarkable except as noted in HPI & below Physical Exam Constitutional: WD/WN, vitals as above comfortable; no acute distress Eyes: PERRL, conjunctivae normal, anicteric sclerae ENMT: external ear and nose normal, oropharynx normal Neck: trachea midline, no thyromegaly neck nontender Respiratory: normal respiratory effort, lungs clear to auscultation normal percussion; does not use accessory muscles Cardiovascular: Rate/Rhythm: regular rate and regular rhythm Heart Sounds: normal S1 and normal S2; no gallop, no murmur and no cardiac rub Vessels: normal peripheral pulses; no JVD Gastrointestinal (Abdomen): normal bowel sounds, soft, nontender, no hepatosplenomegaly Musculoskeletal: no cyanosis or clubbing, extremities motor strength 5/5 Spine: thoracic spine normal to inspection and lumbar spine normal to inspection ; no cervical spinal tenderness Skin: normal turgor and + wound (Necrotic left TMA surgical wound with induration, serous drainage); no rashes Neurologic: moves all extremities; no focal motor deficits Psychiatric: A+Ox3, euthymic affect Orientation: cooperative Lymphatic: no cervical or axillary lymphadenopathy no inguinal lymphadenopathy Results & Data Vital Signs (Past 12 Hours) Vital Signs Temp Pulse Resp BP Pulse Ox 11/18/18 07:38 36.8 C 65 18 141/74 H 100 Laboratory Results Short CBC 11/18/18 Range/Units 06:03 WBC 8.17 (4.8-10.8) K/uL Hgb 11.2 L (14.0-18.0) g/dL Hct 35.1 L (42-52) % Plt Count 172 (130-400) K/uL BMP 11/18/18 06:03 Sodium 140 Potassium 4.0 Chloride 104 Carbon Dioxide 32 BUN 16 Creatinine 1.24 Glucose 91 Calcium 9.0 Diagnostic Findings Microbiology 11/15/18 12:28 Blood Aerobic Blood Culture - Preliminary No growth in Aerobic bottle after 48 hours. 11/15/18 12:28 Blood Anaerobic Blood Culture - Preliminary No growth in Anaerobic bottle after 48 hours. 11/15/18 11:54 Blood Aerobic Blood Culture - Preliminary No growth in Aerobic bottle after 48 hours. 11/15/18 11:54 Blood Anaerobic Blood Culture - Preliminary No growth in Anaerobic bottle after 48 hours. 11/15/18 12:15 Leg Gram Stain - Final 11/15/18 12:15 Leg Wound Culture - Final Coag negative Staphylococcus (1) HIV (human immunodeficiency virus infection) HIV symptom status: asymptomatic Qualified Code(s): Z21 - Asymptomatic human immunodeficiency virus [HIV] infection status
[2018-11-18] MEDS: GABAPENTIN 400 MG CAP PO SCH (15:48)
[2018-11-18] MEDS: ENOXAPARIN INJ 40 MG/0.4 ML SYR SQ SCH (21:09)
[2018-11-18] MEDS: TRIUMEQ PO SCH (21:10)
[2018-11-19] MEDS: MoRPHine SULFATE 2 MG/ML CARP IV PRN ×4 (01:27→23:58)
[2018-11-19] MEDS: PIPERACILLIN/TAZOBACTAM 3.375 GM in DEXTROSE 5% 100 ML IV SCH ×3 (03:09→18:42)
[2018-11-19] MEDS: VANCOMYCIN HCL 1,250 MG in SODIUM CHLORIDE 0.9% 250 ML IV SCH ×3 (03:10→20:07)
[2018-11-19 07:26] LABS: Hematocrit (blood only) 32.8 % (42-52); Hemoglobin 10.5 g/dL (14.0-18.0); Mean Corpuscular Volume 88.4 fL (80-100); Mean Platelet Volume 9.7 fL (7.4-10.4); Platelet Count 171 K/uL (130-400); RDW Coefficient of Variation 16.7 % (11.5-14.5); RDW Standard Deviation 54.5 fL (36.4-46.3); Red Blood Count 3.71 M/uL (4.7-6.1); White Blood Count 8.09 K/uL (4.8-10.8)
[2018-11-19] MEDS: POLYETHYLENE (MIRALAX) 17 GM PACK PO SCH (07:33)
[2018-11-19] MEDS: GABAPENTIN 800 MG TAB PO SCH ×2 (07:41→21:38)
[2018-11-19] MEDS: MULTIVITAMIN TAB PO SCH (07:41)
[2018-11-19] MEDS: LISINOPRIL 10 MG TAB PO SCH (07:42)
[2018-11-19] MEDS: CLOPIDOGREL BISULFATE 75 MG TAB PO SCH (07:42)
[2018-11-19] MEDS: ASPIRIN 81 MG ECTAB PO SCH (07:42)
[2018-11-19 08:04] LABS: BUN Creatinine Ratio 12.5 (10-20); Calcium 9.2 mg/dl (8.5-10.1); Creatinine Clr Calc Pharmacy 76.3 ml/min; Est GFR (African American) 96.6; Est GFR (Non-African American) 83.3; Potassium 3.8 mmol/L (3.5-5.1)
[2018-11-19] MEDS ORDERED: VANCOMYCIN TROUGH ONE (11:30)
--- NOTE | 2018-11-19 13:26 | Pharmacy Report ---
Pharmacy Abx Dose Short Note - Date of Service November 19, 2018 - Assessment & Plan A/P Vanco trough reflective of Css continues to be therapeutic, 17.6mcg/mL. No acute fluctuations in renal fxn or clinical status. Will continue with current dose of vancomycin 1250mg q8. Will order a new trough if change in renal fxn necessitates. Pharmacy will continue to follow and will adjust dose/frequency as necessary. Thank you.
[2018-11-19] MEDS: LIDOCAINE 5% 1 PATCH TD SCH (14:00)
[2018-11-19] MEDS: GABAPENTIN 400 MG CAP PO SCH (15:56)
--- NOTE | 2018-11-19 20:29 | Infectious Disease Progress Nt ---
Date of Service November 19, 2018 Assessment & Plan (1) Postoperative wound infection: Patient with infected left foot wound in the setting of severe peripheral arterial disease status post vascular intervention, as well as HIV infection which appears to be well-controlled. Likely will require further surgical intervention, and suspect will need BKA, but for now vancomycin and Zosyn appropriate given likelihood of polymicrobial infection. Will follow. (2) HIV (human immunodeficiency virus infection): (3) PAD (peripheral artery disease): Subjective Patient seen in follow-up for left foot infection following amputation. States pain slightly better, remains afebrile. Cultures remain negative today. No other new complaints Review of Systems Review of Systems: All systems reviewed & are unremarkable except as noted in HPI & below Physical Exam Constitutional: WD/WN, vitals as above comfortable; no acute distress Eyes: PERRL, conjunctivae normal, anicteric sclerae ENMT: external ear and nose normal, oropharynx normal Neck: trachea midline, no thyromegaly neck nontender Respiratory: normal respiratory effort, lungs clear to auscultation normal percussion; does not use accessory muscles Cardiovascular: Rate/Rhythm: regular rate and regular rhythm Heart Sounds: normal S1 and normal S2; no gallop, no murmur and no cardiac rub Vessels: normal peripheral pulses; no JVD Gastrointestinal (Abdomen): normal bowel sounds, soft, nontender, no hepatosplenomegaly Musculoskeletal: no cyanosis or clubbing, extremities motor strength 5/5 Spine: thoracic spine normal to inspection and lumbar spine normal to inspection; no cervical spinal tenderness Skin: normal turgor and + wound (Necrotic left TMA surgical wound with induration, serous drainage); no rashes Neurologic: moves all extremities; no focal motor deficits Psychiatric: A+Ox3, euthymic affect Orientation: cooperative Lymphatic: no cervical or axillary lymphadenopathy no inguinal lymphadenopathy Results & Data Vital Signs (Past 12 Hours) Vital Signs Temp Pulse Resp BP Pulse Ox 11/19/18 15:11 36.8 C 69 16 135/63 99 Laboratory Results Short CBC 11/19/18 Range/Units 07:04 WBC 8.09 (4.8-10.8) K/uL Hgb 10.5 L (14.0-18.0) g/dL Hct 32.8 L (42-52) % Plt Count 171 (130-400) K/uL BMP 11/19/18 07:04 Sodium 139 Potassium 3.8 Chloride 105 Carbon Dioxide 29 BUN 13 Creatinine 1.01 Glucose 101 H Calcium 9.2 Diagnostic Findings Microbiology 11/15/18 12:28 Blood Aerobic Blood Culture - Preliminary No growth in Aerobic bottle after 48 hours. 11/15/18 12:28 Blood Anaerobic Blood Culture - Preliminary No growth in Anaerobic bottle after 48 hours. 11/15/18 11:54 Blood Aerobic Blood Culture - Preliminary No growth in Aerobic bottle after 48 hours. 11/15/18 11:54 Blood Anaerobic Blood Culture - Preliminary No growth in Anaerobic bottle after 48 hours. 11/15/18 12:15 Leg Gram Stain - Final 11/15/18 12:15 Leg Wound Culture - Final Coag negative Staphylococcus (1) HIV (human immunodeficiency virus infection) HIV symptom status: asymptomatic Qualified Code(s): Z21 - Asymptomatic human immunodeficiency virus [HIV] infection status
--- NOTE | 2018-11-19 21:05 | Hospitalist Progress Note ---
Date of Service November 19, 2018 Assessment & Plan (1) Cellulitis: Of left foot transmetatarsal flap (patient underwent s/p TMA of left foot on 10/18/[address] Allen). Day #5 of vancomycin and Zosyn. Blood culture negative to date. Wound culture was taken from a medial jacobs ulceration on left leg - grew coag negative staph. vanco will cover such. At this time there is no immediate plans for repeat surgery of left foot. Appreciate ID consult - Dr Dickey recommending ongoing use of IV zosyn/vanco for now. Duration of IV? Switch to PO at some point. He has associated lymph nodes in the left groin region - these are reactive to the left foot - will follow. No major changes in foot today. (2) HIV (human immunodeficiency virus infection): Continue Triumeq Last reported viral load was zero. Managed by telemedicine [place] [facility] with a provider in [facility]. (3) HTN (hypertension): Controlled. Continue lisinopril. (4) PVD (peripheral vascular disease): See Dr Vázquez operative note from September 2018 for interventions done on left leg. On exam today his left popliteal pulse and left pos tib pulses are adequate. Continue dual antiplatelet therapy. Ideally should be on statin therapy - contraindication with HIV Meds? (5) Pleuritic chest pain: CTA chest negative for PE, pneumonia, rib fracture, right-sided pneumonia, etc. EKG w/o ischemic changes. No symptoms to suggest pericarditis. Musculoskeletal? Add lidoderm patches and reassess. (6) Schizo affective schizophrenia: No issues. I assume the gabapentin is for neuropathy but this potentially could provide some mood stabilization. (7) DVT prophylaxis: lovenox 40mg daily appreciate ID and ortho consultations Subjective patient still with occasional discomfort over right lower chest wall but comes and goes. does not interfere with eating. eating does not make it worse. no substernal pain or left-sided chest pain. denies abd pain. left foot "throbs" at times. minimal drainage of left foot. Review of Systems Constitutional: no fever and no chills Respiratory: no dyspnea Cardiovascular: as per Subjective / HPI; no orthopnea and no paroxysmal nocturnal dyspnea Gastrointestinal: no abdominal pain, no bloating, no nausea, no vomiting and no diarrhea/loose stools Physical Exam Constitutional: + thin; no acute distress and no altered mental status ENMT: external ear and nose normal, oropharynx normal Respiratory: normal respiratory effort, lungs clear to auscultation Cardiovascular: Rate/Rhythm: regular rate and regular rhythm Heart Sounds: normal S1 and normal S2; no murmur Vessels: posterior tibial pulses present (left foot 1+ at best, right foot 2+) and popliteal pulses present; no JVD Extremities: no edema Chest (Breasts): Additional Comments: still no reproducible chest wall pain on right to palpation Gastrointestinal (Abdomen): normal bowel sounds, soft, nontender, no hepatosplenomegaly Skin: left foot - incision present from prior TMA; black eschar over the TMA flap; no change in color today; punctate area of drainage medially; no cellulitis Psychiatric: A+Ox3, euthymic affect Results & Data Vital Signs (Past 12 Hours) Vital Signs Temp Pulse Resp BP Pulse Ox 11/19/18 15:11 36.8 C 69 16 135/63 99 Laboratory Results Laboratory Results - last 24 hr 11/19/18 11/19/18 11/19/18 07:04 07:04 12:02 WBC 8.09 RBC 3.71 L Hgb 10.5 L Hct 32.8 L MCV 88.4 MCH 28.3 MCHC 32.0 RDW Std Deviation 54.5 H RDW Coeff of Joanna 16.7 H Plt Count 171 MPV 9.7 Sodium 139 Potassium 3.8 Chloride 105 Carbon Dioxide 29 Anion Gap 5.0 BUN 13 Creatinine 1.01 Est Cr Clr Drug Dosing 76.3 Est GFR ( Amer) 96.6 Est GFR (Non-Af Amer) 83.3 BUN/Creatinine Ratio 12.5 Glucose 101 H Calcium 9.2 Vancomycin Trough 17.6 PG Care Time/CCT Total # of Minutes Spent Total Time Spent with Patient: Total time spent is greater than 50% in coordination of care (as documented) at patient's floor/unit and/or counseling patient: (1) Cellulitis Laterality: left Site of cellulitis: extremity Site of cellulitis of extremity: lower extremity Qualified Code(s): L03.116 - Cellulitis of left lower limb (2) HIV (human immunodeficiency virus infection) HIV symptom status: asymptomatic Qualified Code(s): Z21 - Asymptomatic human immunodeficiency virus [HIV] infection status (3) HTN (hypertension) Hypertension type: essential hypertension Qualified Code(s): I10 - Essential (primary) hypertension
[2018-11-19] MEDS: ENOXAPARIN INJ 40 MG/0.4 ML SYR SQ SCH (21:37)
[2018-11-19] MEDS: TRIUMEQ PO SCH (21:41)
[2018-11-20] MEDS: PIPERACILLIN/TAZOBACTAM 3.375 GM in DEXTROSE 5% 100 ML IV SCH ×3 (02:23→17:48)
[2018-11-20] MEDS: VANCOMYCIN HCL 1,250 MG in SODIUM CHLORIDE 0.9% 250 ML IV SCH ×3 (04:29→20:00)
[2018-11-20] MEDS: MoRPHine SULFATE 2 MG/ML CARP IV PRN ×3 (07:46→23:37)
[2018-11-20] MEDS: GABAPENTIN 800 MG TAB PO SCH ×2 (09:29→21:08)
[2018-11-20] MEDS: POLYETHYLENE (MIRALAX) 17 GM PACK PO SCH (09:29)
[2018-11-20] MEDS: MULTIVITAMIN TAB PO SCH (09:29)
[2018-11-20] MEDS: LISINOPRIL 10 MG TAB PO SCH (09:29)
[2018-11-20] MEDS: CLOPIDOGREL BISULFATE 75 MG TAB PO SCH (09:29)
[2018-11-20] MEDS: ASPIRIN 81 MG ECTAB PO SCH (09:30)
[2018-11-20] MEDS: LIDOCAINE 5% 1 PATCH TD SCH (09:31)
--- NOTE | 2018-11-20 15:24 | Magnetic Resonance Report ---
MR foot LT w/o con HISTORY: 53 years-old Male recent TMA; concern for osteomyelitis chronic pain and swelling of the le ft foot. Clinical concern for osteomyelitis. History of prior forefoot amputation. COMPARISON: None available TECHNIQUE: Multiplanar multisequence MRI of the left foot was obtained without the use of IV contrast . FINDINGS: Heterogeneous appearance of the bone marrow with patchy decreased T1 signal and extensive patchy incr eased PD and STIR signal. 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 Postoperati ve changes from prior amputation with resection of the forefoot and midfoot with the navicular remain ing. Study is limited without the use of IV contrast. There is diffuse subcutaneous, intramuscular an d deep tissue edema about the foot with soft tissue ulceration of the medial midfoot distribution gina suring up to at least 1.4 cm on image 26 series 9. Deep to this ulceration there is decreased T1 and increased T2 signal with ill-defined cortex of the medial aspect navicular (for example image 20 seri es 9). No drainable fluid collection identified. IMPRESSION: 1. Postoperative changes from prior amputation of the forefoot and midfoot with navicular, talus and calcaneus remaining. 2. There is extensive heterogeneity with increased T2 signal and decreased T1 signal throughout the b harini structures suggestive of marrow edema/bone demineralization. 3. Suggested cellulitis with myositis of the foot with soft tissue ulceration of the medial midfoot d istribution. Marrow changes with cortical regularity of the medial navicular may reflect developing o steomyelitis in the appropriate clinical setting. The above report was generated using voice recognition software. It may contain grammatical, syntax o r spelling errors. Electronically signed by: Ugo Burris M.D. 11/20/2018 3:23 PM
[2018-11-20] MEDS: GABAPENTIN 400 MG CAP PO SCH (16:20)
--- NOTE | 2018-11-20 21:03 | Hospitalist Progress Note ---
Date of Service November 20, 2018 Assessment & Plan (1) Cellulitis: Of left foot transmetatarsal flap (patient underwent s/p TMA of left foot on 10/18/[address] Allen). Day #6 of vancomycin and Zosyn. Blood culture negative to date. Wound culture was taken from a medial jacobs ulceration on left leg - grew coag negative staph. vanco will cover such. At this time there is no immediate plans for repeat surgery of left foot. MRI of foot obtained today to r/o osteomyelitis in light of appearance of foot as well as c/o worsening pain. There is concern of osteomyelitis of navicular bone. I spoke with Dr Allen and Ramon EAST today from ortho. Discussed MRI results. They will have ortho team see him tomorrow. However, at this time, they are leaning towards conservative, medical management with ongoing IV antibiotics. If no further surgery planned then we are looking at 6 weeks of IV/PO abx therapy. Will defer abx selection, course, etc to Dr Dickey and orthopedics. Continue pain control. (2) HIV (human immunodeficiency virus infection): Continue Triumeq Last reported viral load was zero. Managed by telemedicine at the group home with a provider in [facility]. (3) HTN (hypertension): Controlled. Continue lisinopril. (4) PVD (peripheral vascular disease): See Dr Vázquez operative note from September 2018 for interventions done on left leg. Continue dual antiplatelet therapy. Ideally should be on statin therapy. Spoke with pharmacy - ok to use crestor or pravastatin in setting of HIV meds. Start pravastatin 40mg daily. (5) Pleuritic chest pain: CTA chest negative for PE, pneumonia, rib fracture, right-sided pneumonia, etc. EKG w/o ischemic changes. No symptoms to suggest pericarditis. Musculoskeletal? Added lidoderm patches with improved symptoms suggesting it was musculoskeletal in origin. (6) Schizo affective schizophrenia: No issues. I assume the gabapentin is for neuropathy but this potentially could provide some mood stabilization. (7) Moderate protein-calorie malnutrition: add boost BID cont MVI has lost 5 kg of weight since earlier this year (7% loss) (8) DVT prophylaxis: lovenox 40mg daily appreciate ID and ortho consultations Subjective pt states his left foot has considerable pain today - "the worst it has been" there has been more drainage as well right-sided chest wall pain IS better w/ lidoderms no diarrhea no new complaints Review of Systems Constitutional: + weight loss (5 kg since earlier this spring; he has noted muscle wasting in face); no fever and no chills Respiratory: no cough and no dyspnea Cardiovascular: as per Subjective / HPI; no orthopnea and no paroxysmal nocturnal dyspnea Gastrointestinal: no abdominal pain, no nausea and no vomiting Physical Exam Constitutional: + thin; no acute distress and no altered mental status ENMT: external ear and nose normal, oropharynx normal Respiratory: normal respiratory effort, lungs clear to auscultation Cardiovascular: Rate/Rhythm: regular rate and regular rhythm Heart Sounds: normal S1 and normal S2; no murmur Vessels: posterior tibial pulses present (left foot 1+ at best, right foot 2+) and popliteal pulses present; no JVD Extremities: no edema Gastrointestinal (Abdomen): normal bowel sounds, soft, nontender, no hepatosplenomegaly Musculoskeletal: left foot TMA - flap with black eschar; sutures in place; mild purulent drainage noted today; mild swelling on dorsum of stump of foot; minimal erythema surrounding incision Psychiatric: A+Ox3, euthymic affect Results & Data Vital Signs (Past 12 Hours) Vital Signs Temp Pulse Resp BP Pulse Ox 11/20/18 15:22 36.4 C L 77 16 152/73 H 100 11/20/18 09:27 138/54 L Diagnostic Findings MRI left foot - IMPRESSION: 1. Postoperative changes from prior amputation of the forefoot and midfoot with navicular, talus and calcaneus remaining. 2. There is extensive heterogeneity with increased T2 signal and decreased T1 signal throughout the bony structures suggestive of marrow edema/bone demineralization. 3. Suggested cellulitis with myositis of the foot with soft tissue ulceration of the medial midfoot distribution. Marrow changes with cortical regularity of the medial navicular may reflect developing osteomyelitis in the appropriate clinical setting. PG Care Time/CCT Total # of Minutes Spent Total Time Spent with Patient: Total time spent is greater than 50% in coordination of care (as documented) at patient's floor/unit and/or counseling patient: (1) Cellulitis Laterality: left Site of cellulitis: extremity Site of cellulitis of extremity: lower extremity Qualified Code(s): L03.116 - Cellulitis of left lower limb (2) HIV (human immunodeficiency virus infection) HIV symptom status: asymptomatic Qualified Code(s): Z21 - Asymptomatic human immunodeficiency virus [HIV] infection status (3) HTN (hypertension) Hypertension type: essential hypertension Qualified Code(s): I10 - Essential (primary) hypertension
[2018-11-20] MEDS: ENOXAPARIN INJ 40 MG/0.4 ML SYR SQ SCH (21:08)
[2018-11-20] MEDS: TRIUMEQ PO SCH (21:09)
[2018-11-20] MEDS: PRAVASTATIN SOD 40 MG TAB PO SCH (22:03)
[2018-11-21] MEDS: VANCOMYCIN HCL 1,250 MG in SODIUM CHLORIDE 0.9% 250 ML IV SCH ×3 (03:29→20:26)
[2018-11-21] MEDS: PIPERACILLIN/TAZOBACTAM 3.375 GM in DEXTROSE 5% 100 ML IV SCH ×3 (03:29→18:22)
[2018-11-21] MEDS: MoRPHine SULFATE 2 MG/ML CARP IV PRN ×4 (03:32→23:45)
[2018-11-21 05:42] LABS: Hematocrit (blood only) 31.5 % (42-52); Hemoglobin 10.2 g/dL (14.0-18.0); Mean Corpuscular Hgb Conc 32.4 g/dL (32-36); Mean Corpuscular Volume 86.8 fL (80-100); Mean Platelet Volume 9.5 fL (7.4-10.4); Platelet Count 158 K/uL (130-400); RDW Coefficient of Variation 16.7 % (11.5-14.5); RDW Standard Deviation 53.4 fL (36.4-46.3); Red Blood Count 3.63 M/uL (4.7-6.1); White Blood Count 7.34 K/uL (4.8-10.8)
[2018-11-21 06:19] LABS: Creatinine Clr Calc Pharmacy 63.7 ml/min; Est GFR (African American) 77.6
--- NOTE | 2018-11-21 08:41 | Orthopedic Progress Note ---
Date of Service November 21, 2018 Assessment & Plan (1) PAD (peripheral artery disease): (2) Status post chopart's amputation of left foot: 5 wks s/p left Chopart's amputation MRI results reviewed, increased bone edema near amputation site concerning for possible developing osteo of navicular Continue IV Zosyn and Vanco for now as per medicine. Will continue conservative management for now. Will have Dr. Allen review case. Patient may need BKA in the future if clinical picture persists or worsens. NWB LLE. Supervising Physician Co-Signing Physician Notes Patient seen and examined by myself, agree with above assessment plan. Subjective Patient seen today resting in bed. Pain in foot is controlled. Does have mild drainage from flap incision, states this is unchanged. Has recent foot MRI concern for possible developing osteo of the navicular. Review of Systems Review of Systems: All systems reviewed & are unremarkable except as noted in HPI & below Constitutional: as per Subjective / HPI Physical Exam Physical Exam: Left foot: status post TMA. Eschar at the flap edges, sutures in place. Mild drainage from the dorsum of the foot. Some tenderness at the dorsal foot just distal to the ankle. Mild erythema medially. Like no eric purulence. No induration or fluctuance. Constitutional: WD/WN, vitals as above Results & Data Vital Signs (Past 12 Hours) Vital Signs Temp Pulse Resp BP Pulse Ox 11/21/18 07:10 36.7 C 65 19 134/62 99 11/20/18 23:39 37.0 C 74 18 153/70 H 99 Diagnostic Findings Left foot MRI: IMPRESSION: 1. Postoperative changes from prior amputation of the forefoot and midfoot with navicular, talus and calcaneus remaining. 2. There is extensive heterogeneity with increased T2 signal and decreased T1 signal throughout the bony structures suggestive of marrow edema/bone demineralization. 3. Suggested cellulitis with myositis of the foot with soft tissue ulceration of the medial midfoot distribution. Marrow changes with cortical regularity of the medial navicular may reflect developing osteomyelitis in the appropriate clinical setting.
[2018-11-21] MEDS: MULTIVITAMIN TAB PO SCH (09:27)
[2018-11-21] MEDS: ASPIRIN 81 MG ECTAB PO SCH (09:28)
[2018-11-21] MEDS: LISINOPRIL 10 MG TAB PO SCH (09:28)
[2018-11-21] MEDS: GABAPENTIN 800 MG TAB PO SCH ×2 (09:28→20:30)
[2018-11-21] MEDS: CLOPIDOGREL BISULFATE 75 MG TAB PO SCH (09:28)
[2018-11-21] MEDS: LIDOCAINE 5% 1 PATCH TD SCH (09:29)
[2018-11-21] MEDS: POLYETHYLENE (MIRALAX) 17 GM PACK PO SCH (09:29)
[2018-11-21] MEDS: GABAPENTIN 400 MG CAP PO SCH (16:40)
[2018-11-21] MEDS: PRAVASTATIN SOD 40 MG TAB PO SCH (16:40)
--- NOTE | 2018-11-21 20:23 | Hospitalist Progress Note ---
Date of Service November 21, 2018 Assessment & Plan (1) Cellulitis: Of left foot transmetatarsal flap (patient underwent s/p TMA of left foot on 10/18/[address] Allen). Day #7 of vancomycin and Zosyn. Blood cultures negative to date. Wound culture was taken from a medial jacobs ulceration on left leg - grew coag negative staph. vanco will cover such. MRI of left foot 11/20/18 -- there is concern of osteomyelitis of navicular bone. Orthopedics re-evaluated today -- no plans for additional surgical intervention; advised ongoing IV abx. I suspect he will need 6 weeks of IV/PO abx therapy. Will defer abx selection, course, etc to Dr Dickey and orthopedics. Will d/w Dr Dickey on Sunday about PICC line placement, choice of IV abx, etc. Continue pain control. (2) HIV (human immunodeficiency virus infection): Continue Triumeq Last reported viral load was zero. [facility]. (3) HTN (hypertension): acceptable control (130s - 150s systolic). Continue lisinopril. (4) PVD (peripheral vascular disease): See Dr Vázquez operative note from September 2018 for interventions done on left leg. Continue dual antiplatelet therapy. Cont pravastatin. Spoke with pharmacy - ok to use crestor or pravastatin in setting of HIV meds. (5) Pleuritic chest pain: RIGHT side of chest. CTA chest negative for PE, pneumonia, rib fracture, right-sided pneumonia, etc. EKG w/o ischemic changes. No symptoms to suggest pericarditis. Added lidoderm patches with improved symptoms suggesting it was musculoskeletal in origin. no complaints of pain today. (6) Schizo affective schizophrenia: No issues. No psychotic symptoms. (7) Moderate protein-calorie malnutrition: cont boost BID cont MVI has lost 5 kg of weight since earlier this year (7% loss) (8) DVT prophylaxis: lovenox 40mg daily appreciate ID and ortho consultations Subjective patient without any complaints. ongoing low-grade discomfort in left foot. when I told him he likely would need prolonged course of IV abx - and most of it would be outside of hospital - he became upset. [facility] and alluded to a "lawsuit" because they "wouldn't listen to me" [about his left foot months ago]. eating well here. no new issues. Review of Systems Constitutional: no fever Respiratory: no cough and no dyspnea Cardiovascular: no chest pain Gastrointestinal: no abdominal pain and no diarrhea/loose stools Musculoskeletal: left elbow swelling - chronic Physical Exam Constitutional: + thin; no acute distress and no altered mental status ENMT: external ear and nose normal, oropharynx normal Respiratory: normal respiratory effort, lungs clear to auscultation Cardiovascular: Rate/Rhythm: regular rate and regular rhythm Heart Sounds: normal S1 and normal S2; no murmur Vessels: posterior tibial pulses present (left foot 1+ at best, right foot 2+) and popliteal pulses present; no JVD Extremities: no edema Gastrointestinal (Abdomen): normal bowel sounds, soft, nontender, no hepatosplenomegaly Musculoskeletal: minimal swelling about the left olecrenon bursal region; no tenderness or warmth Skin: no change in appearance of left foot TMA flap, the eschar, etc. NO drainage today. Mild dorsal swelling. There IS granulation tissue over the superior aspect of the flap. Psychiatric: A+Ox3, euthymic affect Results & Data Vital Signs (Past 12 Hours) Vital Signs Temp Pulse Resp BP Pulse Ox 11/21/18 16:41 37.2 C 77 17 142/72 H 98 11/21/18 09:26 129/54 L Laboratory Results Laboratory Results - last 24 hr 11/21/18 11/21/18 05:19 05:19 WBC 7.34 RBC 3.63 L Hgb 10.2 L Hct 31.5 L MCV 86.8 MCH 28.1 MCHC 32.4 RDW Std Deviation 53.4 H RDW Coeff of Joanna 16.7 H Plt Count 158 MPV 9.5 Creatinine 1.21 Est Cr Clr Drug Dosing 63.7 Est GFR ( Amer) 77.6 Est GFR (Non-Af Amer) 67.0 PG Care Time/CCT Total # of Minutes Spent Total Time Spent with Patient: Total time spent is greater than 50% in coordination of care (as documented) at patient's floor/unit and/or counseling patient: (1) Cellulitis Site of cellulitis: extremity Site of cellulitis of extremity: lower extremity Laterality: left Qualified Code(s): L03.116 - Cellulitis of left lower limb (2) HIV (human immunodeficiency virus infection) HIV symptom status: asymptomatic Qualified Code(s): Z21 - Asymptomatic human immunodeficiency virus [HIV] infection status (3) HTN (hypertension) Hypertension type: essential hypertension Qualified Code(s): I10 - Essential (primary) hypertension
[2018-11-21] MEDS: ENOXAPARIN INJ 40 MG/0.4 ML SYR SQ SCH (20:30)
[2018-11-21] MEDS: TRIUMEQ PO SCH (20:31)
[2018-11-22] MEDS: PIPERACILLIN/TAZOBACTAM 3.375 GM in DEXTROSE 5% 100 ML IV SCH ×2 (03:00→09:35)
[2018-11-22] MEDS: VANCOMYCIN HCL 1,250 MG in SODIUM CHLORIDE 0.9% 250 ML IV SCH ×2 (03:04→11:30)
[2018-11-22] MEDS: MoRPHine SULFATE 2 MG/ML CARP IV PRN (06:09)
[2018-11-22] MEDS: LIDOCAINE 5% 1 PATCH TD SCH (08:38)
[2018-11-22] MEDS: LISINOPRIL 10 MG TAB PO SCH (08:38)
[2018-11-22] MEDS: ASPIRIN 81 MG ECTAB PO SCH (08:38)
[2018-11-22] MEDS: POLYETHYLENE (MIRALAX) 17 GM PACK PO SCH (08:38)
[2018-11-22] MEDS: GABAPENTIN 800 MG TAB PO SCH (08:38)
[2018-11-22] MEDS: MULTIVITAMIN TAB PO SCH (08:38)
[2018-11-22] MEDS: CLOPIDOGREL BISULFATE 75 MG TAB PO SCH (08:38)
[2018-11-22] MEDS ORDERED: cefTRIAXone SODIUM 2,000 MG in DEXTROSE 5% 50 ML IV SCH (14:00)
--- NOTE | 2018-11-22 15:11 | Infectious Disease Progress Nt ---
Date of Service November 22, 2018 Assessment & Plan (1) Postoperative wound infection: Patient with infected left foot wound with osteomyelitis in the setting of severe peripheral arterial disease status post vascular intervention, as well as HIV infection which appears to be well-controlled. Patient will need 6 weeks of IV antibiotics, suggest combination of vancomycin and ceftriaxone. Discussed with hospitalist service. (2) HIV (human immunodeficiency virus infection): (3) PAD (peripheral artery disease): Subjective Patient seen in follow-up for left foot infection following amputation. States pain slightly better, remains afebrile. No other new complaints. Cultures unremarkable, MRI suggestive of developing osteomyelitis as well as myositis. Review of Systems Review of Systems: All systems reviewed & are unremarkable except as noted in HPI & below Physical Exam Constitutional: WD/WN, vitals as above comfortable; no acute distress Eyes: PERRL, conjunctivae normal, anicteric sclerae ENMT: external ear and nose normal, oropharynx normal Neck: trachea midline, no thyromegaly neck nontender Respiratory: normal respiratory effort, lungs clear to auscultation normal percussion; does not use accessory muscles Cardiovascular: Rate/Rhythm: regular rate and regular rhythm Heart Sounds: normal S1 and normal S2; no gallop, no murmur and no cardiac rub Vessels: normal peripheral pulses; no JVD Gastrointestinal (Abdomen): normal bowel sounds, soft, nontender, no hepatosplenomegaly Musculoskeletal: no cyanosis or clubbing, extremities motor strength 5/5 Spine: thoracic spine normal to inspection and lumbar spine normal to inspection; no cervical spinal tenderness Skin: normal turgor and + wound (Necrotic left TMA surgical wound with induration, serous drainage); no rashes Neurologic: moves all extremities; no focal motor deficits Psychiatric: A+Ox3, euthymic affect Orientation: cooperative Lymphatic: no cervical or axillary lymphadenopathy no inguinal lymphadenopathy Results & Data Vital Signs (Past 12 Hours) Vital Signs Temp Pulse Resp BP Pulse Ox 11/22/18 07:31 37 C 63 18 138/70 100 Laboratory Results Laboratory Results - last 48 hr 11/21/18 11/21/18 05:19 05:19 WBC 7.34 RBC 3.63 L Hgb 10.2 L Hct 31.5 L MCV 86.8 MCH 28.1 MCHC 32.4 RDW Std Deviation 53.4 H RDW Coeff of Joanna 16.7 H Plt Count 158 MPV 9.5 Creatinine 1.21 Est Cr Clr Drug Dosing 63.7 Est GFR ( Amer) 77.6 Est GFR (Non-Af Amer) 67.0 Diagnostic Findings Microbiology 11/15/18 12:28 Blood Aerobic Blood Culture - Final No growth in Aerobic bottle after 5 days. 11/15/18 12:28 Blood Anaerobic Blood Culture - Final No growth in Anaerobic bottle after 5 days. 11/15/18 11:54 Blood Aerobic Blood Culture - Final No growth in Aerobic bottle after 5 days. 11/15/18 11:54 Blood Anaerobic Blood Culture - Final No growth in Anaerobic bottle after 5 days. 11/15/18 12:15 Leg Gram Stain - Final 11/15/18 12:15 Leg Wound Culture - Final Coag negative Staphylococcus MR foot LT w/o con HISTORY: 53 years-old Male recent TMA; concern for osteomyelitis chronic pain and swelling of the left foot. Clinical concern for osteomyelitis. History of prior forefoot amputation. COMPARISON: None available TECHNIQUE: Multiplanar multisequence MRI of the left foot was obtained without the use of IV contrast. FINDINGS: Heterogeneous appearance of the bone marrow with patchy decreased T1 signal and extensive patchy increased PD and STIR signal. 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 Postoperative changes from prior amputation with resection of the forefoot and midfoot with the navicular remaining. Study is limited without the use of IV contrast. There is diffuse subcutaneous, intramuscular and deep tissue edema about the foot with soft tissue ulceration of the medial midfoot distribution measuring up to at least 1.4 cm on image 26 series 9. Deep to this ulceration there is decreased T1 and increased T2 signal with ill-defined cortex of the medial aspect navicular (for example image 20 series 9). No drainable fluid collection identified. IMPRESSION: 1. Postoperative changes from prior amputation of the forefoot and midfoot with navicular, talus and calcaneus remaining. 2. There is extensive heterogeneity with increased T2 signal and decreased T1 signal throughout the bony structures suggestive of marrow edema/bone demineralization. 3. Suggested cellulitis with myositis of the foot with soft tissue ulceration of the medial midfoot distribution. Marrow changes with cortical regularity of the medial navicular may reflect developing osteomyelitis in the appropriate clinical setting. The above report was generated using voice recognition software. It may contain grammatical, syntax or spelling errors. Electronically signed by: Ugo Burris M.D. 11/20/2018 3:23 PM (1) HIV (human immunodeficiency virus infection) HIV symptom status: asymptomatic Qualified Code(s): Z21 - Asymptomatic human immunodeficiency virus [HIV] infection status
--- NOTE | 2018-11-22 17:26 | Discharge Summary ---
Date of Service date of admission - November 15, 2018 date of discharge - November 22, 2018 Admission HPI Per Admitting Provider 53-year-old AA male who is incarcerated at 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 He also underwent iliac and SFA stents on October 11 and a PEN AND PENCIL REPAIRER/SFA stent on October 15. Patient at that time was discharged on aspirin, Plavix, and Augmentin as he had a concomitant infection of the left foot. He was instructed to follow-up with the [facility] and [facility] for his foot. The admitting physician was contacted by Dr. Graham from the [facility] who felt his wounds on the left foot were progressively worsening and recommended direct admission for reevaluation and IV antibiotics. The patient himself did not feel there was any significant worsening of the foot. 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 Principal Diagnosis cellulitis of left foot stump with suspected osteomyelitis of navicular bone Discharge Exam Constitutional + thin; no acute distress and no altered mental status ENMT external ear and nose normal, oropharynx normal Respiratory normal respiratory effort, lungs clear to auscultation Cardiovascular Rate/Rhythm: regular rate and regular rhythm Heart Sounds: normal S1 and normal S2; no murmur Vessels: posterior tibial pulses present (left foot 1+ at best, right foot 2+) and popliteal pulses present; no JVD Extremities: no edema Gastrointestinal (Abdomen) normal bowel sounds, soft, nontender, no hepatosplenomegaly Skin left foot - TMA of all toes. TMA flap/incision line with intact sutures. Scant drainage from medial aspect of flap. There is black eschar appearing skin surrounding the flap. There is a small amount of pink granulation tissue at several wound edges. There is very mild swelling surrounding the flap especially on dorsal surface. left jacobs - tiny ulceration, medial aspect, no drainage or surrounding inflamm ation. Psychiatric A+Ox3, euthymic affect Lymphatic + inguinal lymphadenopathy (left - multiple nodes; all are mobile. 1 node is <1cm, 2nd node is 1.5cm.) Discharge Data Allergies Allergy/AdvReac Type Severity Reaction Status Date / Time ibuprofen [From Motrin] AdvReac Unknown Verified 11/15/18 09:26 Consultations 1. [facility] 2. Infectious Disease - Vladislav Dickey MD Procedures Performed RUE PICC line Ordered Studies 1. CTA chest - no PE, pneumonia. 2. MRI left foot - IMPRESSION: 1. Postoperative changes from prior amputation of the forefoot and midfoot with navicular, talus and calcaneus remaining. 2. There is extensive heterogeneity with increased T2 signal and decreased T1 signal throughout the bony structures suggestive of marrow edema/bone demineralization. 3. Suggested cellulitis with myositis of the foot with soft tissue ulceration of the medial midfoot distribution. Marrow changes with cortical regularity of the medial navicular may reflect developing osteomyelitis in the appropriate clinical setting. Hospital Course (1) Cellulitis: Of left foot transmetatarsal flap (patient underwent TMA of left foot on 10/18/[address] Allen). Received 7-8 days of IV vancomycin and Zosyn during this stay. Blood cultures were negative. Wound culture was taken from a medial jacobs ulceration on left leg - grew coag negative staph. Vanco will cover such. Seen by [facility] and [facility]. Conservative medical management was advised rather than repeat surgery at this time. MRI of left foot was completed on 11/20/18 -- there was concern of osteomyelitis of navicular bone. Orthopedics re-evaluated him following the MRI -- still no plans for additional surgical intervention; advised ongoing IV antibiotics as suggested by infectious disease. RUE PICC line was placed. Antibiotics were changed to IV rocephin 2 gm daily and Vancomycin 1250mg IV q8h. He will need 6 weeks of each via his PICC. He will require weekly CBC, CMP, and Sed Rate while on these antibiotics. Results to Dr Vladislav Dickey of [facility]. Recommend first set of labs on 11/25/18, then weekly thereafter. He will need vancomycin trough levels throughout his course as well with vanco trough goal of 15-20. Patient remains at HIGH RISK of needing additional surgical intervention in light of comorbidities (HIV + status, PAD, etc). He should follow-up with [facility], [facility], and Dr Clayton Allen of [facility] all within 1-2 weeks at latest. (2) Osteomyelitis of foot, left, acute: Navicular bone, left foot - as seen on MRI. see above in "cellulitis". 6 weeks of IV antibiotics advised. (3) HIV (human immunodeficiency virus infection): Continue Triumeq. Last reported viral load was zero. Managed by telemedicine at the [facility] with a provider in [facility]. (4) HTN (hypertension): Acceptable control (130s - 150s systolic) while here. Continue lisinopril. (5) PVD (peripheral vascular disease): s/p multiple stents to left leg by Dr Fortino Vázquez - September 2018. Continue dual antiplatelet therapy. Cont pravastatin. Spoke with pharmacy - ok to use crestor or pravastatin in setting of HIV meds. Recommend heart healthy diet at [facility], if possible. (6) Pleuritic chest pain: RIGHT side of chest. CTA chest negative for PE, pneumonia, rib fracture, right-sided pneumonia, etc. EKG w/o ischemic changes. No symptoms to suggest pericarditis. Added lidoderm patches with improved symptoms suggesting it was musculoskeletal in origin. no complaints of pain later on in his stay. (7) Schizo affective schizophrenia: No issues. No psychotic symptoms during the stay. (8) Moderate protein-calorie malnutrition: cont boost BID cont MVI has lost 5 kg of weight since earlier this year (7% loss) (9) Inguinal lymphadenopathy: left groin. reactive, likely due to left foot issues. follow clinically over time for resolution. Total Time Total Time Spent Total Time Spent (In Minutes): 45 Total Time Includes: Examination of the Patient, Discharge Planning, Medication Reconciliation and Communication With Other Providers ([facility] [place] [employer], orthopedics, ID) Discharge Plan Discharge Items Patient Disposition: [facility] Reason For Visit: LE CELLULITIS, W/POSSIBLE OSTEOMYELITIS Discharge Diagnosis: left foot cellulitis with suspected osteomyelitis of left foot (navicular bone) Discharge Goals: Decrease discomfort, Diagnostic testing, Improve disease control, Improve nutritional status, Learn about illness, Prevent disease and Therapeutic intervention Activity: As commented below Weightbearing: Left non-weightbearing Non-emergency contact: Primary Care Provider Call non-emergency contact if: you have any medication questions, your symptoms worsen, your pain is not controlled, your pain is worsening, your temperature is above 100.5, your wound has increased redness, your wound has increased drainage and your wound pain has increased Follow-up/Referrals: Vladislav Dickey MD [Physician] - (see Dr Vladislav Dickey - [facility] - in 1 week (preferably at his office at the [facility])) Matt Allen DO [Surgeon] - (Keep scheduled follow up in ~2 weeks.) Jn RIOS [Primary Care Provider] - Kevin Graham DO [Physician] - (see Dr Graham at the [facility] - preferably the same day as seeing Dr Vladislav Dickey ) Diet: Heart Healthy Addtl Provider Instructions: 1. heart healthy diet (low cholesterol, low fat) - if possible. 2. 100% NON-WEIGHT BEARING TO THE LEFT FOOT/LEG; weight-bear as tolerated on right leg. 3. weekly labs while on antibiotics - CBC, CMP, ESR. Obtain first set of labs on 11/25/18, and then weekly thereafter. Lab results to family practice medical doctor of [facility] and Dr Vladislav Dickey, [facility]. 4. Vancomycin trough levels - per protocol. Advise trough level on Sat, 11/23 or Sun, 11/24. Trough levels should be sent to family practice medical doctor, pharmacist of [facility], or Dr Vladislav Dickey. Trough level goal: 15-20. 5. follow-up -- * see separate section 6. leave sutures intact to left foot stump. 7. keep left foot stump clean/dry; do not get wet. Prescriptions: New pravastatin 40 mg Tablet 40 mg PO DAILY@1700 Qty: 30 RF: 5 ceftriaxone 2 gram recon soln 2 gm IV DAILY 42 Days Qty: 42 RF: 0 vancomycin 1.25 gram recon soln 1.25 gm IV Q8H 42 Days Qty: 126 RF: 0 Lactinex 1 million cell tablet,chewable 3 tab PO TID Qty: 60 RF: 2 Continued gabapentin 400 mg capsule 800 mg PO BID RF: 0 aspirin [Adult Aspirin Regimen] 81 mg tablet,delayed release (DR/EC) 81 mg PO DAILY RF: 0 cholecalciferol (vitamin D3) 5,000 unit capsule 5,000 units PO DAILY RF: 0 lisinopril 10 mg tablet 10 mg PO DAILY RF: 0 Lubriderm Daily Moisture lotion TOP RF: 0 Triumeq 600-50-300 mg tablet 1 tab PO DAILY RF: 0 multivitamin [Daily-Niki] Tablet 1 tab PO QAM Qty: 30 RF: 0 acetaminophen [Mapap (acetaminophen)] 325 mg Tablet 650 mg PO Q4H PRN (Reason: pain) Qty: 30 RF: 0 gabapentin 400 mg Capsule 400 mg PO DAILY@1600 Qty: 30 RF: 0 clopidogrel 75 mg Tablet 75 mg PO QAM Qty: 30 RF: 0 hydroxyzine HCl 25 mg Tablet 50 mg PO HS Qty: 60 RF: 0 Discontinued atorvastatin 40 mg Tablet 40 mg PO DAILY Qty: 30 RF: 0 Stand-Alone Forms: [facility]/Other Patient Handouts: Osteomyelitis Dc, PICC Care Dc Discharge Orders: Discharge Order (Routine); Ordered 11/22/18 Ordered By: Rc Weinberg Admission Data Admit Date/Time: 11/15/18 10:43 Attending Provider: Rc Weinberg Admit Provider: Cooper Ramirez Primary Care Provider: Jn RIOS Other Providers: Ramon Negron ; Matt Allen ; Vladislav Dickey ; Russ Bahena ; Jesse Gleason Service: Medical Other Interventions: Discharge Summary Assessment (RN) Last Done: 11/22/18 17:22 Pending Studies at Discharge: No DC Date/Time DO NOT enter until pt leaves facility: 11/22/18 19:43
[2018-11-22] MEDS: PRAVASTATIN SOD 40 MG TAB PO SCH (17:58)
[2018-11-22] MEDS: GABAPENTIN 400 MG CAP PO SCH (17:58)
== END 2018-11-22 19:43 | DRG 565 ==
LOC: 3W 10:43 → SUATTDRO 10:43
DX: T87.44 Infection of amputation stump, left lower extremity; F25.9 Schizoaffective disorder, unspecified; I73.9 Peripheral vascular disease, unspecified; I10 Essential (primary) hypertension; Z99.3 Dependence on wheelchair; B95.8 Unspecified staphylococcus as the cause of diseases classified elsewhere; T81.40XA Infection following a procedure, unspecified, initial encounter; Z68.1 Body mass index [BMI] 19.9 or less, adult; L03.116 Cellulitis of left lower limb; M86.9 Osteomyelitis, unspecified; Z79.899 Other long term (current) drug therapy; Z74.09 Other reduced mobility; F17.210 Nicotine dependence, cigarettes, uncomplicated; Z88.6 Allergy status to analgesic agent; Z21 Asymptomatic human immunodeficiency virus [HIV] infection status; Z79.02 Long term (current) use of antithrombotics/antiplatelets; Z95.820 Peripheral vascular angioplasty status with implants and grafts; Z79.2 Long term (current) use of antibiotics; E78.5 Hyperlipidemia, unspecified; E44.0 Moderate protein-calorie malnutrition; R59.0 Localized enlarged lymph nodes; L97.829 Non-pressure chronic ulcer of other part of left lower leg with unspecified severity; Z79.82 Long term (current) use of aspirin; Z89.432 Acquired absence of left foot; R07.81 Pleurodynia